=== PATIENT | female | born 1965 | race Two or more races ===

== ENCOUNTER 2016-05-25 22:27 | Emergency (ER) | payer BC, MEDICARE, OTHER ==
[2016-05-25] MEDS ORDERED: NORMAL SALINE 1000 ML 1,000 ML IV ONE (23:42)
[2016-05-25] MEDS ORDERED: HYDROMORPHONE HCL INJ/PF 2 MG/ML AMPULE IV ONE (23:43)
[2016-05-25] MEDS ORDERED: CLINDAMYCIN 300 MG/D5W RTU 50 ML IV ONE (23:45)
--- NOTE | 2016-05-25 23:50 | ER Document Report ---
[id number] INFECTION Notes: Patient is 51-year-old female with a history of lupus, vasculitis, Sjogren syndrome. She's following chemotherapy for these underlying autoimmune conditions back in November. She's not had it since November. She presents to the ER with complaint of severe pain throughout her body and return of her vasculitis-type rash. She said last time she had this was in March she became very ill and had to be transferred to [facility]. She says this is the beginning of her symptoms and she fears that her symptoms could be progressing to a blood infection like she had in the past. She currently does not have a port. She denies any vomiting. She has subjective fevers at home. She has no other complaints at this time. She did bring her discharge paperwork from [facility] from her visit there in March. It appears that she was discharged home with clindamycin. She cannot remove what bacteria she had when she was admitted there. I will request the medical records from [facility] to get further information. TRAVEL OUTSIDE OF THE [place] IN LAST 30 DAYS: No - Related Data Allergies/Adverse Reactions: amoxicillin [Amoxicillin] Allergy (Severe, Verified 05/25/16 22:50) Anaphylaxis clarithromycin [From Biaxin] Allergy (Severe, Verified 05/25/16 22:50) Severe N&V eszopiclone [From Lunesta] Allergy (Severe, Verified 05/25/16 22:50) Hyperactivity Iodinated Contrast Media - Oral and [IV Dye, Iodine Containing] Allergy (Severe , Verified 05/25/16 22:50) Anaphylaxis lisinopril [Lisinopril] Allergy (Severe, Verified 05/25/16 22:50) Severe cough Penicillins Allergy (Severe, Verified 05/25/16 22:50) Anaphylaxis lamotrigine [From Lamictal] Allergy (Verified 05/25/16 22:50) sulfamethoxazole [From Bactrim] Allergy (Verified 05/25/16 22:50) trimethoprim [From Bactrim] Allergy (Verified 05/25/16 22:50) Past Medical History - Social History Smoking Status: Never Smoker Frequency of alcohol use: None Drug Abuse: None Family History: Reviewed & Not Pertinent Patient has suicidal ideation: No Patient has homicidal ideation: No - Past Medical History Cardiac Medical History: Reports: Hx Hypertension - Family tells me that her blood pressure is often 60-80 systolic at home Denies: Hx Coronary Artery Disease, Hx Heart Attack Pulmonary Medical History: Denies: Hx Asthma, Hx Bronchitis, Hx COPD, Hx Pneumonia Neurological Medical History: Reports: Hx Cerebrovascular Accident - Pt unsure when; to followup with Dr. Wesley. Denies: Hx Seizures Endocrine Medical History: Reports: Hx Diabetes Mellitus Type 2 Renal/ Medical History: Denies: Hx Peritoneal Dialysis Musculoskeltal Medical History: Reports Hx Arthritis - Rheumatoid arthritis, lupus, vasculitis, Sjogren syndrome Past Surgical History: Reports: Hx Appendectomy, Hx Breast Surgery, Hx Hysterectomy - Immunizations Hx Diphtheria, Pertussis, Tetanus Vaccination: Yes Review of Systems - Review of Systems Notes: My Normal Review Basic REVIEW OF SYSTEMS: CONSTITUTIONAL : Denies fever, chills, or sweats. Denies recent illness. EENT: Denies eye, ear, throat, or mouth pain or symptoms. Denies nasal or sinus congestion. CARDIOVASCULAR: Denies chest pain. RESPIRATORY: Denies cough, cold, or chest congestion. Denies shortness of breath, difficulty breathing, or wheezing. GASTROINTESTINAL: Denies abdominal pain. Denies nausea, vomiting, or diarrhea. Denies constipation. Last BM: MUSCULOSKELETAL: Body aches. SKIN: Few scattered papules. NEUROLOGICAL: Denies altered mental status or loss of consciousness. Denies headache. Denies weakness or paralysis or loss of use of either side. Denies problems with gait or speech. Denies sensory or motor loss. ALL OTHER SYSTEMS REVIEWED AND NEGATIVE. Physical Exam - Vital signs Vitals: Pulse Ox 98 05/26/16 03:16 - Notes Notes: General Appearance: Well nourished, alert, cooperative, no acute distress, moderate obvious discomfort. Vitals: reviewed, See vital signs table. Head: no swelling or tenderness to the head Eyes: PERRL, EOMI, Conjuctiva clear Mouth: No decreasd moisture Throat: No tonsillar inflammation, No airway obstruction, No lymphadenopathy Neck: Supple, no neck tenderness, No thyromegaly Lungs: No wheezing, No rales, No rhonci, No accessory muscle use, good air exchange bilaterally. Heart: Tachycardic rate, Regular rythm, No murmur, no rub Abdomen: Normal BS, soft, No rigidity, No abdominal tenderness, No guarding, no rebound, no abdominal masses, no organomegaly Extremities: strength 5/5 in all extremities, good pulses in all extremities, no swelling or tenderness in the extremities, no edema. Skin: Patient has dark spots all over her skin from the previous vasculitis rash in her left scars. She has a few scattered red papules on her arms and legs. She says these are new in the last 24 hours. Neuro: speech clear, oriented x 3, normal affect, responds appropriately to questions. Course - Vital Signs Vital signs: Temp Pulse Resp BP Pulse Ox 97.7 F 104 H 18 95/56 L 99 05/26/16 05:34 05/26/16 05:34 05/26/16 05:34 05/26/16 05:34 05/26/16 05:34 - Laboratory Result Diagrams: 05/25/16 23:59 05/25/16 23:59 Laboratory results interpreted by me: 05/25/16 05/25/16 05/26/16 23:59 23:59 02:11 WBC 15.1 H Hct 35.4 L RDW 16.5 H Band Neutrophils % 2 L Abs Neuts (Manual) 11.9 H Sodium 136.6 L BUN 21 H Glucose 202 H Urine Glucose (UA) 150 H - Transfer of Care Notes: 05/26/16 06:35 I was able to obtain the medical records from [facility] for when she was transferred there.. 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 She developed MSSA bacteremia related to her port. Her port was removed. Currently the patient looks very well clinically. She has a slightly elevated excite ptosis however is only 15,000 and this is to be expected being that she is on long-term prednisone use. She has no fevers. She initially has some tachycardia when she first arrived but this was relieved after she received pain medicine. She's had no hypertension. She does present saying that she's getting some of the red dots however she has maybe a total of 6 very small red papules that are in no way consistent with the rash that she had previously. I know this because she brought a picture of the rash when she had it in March. Based on her exam she obviously does not have full-blown scalded skin syndrome currently. She is not septic or toxic appearing. She looks very well. Due to her history and her being immunosuppressed from prednisone there was placed on clindamycin in case there is a low chance that this is beginning of a recurrent infection. Clindamycin is what she was discharged home on from [facility] back in March. Patient was complaining of her back pain as were most her pain was. Patient's had this pain several times in the past and says it's recurrent in relation to her underlying disease process. Her pain was much improved with a dose of Valium with fentanyl. I will write her a short prescription for Valium. She is already on Dilaudid orally at home. I strongly encourage her to return to ER immediately if she develops any fever, she gets a spreading rash, she feels that she is worsening in any way, or she feels unwell. I encouraged follow up with her doctor on Friday. Patient agrees with plan and will be discharged home. Dictation of this chart was performed using voice recognition software; therefore, there may be some unintended grammatical errors. Discharge - Discharge Clinical Impression: Body aches, Rash Condition: Good Disposition: HOME, SELF-CARE Additional Instructions: Please do not take the Valium when taking your other muscle relaxers. Also please to not take more than prescribed especially when taking it in conjunction with your pain medicine as this can make you sleepy. Please follow closely with your doctor early this week for reevaluation. Have a low threshold to return to ER immediately if you have spreading of the rash, any fevers, vomiting, or feel that your symptoms are worsening in any way. Prescriptions: Clindamycin HCl 300 mg PO ASDIR #56 capsule Diazepam [Valium 5 mg Tablet] 5 mg PO QIDP PRN #15 tablet PRN Reason: muscle spasm Referrals: TERRENCE SAMS MD [Primary Care Provider] - 05/27/16
[2016-05-26 00:22] LABS: HEMATOCRIT 35.4 % (36.0-47.0); HGB HCT DIFFERENCE 0.6; MEAN CORPUSCULAR HEMOGLOBIN 29.3 pg (27.0-33.4); MEAN CORPUSCULAR VOLUME 86 fl (80-97); RED BLOOD COUNT 4.11 10^6/uL (3.72-5.28); RED CELL DISTRIBUTION WIDTH 16.5 % (11.5-14.0); WHITE BLOOD COUNT 15.1 10^3/uL (4.0-10.5)
[2016-05-26 00:35] LABS: ALANINE AMINOTRANSFERASE 35 U/L (9-52); ALBUMIN 4.2 g/dL (3.5-5.0); ALKALINE PHOSPHATASE 67 U/L (38-126); ANION GAP 12 (5-19); ASPARTATE AMINO TRANSFERASE 30 U/L (14-36); BILIRUBIN,TOTAL 0.7 mg/dL (0.2-1.3); BLOOD UREA NITROGEN 21 mg/dL (7-20); CALCIUM 10.1 mg/dL (8.4-10.2); CARBON DIOXIDE 27 mmol/L (22-30); CHLORIDE 98 mmol/L (98-107); CREATININE RESULT 0.74 mg/dL (0.52-1.25); GLUCOSE 202 mg/dL (75-110); POTASSIUM 4.1 mmol/L (3.6-5.0); SODIUM 136.6 mmol/L (137-145); TOTAL PROTEIN 6.8 g/dL (6.3-8.2)
[2016-05-26 00:40] LABS: BAND NEUTROPHILS % (MANUAL) 2 % (3-5); BASOPHILS % (MANUAL) 0 % (0-2); EOSINOPHILS % (MANUAL) 1 % (0-6); LYMPHOCYTES % (MANUAL) 14 % (13-45); TOTAL CELLS COUNTED 100
[2016-05-26 00:41] LABS: ANISOCYTOSIS 1+; POLYCHROMASIA SLIGHT; TOXIC GRANULATION SLIGHT
[2016-05-26] MEDS ORDERED: HYDROMORPHONE HCL INJ/PF 2 MG/ML AMPULE IV ONE (02:26)
[2016-05-26 02:39] LABS: APPEARANCE,URINE CLEAR; BILIRUBIN,URINE NEGATIVE (NEGATIVE); GLUCOSE, URINE 150 mg/dL (NEGATIVE); KETONES,URINE NEGATIVE (NEGATIVE); LEUKOCYTE ESTERASE,URINE NEGATIVE (NEGATIVE); NITRITE,URINE NEGATIVE (NEGATIVE); PROTEIN,URINE NEGATIVE (NEGATIVE); URINE SPECIFIC GRAVITY 1.017; UROBILINOGEN,URINE NEGATIVE mg/dL (<2.0)
[2016-05-26] MEDS ORDERED: FENTANYL CITRATE INJ/PF 100 MCG/2 ML AMPUL IV ONE (03:17)
[2016-05-26] MEDS ORDERED: DIAZEPAM INJ 10 MG/2 ML DISP.SYRIN IV ONE (03:51)
[2016-05-26 05:45] VITALS: BP 95/56
== END 2016-05-26 05:35 | disposition home or self-care (01) ==
LOC: ER 22:27
DX: R52 Pain, unspecified (principal); R21 Rash and other nonspecific skin eruption; M32.9 Systemic lupus erythematosus, unspecified; M35.00 Sjogren syndrome, unspecified; Z79.899 Other long term (current) drug therapy
CPT/HCPCS: 99284; 36415; 87040; 85025; 87077; 80053; 81001; 71010; J3490; J3360; J3010; J1170; J7030

== ENCOUNTER → 2016-10-14 | Outpatient (CLI) | payer BC, MEDICARE, OTHER ==
[2016-10-14 16:33] LABS: ABSOLUTE BASOPHILS # (AUTO) 0.1 10^3/uL (0.0-0.2); ABSOLUTE EOSINOPHILS # (AUTO) 0.3 10^3/uL (0.0-0.6); ABSOLUTE LYMPHOCYTES (AUTO) 1.6 10^3/uL (0.5-4.7); ABSOLUTE MONOCYTES (AUTO) 0.5 10^3/uL (0.1-1.4); ABSOLUTE NEUT (AUTO) 7.1 10^3/uL (1.7-8.2); BASOPHILS % (AUTO) 1.2 % (0-2); HEMATOCRIT 41.8 % (36.0-47.0); HEMOGLOBIN 13.7 g/dL (12.0-15.5); HGB HCT DIFFERENCE -0.7; LYMPHOCYTES % (AUTO) 16.7 % (13-45); MEAN CORPUSCULAR HEMOGLOBIN 27.3 pg (27.0-33.4); MEAN CORPUSCULAR HGB CONC 32.8 g/dL (32.0-36.0); MEAN CORPUSCULAR VOLUME 83 fl (80-97); MONOCYTES % (AUTO) 5.7 % (3-13); RED BLOOD COUNT 5.02 10^6/uL (3.72-5.28); RED CELL DISTRIBUTION WIDTH 13.3 % (11.5-14.0); SEGMENTED NEUTROPHILS % (AUTO) 73.4 % (42-78); WHITE BLOOD COUNT 9.6 10^3/uL (4.0-10.5)
[2016-10-14 16:51] LABS: ALANINE AMINOTRANSFERASE 34 U/L (9-52); ALBUMIN 4.8 g/dL (3.5-5.0); ALKALINE PHOSPHATASE 84 U/L (38-126); ANION GAP 13 (5-19); ASPARTATE AMINO TRANSFERASE 23 U/L (14-36); BILIRUBIN,DIRECT 0.3 mg/dL (0.0-0.4); BILIRUBIN,TOTAL 0.7 mg/dL (0.2-1.3); BLOOD UREA NITROGEN 13 mg/dL (7-20); CARBON DIOXIDE 30 mmol/L (22-30); CHLORIDE 99 mmol/L (98-107); CREATININE RESULT 0.69 mg/dL (0.52-1.25); GLUCOSE 174 mg/dL (75-110); POTASSIUM 3.2 mmol/L (3.6-5.0); SODIUM 141.6 mmol/L (137-145); TOTAL PROTEIN 8.1 g/dL (6.3-8.2)
[2016-10-14 17:09] LABS: ERYTHROCYTE SEDIMENTATION RATE 28 mm/hr (0-30)
== END ==
LOC: OD 15:35
PROVIDERS: ATTEND Internal Medicine Rheumatology
DX: I77.6 Arteritis, unspecified (principal); M06.4 Inflammatory polyarthropathy; M31.0 Hypersensitivity angiitis; M25.50 Pain in unspecified joint; M35.00 Sjogren syndrome, unspecified; Z79.899 Other long term (current) drug therapy
CPT/HCPCS: 36415; 80053; 85025; 85652; 86140

== ENCOUNTER 2016-11-08 20:18 | Emergency (ER) | payer BC, MEDICARE, OTHER ==
--- NOTE | 2016-11-08 22:40 | ER Document Report ---
ED General - General Chief Complaint: Fever Stated Complaint: POSSIBLE FEVER/FATIGUE/HEADACHE Time Seen by Provider: 11/08/16 22:22 Notes: Patient is a 51-year-old female that comes emergency department for chief complaint of fevers and weakness for 1 week. She states that she has body pains all over including headaches, intermittent pains in her chest, and she has difficulty getting out of bed. She denies vomiting, abdominal pain, shortness of breath, dysuria. She is on methotrexate currently for history of rheumatoid arthritis, lupus, Sjogren's, and vasculitis. She is also a type II diabetic, insulin-dependent. She just finished macrobid last week for "a kidney infection". She is wearing a fentanyl patch for pain. TRAVEL OUTSIDE OF THE [place] IN LAST 30 DAYS: No - Related Data Allergies/Adverse Reactions: amoxicillin [Amoxicillin] Allergy (Severe, Verified 05/25/16 22:50) Anaphylaxis clarithromycin [From Biaxin] Allergy (Severe, Verified 05/25/16 22:50) Severe N&V eszopiclone [From Lunesta] Allergy (Severe, Verified 05/25/16 22:50) Hyperactivity Iodinated Contrast- Oral and IV Dye [IV Dye, Iodine Containing] Allergy (Severe , Verified 05/25/16 22:50) Anaphylaxis lisinopril [Lisinopril] Allergy (Severe, Verified 05/25/16 22:50) Severe cough Penicillins Allergy (Severe, Verified 05/25/16 22:50) Anaphylaxis lamotrigine [From Lamictal] Allergy (Verified 05/25/16 22:50) sulfamethoxazole [From Bactrim] Allergy (Verified 05/25/16 22:50) trimethoprim [From Bactrim] Allergy (Verified 05/25/16 22:50) Past Medical History - General Information source: Patient - Social History Smoking Status: Never Smoker Frequency of alcohol use: None Drug Abuse: None Lives with: Family Family History: Reviewed & Not Pertinent Patient has suicidal ideation: No Patient has homicidal ideation: No - Past Medical History Cardiac Medical History: Reports: Hx Hypertension - Family tells me that her blood pressure is often 60-80 systolic at home Denies: Hx Coronary Artery Disease, Hx Heart Attack Pulmonary Medical History: Denies: Hx Asthma, Hx Bronchitis, Hx COPD, Hx Pneumonia Neurological Medical History: Reports: Hx Cerebrovascular Accident - Pt unsure when; to followup with Dr. Wesley. Denies: Hx Seizures Endocrine Medical History: Reports: Hx Diabetes Mellitus Type 2 Renal/ Medical History: Denies: Hx Peritoneal Dialysis Musculoskeltal Medical History: Reports Hx Arthritis - Rheumatoid arthritis, lupus, vasculitis, Sjogren syndrome Past Surgical History: Reports: Hx Appendectomy, Hx Breast Surgery, Hx Hysterectomy - Immunizations Hx Diphtheria, Pertussis, Tetanus Vaccination: Yes Review of Systems - Review of Systems Constitutional: See HPI EENT: No symptoms reported Cardiovascular: See HPI Respiratory: No symptoms reported Gastrointestinal: No symptoms reported Genitourinary: No symptoms reported Female Genitourinary: No symptoms reported Musculoskeletal: See HPI Skin: No symptoms reported Hematologic/Lymphatic: No symptoms reported Neurological/Psychological: See HPI Physical Exam - Vital signs Vitals: Temp Pulse Resp BP Pulse Ox 99.1 F 113 H 16 125/75 94 11/08/16 21:03 11/08/16 21:03 11/08/16 21:03 11/08/16 21:03 11/08/16 21:03 Interpretation: Normal - General General appearance: Alert, Anxious - patient appears nervous but is not in any distress In distress: None - HEENT Head: Normocephalic, Atraumatic Eyes: Normal Conjunctiva: Normal Extraocular movements intact: Yes Eyelashes: Normal Pupils: PERRL Sinus: Normal Nasal: Normal Mouth/Lips: Normal Mucous membranes: Normal Pharynx: Normal Neck: Normal. No: Brudzinski, Meningismus - Respiratory Respiratory status: No respiratory distress. No: Labored, Tachypnea Chest status: Nontender Breath sounds: Normal. No: Decreased air movement, Nonproductive cough, Wheezing Chest palpation: Normal - Cardiovascular Rhythm: Regular, Tachycardia Heart sounds: Normal auscultation, S1 appreciated, S2 appreciated Murmur: No - Abdominal Inspection: Normal Distension: No distension Bowel sounds: Normal Tenderness: Nontender. No: Tender, Guarding Organomegaly: No organomegaly - Back Back: Normal, Nontender - Extremities General upper extremity: Normal inspection, Nontender, Normal color, Normal ROM , Normal temperature General lower extremity: Normal inspection, Nontender, Normal color, Normal ROM , Normal temperature, Normal weight bearing. 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 However she is alert and well-appearing. Clear lungs, soft abdomen, unremarkable exam other than slight reddish discoloration of the lower extremities which patient reports is chronic with her vasculitis. No nuchal rigidity. No fever here on evaluation. Patient initially mildly tachycardic, after calming down this resolved, patient was also given IV fluids. No leukocytosis, chemistry shows mild hyperglycemia with no acidosis, lactic acid nonspecific at 2.9, urine with a few white blood cells but is nonspecific as well. Chest x-ray unremarkable. Venous blood gas unremarkable. Discussed with Dr. Kulkarni. He recommends that a repeat lactic acid, chemistry, and CBC be performed to trend patient and if this is improving that patient can be discharged with broad-spectrum coverage with close follow-up obstructed and cultures pending. I discussed this with patient, she is very happy with this plan. Lactic acid downtrending, repeat labs unremarkable. Patient well-appearing on reexamination as well. Patient will be discharged with doxycycline, follow-up with her provider closely, and return for any concerning symptoms. Patient asked to talk at the end of her stay, she did talk for about 15 minutes about her life and situation, she states she feels better afterwards. She has a supportive at home. She denies SI or HI. She also states that she has just signed DNR paperwork. Patient states she will return if she worsens in any way. - Vital Signs Vital signs: Temp Pulse Resp BP Pulse Ox 98.9 F 113 H 13 119/70 97 11/09/16 00:30 11/08/16 21:03 11/09/16 02:06 11/09/16 01:15 11/09/16 01:15 - Laboratory Result Diagrams: 11/09/16 02:30 11/09/16 02:30 Laboratory results interpreted by me: 11/08/16 11/08/16 11/08/16 23:30 23:30 23:30 Hgb Hct RDW 14.2 H Lymphocytes % Potassium Chloride BUN Glucose Lactic Acid 2.9 H Total Protein Urine Glucose (UA) >=500 H Urine Ketones TRACE H Ur Leukocyte Esterase TRACE H 11/08/16 11/09/16 11/09/16 23:33 02:00 02:30 Hgb 11.6 L Hct 33.7 L RDW Lymphocytes % 12.3 L Potassium 3.4 L Chloride 97 L BUN 22 H Glucose 310 H Lactic Acid 2.5 H Total Protein Urine Glucose (UA) Urine Ketones Ur Leukocyte Esterase 11/09/16 02:30 Hgb Hct RDW Lymphocytes % Potassium Chloride BUN 21 H Glucose 288 H Lactic Acid Total Protein 6.2 L Urine Glucose (UA) Urine Ketones Ur Leukocyte Esterase Discharge - Discharge Clinical Impression: Body aches Fever Qualifiers: Fever type: unspecified Qualified Code(s): R50.9 - Fever, unspecified Condition: Stable Disposition: HOME, SELF-CARE Additional Instructions: The exact source of infection is not clear. We are covering you broadly with doxycycline. Follow up with your Provider in the next 2-3 days for additional monitoring and management. Return to the ED for any concerning or worsening symptoms - difficulty breathing , stiff neck, abdominal pain, vomiting, etc. Prescriptions: Doxycycline Hyclate 100 mg PO BID #14 capsule Referrals: TERRENCE SAMS MD [Primary Care Provider] - Follow up as needed
--- NOTE | 2016-11-08 23:03 | RADIOLOGY REPORT (SQ) ---
EXAM DESCRIPTION: CHEST PA/LAT COMPLETED DATE/TIME: 11/08/2016 10:55 pm REASON FOR STUDY: fever, chest pain COMPARISON: 03/13/2016 EXAM PARAMETERS: NUMBER OF VIEWS: two views TECHNIQUE: Digital Frontal and Lateral radiographic views of the chest acquired. RADIATION DOSE: NA LIMITATIONS: none FINDINGS: LUNGS AND PLEURA: No acute opacities, masses or pneumothorax. No pleural effusion. MEDIASTINUM AND HILAR STRUCTURES: Stable. HEART AND VASCULAR STRUCTURES: Stable. BONES: No acute findings. HARDWARE: None in the chest. OTHER: No other significant finding. IMPRESSION: No acute findings. TECHNICAL DOCUMENTATION: JOB ID: [id number] [employer]- All Rights Reserved
[2016-11-09 00:11] LABS: VENOUS BLOOD BASE EXCESS 2.4 mmol/L; VENOUS BLOOD HCO3 29.2 mmol/L (20-32); VENOUS BLOOD PCO2 54.1 mmHg (35-63); VENOUS BLOOD PH 7.35 (7.30-7.42)
[2016-11-09 00:12] LABS: APPEARANCE,URINE CLEAR; BILIRUBIN,URINE NEGATIVE (NEGATIVE); GLUCOSE, URINE >=500 mg/dL (NEGATIVE); KETONES,URINE TRACE mg/dL (NEGATIVE); LEUKOCYTE ESTERASE,URINE TRACE (NEGATIVE); NITRITE,URINE NEGATIVE (NEGATIVE); PROTEIN,URINE NEGATIVE (NEGATIVE); URINE SPECIFIC GRAVITY 1.018; UROBILINOGEN,URINE NEGATIVE mg/dL (<2.0)
[2016-11-09 00:14] LABS: ABSOLUTE BASOPHILS # (AUTO) 0.1 10^3/uL (0.0-0.2); ABSOLUTE EOSINOPHILS # (AUTO) 0.3 10^3/uL (0.0-0.6); ABSOLUTE LYMPHOCYTES (AUTO) 1.6 10^3/uL (0.5-4.7); ABSOLUTE MONOCYTES (AUTO) 0.7 10^3/uL (0.1-1.4); BASOPHILS % (AUTO) 1.1 % (0-2); EOSINOPHILS % (AUTO) 3.2 % (0-6); HEMATOCRIT 37.4 % (36.0-47.0); HEMOGLOBIN 12.6 g/dL (12.0-15.5); HGB HCT DIFFERENCE 0.4; LYMPHOCYTES % (AUTO) 16.7 % (13-45); MEAN CORPUSCULAR HEMOGLOBIN 28.4 pg (27.0-33.4); MEAN CORPUSCULAR HGB CONC 33.7 g/dL (32.0-36.0); MEAN CORPUSCULAR VOLUME 84 fl (80-97); MONOCYTES % (AUTO) 7.7 % (3-13); RED BLOOD COUNT 4.44 10^6/uL (3.72-5.28); RED CELL DISTRIBUTION WIDTH 14.2 % (11.5-14.0); SEGMENTED NEUTROPHILS % (AUTO) 71.3 % (42-78); WHITE BLOOD COUNT 9.7 10^3/uL (4.0-10.5)
[2016-11-09] MEDS ORDERED: FENTANYL CITRATE INJ/PF 100 MCG/2 ML AMPUL IV ONE (00:17)
[2016-11-09 00:28] LABS: ALANINE AMINOTRANSFERASE 35 U/L (9-52); ALBUMIN 4.3 g/dL (3.5-5.0); ALKALINE PHOSPHATASE 86 U/L (38-126); ANION GAP 16 (5-19); ASPARTATE AMINO TRANSFERASE 27 U/L (14-36); BILIRUBIN,DIRECT 0.4 mg/dL (0.0-0.4); BILIRUBIN,TOTAL 0.5 mg/dL (0.2-1.3); BLOOD UREA NITROGEN 22 mg/dL (7-20); CARBON DIOXIDE 24 mmol/L (22-30); CHLORIDE 97 mmol/L (98-107); CREATINE KINASE 45 U/L (30-135); CREATININE RESULT 0.68 mg/dL (0.52-1.25); GLUCOSE 310 mg/dL (75-110); POTASSIUM 3.4 mmol/L (3.6-5.0); SODIUM 137.4 mmol/L (137-145); TOTAL PROTEIN 6.8 g/dL (6.3-8.2)
[2016-11-09 00:38] LABS: CREATINE KINASE MB 0.39 ng/mL (<4.55)
[2016-11-09 00:44] LABS: TROPONIN I < 0.012 ng/mL
[2016-11-09] MEDS ORDERED: NORMAL SALINE 1000 ML 1,000 ML IV ONE (00:46)
[2016-11-09] MEDS ORDERED: DOXYCYCLINE HYCLATE INJ 100 MG VIAL IV ONE (01:11)
[2016-11-09 02:38] VITALS: BP 119/70
[2016-11-09 02:51] LABS: ABSOLUTE BASOPHILS # (AUTO) 0.1 10^3/uL (0.0-0.2); ABSOLUTE EOSINOPHILS # (AUTO) 0.2 10^3/uL (0.0-0.6); ABSOLUTE LYMPHOCYTES (AUTO) 1.1 10^3/uL (0.5-4.7); ABSOLUTE MONOCYTES (AUTO) 0.7 10^3/uL (0.1-1.4); ABSOLUTE NEUT (AUTO) 6.7 10^3/uL (1.7-8.2); EOSINOPHILS % (AUTO) 2.6 % (0-6); HEMATOCRIT 33.7 % (36.0-47.0); HEMOGLOBIN 11.6 g/dL (12.0-15.5); HGB HCT DIFFERENCE 1.1; LYMPHOCYTES % (AUTO) 12.3 % (13-45); MEAN CORPUSCULAR HEMOGLOBIN 28.6 pg (27.0-33.4); MEAN CORPUSCULAR HGB CONC 34.4 g/dL (32.0-36.0); MEAN CORPUSCULAR VOLUME 83 fl (80-97); MONOCYTES % (AUTO) 7.5 % (3-13); RED BLOOD COUNT 4.05 10^6/uL (3.72-5.28); SEGMENTED NEUTROPHILS % (AUTO) 76.6 % (42-78); WHITE BLOOD COUNT 8.8 10^3/uL (4.0-10.5)
[2016-11-09 02:56] LABS: ALANINE AMINOTRANSFERASE 35 U/L (9-52); ALBUMIN 3.8 g/dL (3.5-5.0); ALKALINE PHOSPHATASE 74 U/L (38-126); ANION GAP 12 (5-19); ASPARTATE AMINO TRANSFERASE 23 U/L (14-36); BILIRUBIN,DIRECT 0.4 mg/dL (0.0-0.4); BILIRUBIN,TOTAL 0.5 mg/dL (0.2-1.3); BLOOD UREA NITROGEN 21 mg/dL (7-20); CALCIUM 8.4 mg/dL (8.4-10.2); CARBON DIOXIDE 24 mmol/L (22-30); CHLORIDE 101 mmol/L (98-107); CREATININE RESULT 0.71 mg/dL (0.52-1.25); GLUCOSE 288 mg/dL (75-110); POTASSIUM 3.8 mmol/L (3.6-5.0); SODIUM 137.1 mmol/L (137-145); TOTAL PROTEIN 6.2 g/dL (6.3-8.2)
--- NOTE | 2016-11-09 10:03 | EKG REPORT ---
SEVERITY:- ABNORMAL ECG - SINUS TACHYCARDIA PROBABLE INFERIOR INFARCT, AGE INDETERMINATE : Confirmed by: Roland Frank MD 09-Nov-2016 10:03:00
== END 2016-11-09 04:34 | disposition home or self-care (01) ==
LOC: ER 20:18
DX: R50.9 Fever, unspecified (principal); R53.1 Weakness; R51 Headache; R07.9 Chest pain, unspecified; M35.00 Sjogren syndrome, unspecified; F41.9 Anxiety disorder, unspecified; R00.0 Tachycardia, unspecified; I77.6 Arteritis, unspecified; M06.9 Rheumatoid arthritis, unspecified; Z79.899 Other long term (current) drug therapy; E11.65 Type 2 diabetes mellitus with hyperglycemia; Z79.4 Long term (current) use of insulin; Z87.440 Personal history of urinary (tract) infections; Z88.1 Allergy status to other antibiotic agents; Z91.041 Radiographic dye allergy status; Z88.8 Allergy status to other drugs, medicaments and biological substances; Z87.892 Personal history of anaphylaxis; Z88.0 Allergy status to penicillin; Z86.73 Personal history of transient ischemic attack (TIA), and cerebral infarction without residual deficits; Z66 Do not resuscitate
CPT/HCPCS: 93005; 99285; 96361; 96375; 96365; 36415; 87040; 87086; 82553; 82550; 83605 ×2; 85025; 80053; 81001; 84484; 82803; 71020; 93010; J3490; J3010; J7030

== ENCOUNTER 2017-03-07 04:58 | Emergency (ER) | payer BC, MEDICARE, OTHER ==
[2017-03-07] MEDS ORDERED: PROCHLORPERAZINE EDISYLATE INJ 10 MG/2 ML VIAL IM ONE (05:39)
[2017-03-07] MEDS ORDERED: DIPHENHYDRAMINE HCL 50 MG/ML VIAL IV ONE (05:39)
--- NOTE | 2017-03-07 05:42 | ER Document Report ---
ED General - General TRAVEL OUTSIDE OF THE [place]. IN LAST 30 DAYS: No <RICARDO GAFFNEY - Last Filed: 03/07/17 06:52> <DANIELLE HAYNES - Last Filed: 03/07/17 08:11> - General Chief Complaint: Headache >24 hrs old Stated Complaint: WEAKNESS Time Seen by Provider: 03/07/17 05:38 - HPI Notes: Patient is a 51-year-old female with a history of rheumatoid arthritis, lupus, Sjogren's, vasculitis, insulin-dependent diabetes, HTN who presents to the ED complaining of an ongoing headache and dizziness 1 month, but has been more frequent over the last 1.5 weeks. Pt states that she has also begun having hallucinations of things jumping on the nassar over the last couple of weeks. Pt states that she does take pain medication for her chronic WINCHESTER's, but it has not been helping. Pt states that she had an MRI in january that showed lesions on the left side of her brain. Pt states that she is being eval'd by Neurology as well as her PCM. Pt states that she is still eating and drinking w/o any difficulties. She is still urinating normally and having normal BM's. Pt will have occ nausea from her dizziness which she will take zofran for. Pt is also on methotrexate and prednisone daily. Pt is also doing chemotherapy for her autoimmune processes. Her last treatment was Friday. Pt denies any IV drug use or ETOH intake. Denies any fever, head injury, neck pain, changes in vision /speech/mentation/hearing, URI, sore throat, chest pain, palpitations, syncope, cough, shortness of breath, wheeze, dyspnea, abdominal pain, vomiting/diarrhea, urinary retention, dysuria, hematuria, back pain, loss of control of bowel or bladder, numbness/tingling, saddle anesthesia, muscle paralysis/weakness, or rash. (RICARDO GAFFNEY) - Related Data Allergies/Adverse Reactions: amoxicillin [Amoxicillin] Allergy (Severe, Verified 05/25/16 22:50) Anaphylaxis clarithromycin [From Biaxin] Allergy (Severe, Verified 05/25/16 22:50) Severe N&V eszopiclone [From Lunesta] Allergy (Severe, Verified 05/25/16 22:50) Hyperactivity Iodinated Contrast- Oral and IV Dye [IV Dye, Iodine Containing] Allergy (Severe , Verified 05/25/16 22:50) Anaphylaxis lisinopril [Lisinopril] Allergy (Severe, Verified 05/25/16 22:50) Severe cough Penicillins Allergy (Severe, Verified 05/25/16 22:50) Anaphylaxis lamotrigine [From Lamictal] Allergy (Verified 05/25/16 22:50) sulfamethoxazole [From Bactrim] Allergy (Verified 05/25/16 22:50) trimethoprim [From Bactrim] Allergy (Verified 05/25/16 22:50) Past Medical History - Social History Smoking Status: Unknown if Ever Smoked Family History: Reviewed & Not Pertinent Patient has suicidal ideation: No Patient has homicidal ideation: No - Past Medical History Cardiac Medical History: Reports: Hx Hypertension - Family tells me that her blood pressure is often 60-80 systolic at home Denies: Hx Coronary Artery Disease, Hx Heart Attack Pulmonary Medical History: Denies: Hx Asthma, Hx Bronchitis, Hx COPD, Hx Pneumonia Neurological Medical History: Reports: Hx Cerebrovascular Accident - Pt unsure when; to followup with Dr. Wesley. Denies: Hx Seizures Endocrine Medical History: Reports: Hx Diabetes Mellitus Type 2 Renal/ Medical History: Denies: Hx Peritoneal Dialysis Musculoskeltal Medical History: Reports Hx Arthritis - Rheumatoid arthritis, lupus, vasculitis, Sjogren syndrome Past Surgical History: Reports: Hx Appendectomy, Hx Breast Surgery, Hx Hysterectomy - Immunizations Hx Diphtheria, Pertussis, Tetanus Vaccination: Yes <RICARDO GAFFNEY - Last Filed: 03/07/17 06:52> Review of Systems <RICARDO GAFFNEY - Last Filed: 03/07/17 06:52> <DANIELLE HAYNES - Last Filed: 03/07/17 08:11> - Review of Systems Notes: REVIEW OF SYSTEMS: CONSTITUTIONAL : Denies fever, chills, or sweats. Denies recent illness. EENT: Denies eye, ear, throat, or mouth pain or symptoms. Denies nasal or sinus congestion or discharge. Denies throat, tongue, or mouth swelling or difficulty swallowing. CARDIOVASCULAR: Denies chest pain. Denies palpitations or racing or irregular heart beat. Denies ankle edema. RESPIRATORY: Denies cough, cold, or chest congestion. Denies shortness of breath, difficulty breathing, or wheezing. GASTROINTESTINAL: Denies abdominal pain or distention. Denies nausea, vomiting , or diarrhea. GENITOURINARY: Denies difficulty urinating, painful urination, burning, frequency, blood in urine, or discharge. MUSCULOSKELETAL: Denies back or neck pain or stiffness. Denies joint pain or swelling. SKIN: Denies rash, lesions or sores. NEUROLOGICAL: see hpi. Denies confusion or altered mental status. Denies passing out or loss of consciousness. Denies weakness or paralysis or loss of use of either side. Denies problems with speech. Denies sensory loss, numbness , or tingling. Denies seizures. PSYCHIATRIC: Denies anxiety or stress. Denies depression, suicidal ideation, or homicidal ideation. ALL OTHER SYSTEMS REVIEWED AND NEGATIVE. Dictation was performed using [employer] recognition software (RICARDO GAFFNEY) Physical Exam <RICARDO GAFFNEY - Last Filed: 03/07/17 06:52> <DANIELLE HAYNES - Last Filed: 03/07/17 08:11> - Vital signs Vitals: Temp Pulse Resp BP Pulse Ox 98 F 82 16 112/77 95 03/07/17 05:09 03/07/17 05:09 03/07/17 05:09 03/07/17 05:09 03/07/17 05:09 Notes: PHYSICAL EXAMINATION: GENERAL: Well-appearing, well-nourished and in no acute distress. A&Ox4 HEAD: Atraumatic, normocephalic. Non-tender. EYES: Pupils equal round and reactive to light, extraocular movements intact, sclera anicteric, conjunctiva are normal. ENT: EAC clear b/l. TM's intact b/l without erythema, fluid, or perforation. Nares patent and without discharge. oropharynx clear without exudates. No tonsilar hypertrophy or erythema. Moist mucous membranes. NECK: Normal range of motion, supple without lymphadenopathy. No rigidity. No midline tenderness. Spurling negative. LUNGS: Breath sounds clear to auscultation bilaterally and equal. No wheezes rales or rhonchi. HEART: Regular rate and rhythm without murmurs, rubs, gallops. ABDOMEN: Soft, nontender, nondistended abdomen. No guarding, no rebound. No masses appreciated. Normal bowel sounds present. No CVA tenderness bilaterally. Musculoskeletal: Ext b/l: FROM to passive/active. Strength 5+/5. No deficits noted. No bony tenderness of extremities. Back: FROM to passive/active. Strength 5+/5. No vertebral point tenderness, stepoffs, or deformities. No other bony tenderness or ecchymosis. Extremities: No cyanosis, clubbing, or edema b/l. Peripheral pulses 2+. Capillary refill less than 2 seconds. NEUROLOGICAL: MMSE intact. Cranial nerves grossly intact. Normal speech, normal gait. Normal sensory, motor exams. Reflexes 2+ b/l. OSMAR's negative. Pronator drift negative. Heel/fong, finger/nose wnl. PSYCH: Normal mood, normal affect. SKIN: Warm, Dry, normal turgor, no rashes or lesions noted. (RICARDO GAFFNEY) Course - Laboratory Result Diagrams: 03/07/17 06:10 03/07/17 06:10 <RICARDO GAFFNEY - Last Filed: 03/07/17 06:52> - Laboratory Result Diagrams: 03/07/17 06:10 03/07/17 06:10 - Diagnostic Test Radiology reviewed: Reports reviewed - I assumed care of patient from night time mid-level provider Ricardo Gaffney. Shown it done the extensive workup on patient with new onset of headaches that were not getting any better on current treatment. As per Ricardo I was waiting on CT report to make sure there was nothing acute and if all negative could DC patient home. I discussed findings with patient's Denny and he is in agreement that he can take patient home and have her sleep there. 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 At this time it do not believe we need to obtain a urine specimen given patient's primary complaint has been her headaches. She has had no urinary symptoms. Patient and are ready to go home. <DANIELLE HAYNES - Last Filed: 03/07/17 08:11> - Re-evaluation Re-evalutation: 03/07/17 06:32 Recheck of patient after medications given. Pt states WINCHESTER has improved and she is feeling better, just drowsy (as to be expected). 03/07/17 06:33 As long as the patient's labs and imaging come back unremarkable, we will be able to discharge in stable condition as her WINCHESTER has already improved with close f/u with Dr. Monrdagon and Gurwinder. Pt is tolerating PO w/o difficulty. Vitals are stable and PE is otherwise unremarkable for any acute focal neurological deficits. (RICARDO GAFFNEY) - Vital Signs Vital signs: Temp Pulse Resp BP Pulse Ox 98 F 82 16 112/77 95 03/07/17 05:09 03/07/17 05:09 03/07/17 05:09 03/07/17 05:09 03/07/17 05:09 - Laboratory Laboratory results interpreted by me: 03/07/17 03/07/17 06:10 06:10 Hct 34.6 L RDW 14.5 H Potassium 3.4 L Carbon Dioxide 32 H Glucose 232 H Discharge <RICARDO GAFFNEY - Last Filed: 03/07/17 06:52> <DANIELLE HAYNES - Last Filed: 03/07/17 08:11> - Discharge Clinical Impression: Headache Qualifiers: Headache type: unspecified Headache chronicity pattern: acute headache Intractability: not intractable Qualified Code(s): R51 - Headache Disposition: HOME, SELF-CARE Instructions: Intravenous Compazine for Headaches ([facility]), Use of Diphenhydramine , Headache ([facility]) Additional Instructions: Rest, Ice Tylenol/ibuprofen as needed Continue home medications as directed Light stretches daily Strength exercises as able Moist heat and massage may help F/u with your PCP in 3-5 days for a recheck F/u: with Dr. Mondragon as well in 3-5 days Return to the ED with any worsening symptoms and/or development of fever, headache, changes in behavior/mentation/speech/vision, chest pain, palpitations , syncope, shortness of breath, trouble breathing, abdominal pain, n/v/d, blood in stool/urine, loss of control of bowel/bladder, urinary retention, muscle weakness/paralysis, saddle anesthesia, numbness/tingling, or other worsening symptoms that are concerning to you. Prescriptions: Ondansetron [Zofran Odt 4 mg Tablet] 1 - 2 tab PO Q4H PRN #15 tab.rapdis PRN Reason: For Nausea/Vomiting Referrals: NIKKI MONDRAGON MD [ACTIVE STAFF] - Follow up in 3-5 days TERRENCE SAMS MD [Primary Care Provider] - Follow up in 3-5 days
[2017-03-07 06:21] LABS: ABSOLUTE BASOPHILS # (AUTO) 0.1 10^3/uL (0.0-0.2); ABSOLUTE EOSINOPHILS # (AUTO) 0.2 10^3/uL (0.0-0.6); ABSOLUTE LYMPHOCYTES (AUTO) 1.9 10^3/uL (0.5-4.7); ABSOLUTE MONOCYTES (AUTO) 0.6 10^3/uL (0.1-1.4); ABSOLUTE NEUT (AUTO) 4.9 10^3/uL (1.7-8.2); BASOPHILS % (AUTO) 1.4 % (0-2); EOSINOPHILS % (AUTO) 2.1 % (0-6); HEMATOCRIT 34.6 % (36.0-47.0); HGB HCT DIFFERENCE 1.4; LYMPHOCYTES % (AUTO) 25.3 % (13-45); MEAN CORPUSCULAR HEMOGLOBIN 28.9 pg (27.0-33.4); MEAN CORPUSCULAR HGB CONC 34.5 g/dL (32.0-36.0); MEAN CORPUSCULAR VOLUME 84 fl (80-97); MONOCYTES % (AUTO) 7.8 % (3-13); RED BLOOD COUNT 4.14 10^6/uL (3.72-5.28); RED CELL DISTRIBUTION WIDTH 14.5 % (11.5-14.0); SEGMENTED NEUTROPHILS % (AUTO) 63.4 % (42-78); WHITE BLOOD COUNT 7.7 10^3/uL (4.0-10.5)
--- NOTE | 2017-03-07 06:38 | EKG REPORT ---
SEVERITY:- NORMAL ECG - SINUS RHYTHM : Confirmed by: Roland Frank MD 07-Mar-2017 06:38:06
[2017-03-07 06:45] LABS: ALANINE AMINOTRANSFERASE 29 U/L (9-52); ALBUMIN 4.2 g/dL (3.5-5.0); ALKALINE PHOSPHATASE 69 U/L (38-126); ANION GAP 10 (5-19); ASPARTATE AMINO TRANSFERASE 24 U/L (14-36); BILIRUBIN,DIRECT 0.4 mg/dL (0.0-0.4); BILIRUBIN,TOTAL 0.6 mg/dL (0.2-1.3); BLOOD UREA NITROGEN 18 mg/dL (7-20); CALCIUM 9.6 mg/dL (8.4-10.2); CARBON DIOXIDE 32 mmol/L (22-30); CHLORIDE 99 mmol/L (98-107); GLUCOSE 232 mg/dL (75-110); POTASSIUM 3.4 mmol/L (3.6-5.0); SODIUM 141.1 mmol/L (137-145)
[2017-03-07] MEDS ORDERED: NORMAL SALINE 1000 ML 1,000 ML IV ONE (06:51)
--- NOTE | 2017-03-07 07:08 | RADIOLOGY REPORT (SQ) ---
EXAM DESCRIPTION: CT HEAD WITHOUT COMPLETED DATE/TIME: 03/07/2017 6:46 am REASON FOR STUDY: headache COMPARISON: CT head 03/03/2016. TECHNIQUE: Axial images acquired through the brain without intravenous contrast. Images reviewed wi th bone, brain and subdural windows. Images stored on PACS. All CT scanners at this facility use dose modulation, iterative reconstruction, and/or weight based d osing when appropriate to reduce radiation dose to as low as reasonably achievable (ALARA). [facility]: Dose Right [facility]: CareDose [facility]: Dose Right [facility]: Teradose 4D [facility]: Smart Technologies RADIATION DOSE: mGy. LIMITATIONS: None. FINDINGS: VENTRICLES: Normal size and contour. CEREBRUM: No mass effect. No hemorrhage. No midline shift. No evidence for acute infarction. [place]/white matter differentiation. CEREBELLUM: No hemorrhage. No alteration of density. No evidence for acute infarction. EXTRAAXIAL SPACES: No fluid collections. ORBITS AND GLOBE: Symmetrical contour of the globes. CALVARIUM: No depressed fracture. PARANASAL SINUSES: No air-fluid level. SOFT TISSUES: No hematoma. IMPRESSION: No acute intracranial hemorrhage or acute territorial infarct. EVIDENCE OF ACUTE STROKE: NO. COMMENT: Quality ID # [id number]: Final reports with documentation of one or more dose reduction techniques (e.g., Automated exposure control, adjustment of the mA and/or kV according to patient size, use of iterative reconstruction technique) TECHNICAL DOCUMENTATION: JOB ID: [id number] [employer] All Rights Reserved
[2017-03-07 08:32] VITALS: BP 97/67
== END 2017-03-07 08:30 | disposition home or self-care (01) ==
LOC: ER 04:58
DX: R51 Headache (principal); R53.1 Weakness; E11.9 Type 2 diabetes mellitus without complications; M06.9 Rheumatoid arthritis, unspecified; M35.00 Sjogren syndrome, unspecified; Z90.710 Acquired absence of both cervix and uterus; Z88.0 Allergy status to penicillin; Z88.3 Allergy status to other anti-infective agents; Z79.4 Long term (current) use of insulin; Z86.73 Personal history of transient ischemic attack (TIA), and cerebral infarction without residual deficits
CPT/HCPCS: 93005; 99285; 96372; 96361; 96374; 36415; 85025; 80053; 70450; 93010; J1200; J0780; J7030

== ENCOUNTER 2017-08-20 15:07 | Emergency (ER) | payer OTHER, BC, MEDICARE ==
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
[2017-08-20] MEDS ORDERED: DIAZEPAM 5 MG TABLET PO ONE (15:48)
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
[2017-08-20 16:55] VITALS: BP 93/59
== END 2017-08-20 16:56 | disposition home or self-care (01) ==
LOC: ER 15:07
DX: S29.019A Strain of muscle and tendon of unspecified wall of thorax, initial encounter (principal); M54.6 Pain in thoracic spine; V43.62XA Car passenger injured in collision with other type car in traffic accident, initial encounter; Z88.0 Allergy status to penicillin; Z88.3 Allergy status to other anti-infective agents; E11.9 Type 2 diabetes mellitus without complications; Z90.710 Acquired absence of both cervix and uterus
CPT/HCPCS: 72070; 99283

== ENCOUNTER 2017-12-29 05:21 | Emergency (ER) | payer BC, MEDICARE, OTHER ==
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
--- NOTE | 2017-12-29 10:29 | RADIOLOGY REPORT (SQ) ---
EXAM DESCRIPTION: U/S THYROID/SFT TISS HD NECK COMPLETED DATE/TIME: 12/29/2017 9:38 am REASON FOR STUDY: reports spont.severe swelling upper back/neck area COMPARISON: None. TECHNIQUE: Dynamic and static grayscale images acquired of the localized site of clinical concern an d recorded on PACS. Additional selected color Doppler and spectral images recorded. SITE OF CONCERN: Posterior upper back LIMITATIONS: None. FINDINGS: SKIN AND SUBCUTANEOUS TISSUES: No masses. No fluid collections. No edema. No foreign dang s. DEEP SOFT TISSUES/MUSCLES: No masses. No fluid collections. No edema. IMPRESSION: 1. NO SOFT TISSUE MASS, FLUID COLLECTION, OR FOREIGN BODY. TECHNICAL DOCUMENTATION: JOB ID: [id number] [employer]- All Rights Reserved Reading location - IP/workstation name: [email or web address]
[2017-12-29] MEDS ORDERED: HYDROMORPHONE HCL INJ/PF 2 MG/ML AMPULE IV ONE (11:28)
[2017-12-29] MEDS ORDERED: KETOROLAC TROMETHAMINE INJ/PF 30 MG/1 ML SDV IV ONE (12:09)
[2017-12-29 12:39] LABS: ABSOLUTE BASOPHILS # (AUTO) 0.1 10^3/uL (0.0-0.2); ABSOLUTE EOSINOPHILS # (AUTO) 0.2 10^3/uL (0.0-0.6); ABSOLUTE LYMPHOCYTES (AUTO) 2.2 10^3/uL (0.5-4.7); ABSOLUTE MONOCYTES (AUTO) 0.4 10^3/uL (0.1-1.4); ABSOLUTE NEUT (AUTO) 6.1 10^3/uL (1.7-8.2); BASOPHILS % (AUTO) 0.7 % (0-2); EOSINOPHILS % (AUTO) 1.9 % (0-6); HEMATOCRIT 35.1 % (36.0-47.0); HEMOGLOBIN 12.2 g/dL (12.0-15.5); LYMPHOCYTES % (AUTO) 24.8 % (13-45); MEAN CORPUSCULAR HEMOGLOBIN 29.7 pg (27.0-33.4); MEAN CORPUSCULAR HGB CONC 34.8 g/dL (32.0-36.0); MEAN CORPUSCULAR VOLUME 86 fl (80-97); PLATELET COUNT 357 10^3/uL (150-450); RED CELL DISTRIBUTION WIDTH 14.7 % (11.5-14.0); SEGMENTED NEUTROPHILS % (AUTO) 67.6 % (42-78); TOTAL CELLS COUNTED % (AUTO) 100 %
--- NOTE | 2017-12-29 12:50 | RADIOLOGY REPORT (SQ) ---
EXAM DESCRIPTION: T SPINE AP/LAT COMPLETED DATE/TIME: 12/29/2017 12:36 pm REASON FOR STUDY: upper thoracic pain , focal soft tissue swelling with palpable nodule over the tho racic region COMPARISON: Thoracic spine plain films 08/20/2017 NUMBER OF VIEWS: Two views. TECHNIQUE: AP and lateral radiographic images acquired of the thoracic spine. LIMITATIONS: None. FINDINGS: MINERALIZATION: Osteopenic ALIGNMENT: Normal. No scoliosis. VERTEBRAE: No fracture or bone lesion. Maintained height, normal segmentation. DISCS: No significant loss of height or significant narrowing. Bulky osteophytes at T6-7 and T7-8. HARDWARE: None in the spine. MEDIASTINUM AND SOFT TISSUES: Normal heart size and aortic contour. No soft tissue abnormality. VISUALIZED LUNG DIAZ: Clear. OTHER: No other significant finding. IMPRESSION: NO SIGNIFICANT RADIOGRAPHIC FINDING IN THE THORACIC SPINE. TECHNICAL DOCUMENTATION: JOB ID: [id number] [employer]- All Rights Reserved Reading location - IP/workstation name: [email or web address]
[2017-12-29 13:08] LABS: ALANINE AMINOTRANSFERASE 22 U/L (9-52); ALBUMIN 4.1 g/dL (3.5-5.0); ALKALINE PHOSPHATASE 63 U/L (38-126); ANION GAP 7 (5-19); ASPARTATE AMINO TRANSFERASE 36 U/L (14-36); BILIRUBIN,DIRECT 0.6 mg/dL (0.0-0.4); BILIRUBIN,TOTAL 0.8 mg/dL (0.2-1.3); BLOOD UREA NITROGEN 19 mg/dL (7-20); C-REACTIVE PROTEIN 11.3 mg/L (<10.0); CALCIUM 10.2 mg/dL (8.4-10.2); CARBON DIOXIDE 33 mmol/L (22-30); CHLORIDE 98 mmol/L (98-107); GLUCOSE 170 mg/dL (75-110); POTASSIUM 3.3 mmol/L (3.6-5.0); SODIUM 137.7 mmol/L (137-145); TOTAL PROTEIN 7.1 g/dL (6.3-8.2)
[2017-12-29 13:16] LABS: ERYTHROCYTE SEDIMENTATION RATE 30 mm/hr (0-30)
--- NOTE | 2017-12-29 15:24 | ER Document Report ---
ED General - General Chief Complaint: Neck Pain >24hrs old Stated Complaint: NECK PAIN Time Seen by Provider: 12/29/17 07:44 Mode of Arrival: Ambulatory Information source: Patient Notes: Patient is a 52-year-old female comes in with complaint of generalized increased pain throughout the body. Patient has a significant history of lupus rheumatoid arthritis and vasculitis and Sjogren syndrome. Patient is on chronic pain management control with 75 mcg of fentanyl every other day and Dilaudid 4 mg tablets. She also has a list of multiple other medications including gabapentin that she has been on for quite a while. She is here because she is having an acute attack of chronic pain. She states that this pain has increased over the past 3-4 days. She states that from the back of her neck down from the home that has developed there the pain is gotten immeasurably worse. She rates it 9 out of 10 pain. 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 Mondragon the lathe puller and Dr. Purdy is her primary care doctor. Patient does not smoke but is very upset that she hurt so bad. She is also upset and the fact that she had to wait so long to get back to the emergency room. Patient currently is also added on methotrexate 4 pills 1 time a week and prednisone daily of 5 mg she is also an insulin-dependent diabetic. TRAVEL OUTSIDE OF THE [place] IN LAST 30 DAYS: No - HPI Onset: Other - 3 days Onset/Duration: Constant, Worse Quality of pain: denies: No pain Severity: Moderate Pain Level: 3 Exacerbated by: Supine, Sitting, Standing, Movement, Walking Relieved by: Denies Similar symptoms previously: Yes Recently seen / treated by doctor: Yes - Related Data Allergies/Adverse Reactions: amoxicillin [Amoxicillin] Allergy (Severe, Verified 08/20/17 15:08) Anaphylaxis clarithromycin [From Biaxin] Allergy (Severe, Verified 08/20/17 15:08) Severe N&V eszopiclone [From Lunesta] Allergy (Severe, Verified 08/20/17 15:08) Hyperactivity Iodinated Contrast- Oral and IV Dye [IV Dye, Iodine Containing] Allergy (Severe , Verified 08/20/17 15:08) Anaphylaxis lisinopril [Lisinopril] Allergy (Severe, Verified 08/20/17 15:08) Severe cough Penicillins Allergy (Severe, Verified 08/20/17 15:08) Anaphylaxis lamotrigine [From Lamictal] Allergy (Verified 08/20/17 15:08) sulfamethoxazole [From Bactrim] Allergy (Verified 08/20/17 15:08) trimethoprim [From Bactrim] Allergy (Verified 08/20/17 15:08) Past Medical History - Social History Smoking Status: Never Smoker Cigarette use (# per day): No Chew tobacco use (# tins/day): No Smoking Education Provided: No Frequency of alcohol use: None Drug Abuse: None Lives with: Family Family History: Reviewed & Not Pertinent Patient has suicidal ideation: No Patient has homicidal ideation: No - Past Medical History Cardiac Medical History: Reports: Hx Hypertension - Family tells me that her blood pressure is often 60-80 systolic at home Denies: Hx Coronary Artery Disease, Hx Heart Attack Pulmonary Medical History: Denies: Hx Asthma, Hx Bronchitis, Hx COPD, Hx Pneumonia Neurological Medical History: Reports: Hx Cerebrovascular Accident - Pt unsure when; to followup with Dr. Wesley. Denies: Hx Seizures Endocrine Medical History: Reports: Hx Diabetes Mellitus Type 2 Renal/ Medical History: Denies: Hx Peritoneal Dialysis Musculoskeletal Medical History: Reports Hx Arthritis - Rheumatoid arthritis, lupus, vasculitis, Sjogren syndrome Past Surgical History: Reports: Hx Appendectomy, Hx Breast Surgery, Hx Hysterectomy - Immunizations Hx Diphtheria, Pertussis, Tetanus Vaccination: Yes Review of Systems - Review of Systems Constitutional: No symptoms reported EENT: No symptoms reported Cardiovascular: No symptoms reported Respiratory: No symptoms reported Gastrointestinal: No symptoms reported Genitourinary: No symptoms reported Female Genitourinary: No symptoms reported Musculoskeletal: Joint pain, Muscle pain, Muscle stiffness, Neck pain Skin: No symptoms reported Hematologic/Lymphatic: No symptoms reported Neurological/Psychological: No symptoms reported -: Yes All other systems reviewed and negative Physical Exam - Vital signs Vitals: Temp Pulse Resp BP Pulse Ox 97.6 F 95 18 118/97 H 98 12/29/17 05:28 12/29/17 05:28 12/29/17 05:28 12/29/17 05:28 12/29/17 05:28 Interpretation: Normal - Notes Notes: Uncomfortable appearing 52-year-old female. - General General appearance: Alert - HEENT Head: Normocephalic, Atraumatic Eyes: Normal Ears: Normal External canal: Normal Tympanic membrane: Normal Sinus: Normal Nasal: Normal Mouth/Lips: Normal Mucous membranes: Normal, Moist Pharynx: Normal. No: Peritonsillar abscess, Post nasal drainage, Retropharyngeal abscess, Tonsillar hypertrophy, Uvular edema, Potential airway comprom. Neck: Normal, Lymphadenopathy, Supple, Thyromegally. No: Anterior cervical chain, Posterior cervical chain, Carotid bruit, Kernig's, Meningismus, Neck mass , Shotty nodes, Subcutaneous emphysema, Thyroid nodule - Respiratory Respiratory status: No respiratory distress Chest status: Nontender Breath sounds: Normal Chest palpation: Normal - Cardiovascular Rhythm: Regular Heart sounds: Normal auscultation Murmur: No - Abdominal Inspection: Normal Distension: No distension Bowel sounds: Normal Tenderness: Nontender - Back Back: Tender, Vertebra tenderness. No: Normal, Nontender, Deformity/step-off, CVA tenderness, Scars, Scoliosis, Wounds - Extremities General upper extremity: Tender General lower extremity: Tender. No: Edema Hand: Tender. No: Ecchymosis, Instability, Laceration, Nail injury, No evidence of human bite, No evidence of FB, Swelling, Tendon deficit - Neurological Neuro grossly intact: Yes Cognition: Normal Orientation: AAOx4 [place] Coma Scale Eye Opening: Spontaneous [place] Coma Scale Verbal: Oriented [place] Coma Scale Motor: Obeys Commands [place] Coma Scale Total: 15 Speech: Normal Course - Re-evaluation Re-evalutation: 12/29/17 15:27 Patient patient has been difficult to ascertain what is causing her pain. We have done labs and the only abnormality we can really find is a 3.3 potassium. Her thyroid is normal her inflammatory markers are normal and because of patient 's history of chronic pain use of medications in order to work her up I went ahead and ordered her a 2 mg of Dilaudid IV which she refused stated that Dilaudid does not work for her and morphine does not work for her so I offered Toradol and she accepted and she has had good pain relief. Given the labs coming back normal I contacted Dr. Mondragon her informatics nurse specialist and talk to him personally about her wound he knows very well. He states that when she has a pain flare in the office he gets Toradol and Depo-Medrol shot. And states that usually fixes her up. Since patient was on methotrexate weekly and on steroids daily I was hesitant to give her a dose of high steroids until I talk to him. He has indicated is quite all right to do so. I went and talked to patient she is exceptionally happy that we are going this route. Given the findings with Dr. Mondragon I am going to go ahead and discharge patient home with her current medications after giving her Decadron 10 mg IV. 12/29/17 15:33 Just a side note patient main complaint when she walked in the door was this developing pump or mass on her back which was new. Also the lymphadenopathy which she states was new as well. In talking to Dr. 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 and the lymphadenopathy is secondary to Sjogren's - Vital Signs Vital signs: Temp Pulse Resp BP Pulse Ox 97.8 F 84 18 111/72 96 12/29/17 07:46 12/29/17 13:47 12/29/17 13:47 12/29/17 13:47 12/29/17 13:47 - Laboratory Result Diagrams: 12/29/17 12:04 12/29/17 12:04 Laboratory results interpreted by me: 12/29/17 12/29/17 12:04 12:04 Hct 35.1 L RDW 14.7 H Potassium 3.3 L Carbon Dioxide 33 H Glucose 170 H Direct Bilirubin 0.6 H C-Reactive Protein 11.3 H Discharge - Discharge Clinical Impression: Acute exacerbation of chronic low back pain Condition: Stable Disposition: HOME, SELF-CARE Instructions: Chronic Pain Control ([facility]) Additional Instructions: Home and continue your current medications. Keep your appointment with Dr. Mondragon this coming week. Should you have any concerns or problems return to ER for recheck. Referrals: TERRENCE PURDY MD [Primary Care Provider] - Follow up as needed NIKKI MONDRAGON MD [ACTIVE STAFF] - Follow up as needed
[2017-12-29] MEDS ORDERED: DEXAMETHASONE SOD PHOS INJ 10 MG/1 ML VIAL IV ONE (15:35)
[2017-12-29 15:53] VITALS: BP 110/81
== END 2017-12-29 15:53 | disposition home or self-care (01) ==
LOC: ER 05:21
DX: G89.29 Other chronic pain (principal); M54.5 Low back pain; Z88.3 Allergy status to other anti-infective agents; Z88.0 Allergy status to penicillin; E11.9 Type 2 diabetes mellitus without complications
CPT/HCPCS: 99284; 96374; 96375; 36415; 85025; 85652; 86140; 80053; 72070; 76536; J1885; J1170; J1100

== ENCOUNTER → 2018-04-13 | Outpatient (CLI) | payer BC, MEDICARE, OTHER ==
--- NOTE | 2018-04-13 16:15 | RADIOLOGY REPORT (SQ) ---
EXAM DESCRIPTION: BONE SURVEY COMPLETE COMPLETED DATE/TIME: 04/13/2018 3:54 pm REASON FOR STUDY: DISORDER OF BONE M89.9 DISORDER OF BONE, UNSPECIFIED COMPARISON: THORACIC SPINE FILMS 12/29/2017 CHEST FILMS 11/08/2016 CT ABDOMEN pelvis 10/15/2014 TECHNIQUE: Images of the axial and proximal appendicular skeleton are obtained, along with lateral s kull and frontal chest films. LIMITATIONS: None. FINDINGS: AP CHEST: No bony findings. Lungs are clear. No cardiomegaly or pleural effusions. LATERAL SKULL: No worrisome bone lesions. AP BOTH HUMERI: No worrisome bone lesions. TWO-VIEW LUMBAR SPINE: No worrisome bone lesions. TWO-VIEW THORACIC SPINE: No worrisome bone lesions. AP PELVIS: No worrisome bone lesions. AP BOTH FEMURS: No worrisome bone lesions. OTHER: No other significant finding. IMPRESSION: NO WORRISOME BONE LESIONS. TECHNICAL DOCUMENTATION: JOB ID: [id number] [employer]- All Rights Reserved Reading location - IP/workstation name: [email or web address]
== END ==
LOC: RAD 15:14
PROVIDERS: ATTEND Internal Medicine
DX: M89.9 Disorder of bone, unspecified (principal)
CPT/HCPCS: 77075

== ENCOUNTER → 2018-05-28 | Outpatient (CLI) | payer BC, MEDICARE, OTHER ==
[2018-05-28 09:44] LABS: ABSOLUTE EOSINOPHILS # (AUTO) 0.2 10^3/uL (0.0-0.6); ABSOLUTE LYMPHOCYTES (AUTO) 1.7 10^3/uL (0.5-4.7); ABSOLUTE MONOCYTES (AUTO) 0.8 10^3/uL (0.1-1.4); ABSOLUTE NEUT (AUTO) 5.8 10^3/uL (1.7-8.2); BASOPHILS % (AUTO) 0.5 % (0-2); EOSINOPHILS % (AUTO) 2.7 % (0-6); HEMATOCRIT 37.9 % (36.0-47.0); HEMOGLOBIN 13.1 g/dL (12.0-15.5); LYMPHOCYTES % (AUTO) 19.5 % (13-45); MEAN CORPUSCULAR HEMOGLOBIN 28.8 pg (27.0-33.4); MEAN CORPUSCULAR HGB CONC 34.6 g/dL (32.0-36.0); MEAN CORPUSCULAR VOLUME 83 fl (80-97); MONOCYTES % (AUTO) 9.7 % (3-13); PLATELET COUNT 444 10^3/uL (150-450); RED BLOOD COUNT 4.55 10^6/uL (3.72-5.28); RED CELL DISTRIBUTION WIDTH 13.5 % (11.5-14.0); SEGMENTED NEUTROPHILS % (AUTO) 67.6 % (42-78); TOTAL CELLS COUNTED % (AUTO) 100 %; WHITE BLOOD COUNT 8.6 10^3/uL (4.0-10.5)
[2018-05-28 10:00] LABS: ALBUMIN 4.9 g/dL (3.5-5.0); ANION GAP 16 (5-19); BLOOD UREA NITROGEN 28 mg/dL (7-20); CALCIUM 10.2 mg/dL (8.4-10.2); CARBON DIOXIDE 29 mmol/L (22-30); CHLORIDE 96 mmol/L (98-107); GLUCOSE 175 mg/dL (75-110); PHOSPHORUS 5.9 mg/dL (2.5-4.5); POTASSIUM 3.6 mmol/L (3.6-5.0); SODIUM 141.2 mmol/L (137-145)
== END ==
LOC: OD 08:57
PROVIDERS: ATTEND Internal Medicine Nephrology
DX: E11.22 Type 2 diabetes mellitus with diabetic chronic kidney disease (principal); N18.9 Chronic kidney disease, unspecified
CPT/HCPCS: 36415; 80069; 82306; 83970; 85025

== ENCOUNTER → 2018-07-09 | Outpatient (CLI) | payer BC, MEDICARE, OTHER ==
[2018-07-09 16:55] LABS: ABSOLUTE BASOPHILS # (AUTO) 0.1 10^3/uL (0.0-0.2); ABSOLUTE EOSINOPHILS # (AUTO) 0.3 10^3/uL (0.0-0.6); ABSOLUTE LYMPHOCYTES (AUTO) 1.6 10^3/uL (0.5-4.7); ABSOLUTE MONOCYTES (AUTO) 0.4 10^3/uL (0.1-1.4); ABSOLUTE NEUT (AUTO) 5.5 10^3/uL (1.7-8.2); BASOPHILS % (AUTO) 0.7 % (0-2); EOSINOPHILS % (AUTO) 3.9 % (0-6); HEMATOCRIT 36.5 % (36.0-47.0); HEMOGLOBIN 12.6 g/dL (12.0-15.5); LYMPHOCYTES % (AUTO) 19.8 % (13-45); MEAN CORPUSCULAR HEMOGLOBIN 28.9 pg (27.0-33.4); MEAN CORPUSCULAR HGB CONC 34.5 g/dL (32.0-36.0); MEAN CORPUSCULAR VOLUME 84 fl (80-97); MONOCYTES % (AUTO) 5.6 % (3-13); PLATELET COUNT 405 10^3/uL (150-450); RED BLOOD COUNT 4.36 10^6/uL (3.72-5.28); RED CELL DISTRIBUTION WIDTH 13.8 % (11.5-14.0); TOTAL CELLS COUNTED % (AUTO) 100 %; WHITE BLOOD COUNT 7.9 10^3/uL (4.0-10.5)
[2018-07-09 17:25] LABS: ALANINE AMINOTRANSFERASE 36 U/L (9-52); ALBUMIN 4.1 g/dL (3.5-5.0); ALKALINE PHOSPHATASE 83 U/L (38-126); ANION GAP 9 (5-19); ASPARTATE AMINO TRANSFERASE 33 U/L (14-36); BILIRUBIN,DIRECT 0.3 mg/dL (0.0-0.4); BILIRUBIN,TOTAL 0.3 mg/dL (0.2-1.3); BLOOD UREA NITROGEN 11 mg/dL (7-20); CALCIUM 10.3 mg/dL (8.4-10.2); CARBON DIOXIDE 31 mmol/L (22-30); CHLORIDE 102 mmol/L (98-107); GLUCOSE 149 mg/dL (75-110); POTASSIUM 4.4 mmol/L (3.6-5.0); SODIUM 142.3 mmol/L (137-145); TOTAL PROTEIN 6.9 g/dL (6.3-8.2)
[2018-07-09 18:09] LABS: ANION GAP 9 (5-19); BLOOD UREA NITROGEN 11 mg/dL (7-20); CALCIUM 10.3 mg/dL (8.4-10.2); CARBON DIOXIDE 31 mmol/L (22-30); CHLORIDE 102 mmol/L (98-107); GLUCOSE 149 mg/dL (75-110); POTASSIUM 4.4 mmol/L (3.6-5.0); SODIUM 142.3 mmol/L (137-145)
[2018-07-09 18:24] LABS: PHOSPHORUS 4.1 mg/dL (2.5-4.5)
== END ==
LOC: OD 16:07
PROVIDERS: ATTEND Internal Medicine Nephrology
DX: I12.9 Hypertensive chronic kidney disease with stage 1 through stage 4 chronic kidney disease, or unspecified chronic kidney disease (principal); N18.3 Chronic kidney disease, stage 3 (moderate); F33.1 Major depressive disorder, recurrent, moderate; F40.00 Agoraphobia, unspecified; F41.0 Panic disorder [episodic paroxysmal anxiety]; F51.01 Primary insomnia; Z79.899 Other long term (current) drug therapy
CPT/HCPCS: 36415; 80048; 80053; 82306; 84100; 84443; 85025

== ENCOUNTER 2018-08-12 21:00 | Emergency (ER) | payer MEDICARE, BC ==
[2018-08-12 21:40] VITALS: BP 142/80
== END 2018-08-13 00:46 | disposition left against medical advice (07) ==
LOC: ER 21:00
DX: Z53.21 Procedure and treatment not carried out due to patient leaving prior to being seen by health care provider (principal)

== ENCOUNTER 2018-08-30 08:49 | Emergency (ER) | payer MEDICARE, BC, OTHER ==
[2018-08-30 08:58] VITALS: BP 126/83
--- NOTE | 2018-08-30 10:24 | ER Document Report ---
HPI - HPI Patient complains to provider of: Rash Time Seen by Provider: 08/30/18 09:17 Pain Level: 3 Context: Patient is a 53-year-old female presents to the emergency department for rash to bilateral anterior AC area for the last week and a half. Patient states this rash itches and is also painful. Patient states she was at her pain management doctor on Friday and was told to put hydrocortisone on it. Patient states she is been putting hydrocortisone on it without any relief. Patient is denying any exposure to poison reinaldo, poison oak, new lotions, detergents, shampoos, any new exposures. Patient is denying any respiratory distress, URI symptoms, fever, vomiting, diarrhea. Past medical history: Rheumatoid arthritis, vasculitis, Sojourn, diabetes, kidney failure Medications: Patient is unknown of medication names Allergies: Penicillin - CONSTITUTIONAL Constitutional: REPORTS: Fever - REPRODUCTIVE Reproductive: DENIES: : Past Medical History - General Information source: Patient - Social History Smoking Status: Former Smoker Frequency of alcohol use: None Drug Abuse: Other Family History: Reviewed & Not Pertinent Patient has suicidal ideation: No Patient has homicidal ideation: No - Past Medical History Cardiac Medical History: Reports: Hx Hypertension - Family tells me that her blood pressure is often 60-80 systolic at home Denies: Hx Coronary Artery Disease, Hx Heart Attack Pulmonary Medical History: Denies: Hx Asthma, Hx Bronchitis, Hx COPD, Hx Pneumonia Neurological Medical History: Reports: Hx Cerebrovascular Accident - Pt unsure when; to followup with Dr. Wesley. Denies: Hx Seizures Endocrine Medical History: Reports: Hx Diabetes Mellitus Type 2 Renal/ Medical History: Denies: Hx Peritoneal Dialysis Musculoskeletal Medical History: Reports Hx Arthritis - Rheumatoid arthritis, lupus, vasculitis, Sjogren syndrome Past Surgical History: Reports: Hx Appendectomy, Hx Breast Surgery, Hx Cholecystectomy, Hx Hysterectomy - Immunizations Hx Diphtheria, Pertussis, Tetanus Vaccination: Yes Vertical Provider Document - CONSTITUTIONAL Agree With Documented VS: Yes Notes: GENERAL: Alert, interacts well. No acute distress. HEAD: Normocephalic, atraumatic. EYES: Pupils equal, round, and reactive to light. Extraocular movements intact. ENT: Oral mucosa moist, tongue midline. NECK: Full range of motion. Supple. Trachea midline. LUNGS: Clear to auscultation bilaterally, no wheezes, rales, or rhonchi. No respiratory distress. HEART: Regular rate and rhythm. No murmur ABDOMEN: Soft, non-tender. Non-distended. Bowel sounds present in all 4 quadrants. EXTREMITIES: Moves all 4 extremities spontaneously. No edema, normal radial and dorsalis pedis pulses bilaterally. No cyanosis. BACK: no cervical, thoracic, lumbar midline tenderness. No saddle anesthesia, normal distal neurovascular exam. NEUROLOGICAL: Alert and oriented x3. Normal speech. cranial nerves II through XII grossly intact PSYCH: Normal affect, normal mood. SKIN: Warm, dry, normal turgor. Vesicular type lesion noted anterior aspect of bilateral AC regions. Some are excoriated and scabbed. - INFECTION CONTROL TRAVEL OUTSIDE OF THE [place] IN LAST 30 DAYS: No Course - Re-evaluation Re-evalutation: 08/30/18 10:22 Discussed this case with my attending Dr. Gonzales who examined the pt. She is rec ommending placing the pt. on topical antibiotic treatment. Discussed this with patient at length. Discussed also following up with primary care provider for dermatology referral. Patient stable for discharge. - Vital Signs Vital signs: Temp Pulse Resp BP Pulse Ox 98.1 F 100 18 126/83 H 99 08/30/18 08:56 08/30/18 10:10 08/30/18 08:56 08/30/18 08:56 08/30/18 08:56 Discharge - Discharge Clinical Impression: Rash Condition: Stable Disposition: HOME, SELF-CARE Additional Instructions: You have been seen and treated in the emergency department for rash to bilateral arm. I am placing you on an antibiotic ointment. Please use it as prescribed. Please also follow-up with your primary care provider for a dermatology referral. Please return to the emergency room for any other concerns. Prescriptions: Mupirocin [Bactroban 2% Ointment 22 gm] 1 applic TP TID #1 tube Referrals: TERRENCE SAMS MD [Primary Care Provider] - Follow up as needed
== END 2018-08-30 10:44 | disposition home or self-care (01) ==
LOC: ER 08:49
DX: R21 Rash and other nonspecific skin eruption (principal); I10 Essential (primary) hypertension; E11.9 Type 2 diabetes mellitus without complications; Z90.49 Acquired absence of other specified parts of digestive tract; Z90.710 Acquired absence of both cervix and uterus
CPT/HCPCS: 99282

== ENCOUNTER → 2018-10-05 | Outpatient (CLI) | payer BC, MEDICARE, OTHER ==
[2018-10-05 17:38] LABS: ALBUMIN 4.6 g/dL (3.5-5.0); ANION GAP 12 (5-19); BLOOD UREA NITROGEN 17 mg/dL (7-20); CALCIUM 10.1 mg/dL (8.4-10.2); CARBON DIOXIDE 27 mmol/L (22-30); CHLORIDE 99 mmol/L (98-107); GLUCOSE 252 mg/dL (75-110); PHOSPHORUS 3.7 mg/dL (2.5-4.5); POTASSIUM 3.9 mmol/L (3.6-5.0); SODIUM 138.3 mmol/L (137-145)
[2018-10-07 12:00] LABS: APPEARANCE,URINE CLEAR; BILIRUBIN,URINE NEGATIVE (NEGATIVE); COLOR,URINE YELLOW; GLUCOSE, URINE >=500 mg/dL (NEGATIVE); KETONES,URINE NEGATIVE (NEGATIVE); LEUKOCYTE ESTERASE,URINE NEGATIVE (NEGATIVE); NITRITE,URINE NEGATIVE (NEGATIVE); PROTEIN,URINE NEGATIVE (NEGATIVE); URINE SPECIFIC GRAVITY 1.025; UROBILINOGEN,URINE NEGATIVE mg/dL (<2.0)
[2018-10-08 11:37] LABS: CREATININE URINE 121.2 mg/dL (Not Estab.); MICROALBUMIN URINE 20.7 ug/mL (Not Estab.)
== END ==
LOC: OD 16:21
PROVIDERS: ATTEND Internal Medicine Nephrology
DX: E11.22 Type 2 diabetes mellitus with diabetic chronic kidney disease (principal); E83.30 Disorder of phosphorus metabolism, unspecified; N19 Unspecified kidney failure; M06.9 Rheumatoid arthritis, unspecified
CPT/HCPCS: 36415; 80069; 81001; 82043; 82306; 82570; 83970

== ENCOUNTER → 2019-02-15 | Outpatient (CLI) | payer BC, MEDICARE, OTHER ==
[2019-02-15 10:48] LABS: APPEARANCE,URINE CLEAR; BILIRUBIN,URINE NEGATIVE (NEGATIVE); COLOR,URINE YELLOW; GLUCOSE, URINE >=500 mg/dL (NEGATIVE); KETONES,URINE NEGATIVE (NEGATIVE); LEUKOCYTE ESTERASE,URINE NEGATIVE (NEGATIVE); NITRITE,URINE NEGATIVE (NEGATIVE); PROTEIN,URINE NEGATIVE (NEGATIVE); URINE SPECIFIC GRAVITY 1.026; UROBILINOGEN,URINE NEGATIVE mg/dL (<2.0)
[2019-02-15 10:57] LABS: ALBUMIN 4.4 g/dL (3.5-5.0); ANION GAP 14 (5-19); BLOOD UREA NITROGEN 13 mg/dL (7-20); CALCIUM 9.9 mg/dL (8.4-10.2); CARBON DIOXIDE 25 mmol/L (22-30); CHLORIDE 100 mmol/L (98-107); GLUCOSE 298 mg/dL (75-110); PHOSPHORUS 4.8 mg/dL (2.5-4.5); POTASSIUM 4.2 mmol/L (3.6-5.0)
[2019-02-16 09:37] LABS: CREATININE URINE 93.8 mg/dL (Not Estab.); MICROALBUMIN URINE 12.7 ug/mL (Not Estab.)
== END ==
LOC: OD 10:03
PROVIDERS: ATTEND Internal Medicine Nephrology
DX: E11.9 Type 2 diabetes mellitus without complications (principal); E83.30 Disorder of phosphorus metabolism, unspecified; N19 Unspecified kidney failure; M06.9 Rheumatoid arthritis, unspecified; N39.0 Urinary tract infection, site not specified
CPT/HCPCS: 36415; 80069; 81001; 82043; 82306; 82570; 83970; 87086

== ENCOUNTER 2019-03-01 12:15 | Emergency (ER) | payer BC, MEDICARE ==
[2019-03-01 12:41] VITALS: BP 110/73
--- NOTE | 2019-03-01 13:06 | ER Document Report ---
ED Medical Screen (RME) - General Chief Complaint: Abdominal Pain Stated Complaint: LEFT SIDE RIB PAIN/DIFFICULTY BREATHING Time Seen by Provider: 03/01/19 13:02 Primary Care Provider: MEDINA QUACH MD [Primary Care Provider] - Follow up as needed Mode of Arrival: Wheelchair Information source: Patient Notes: 53-year-old female presents to ED for complaint of abdominal pain tenderness to the left side of her abdomen lower ribs. She states she bent over in the bed and felt like she pulled or injured something. She states the pain is getting progressively worse since then. She does have extreme tenderness to anywhere on the left side of her abdomen and flank area. She does have diabetes as well as decreased kidney function. She is seen in the drywall applicator for this. She also has a history of high blood pressure. Patient does have hyperactive bowel sounds with extreme tenderness to the abdomen. I have greeted and performed a rapid initial assessment of this patient. A comprehensive ED assessment and evaluation of the patient, analysis of test results and completion of medical decision making process will be conducted by an additional ED providers. TRAVEL OUTSIDE OF THE [place] IN LAST 30 DAYS: No - Related Data Allergies/Adverse Reactions: amoxicillin [Amoxicillin] Allergy (Severe, Verified 08/30/18 08:51) Anaphylaxis clarithromycin [From Biaxin] Allergy (Severe, Verified 08/30/18 08:51) Severe N&V eszopiclone [From Lunesta] Allergy (Severe, Verified 08/30/18 08:51) Hyperactivity Iodinated Contrast Media [IV Dye, Iodine Containing] Allergy (Severe, Verified 08/30/18 08:51) Anaphylaxis lisinopril [Lisinopril] Allergy (Severe, Verified 08/30/18 08:51) Severe cough Penicillins Allergy (Severe, Verified 08/30/18 08:51) Anaphylaxis lamotrigine [From Lamictal] Allergy (Verified 08/30/18 08:51) sulfamethoxazole [From Bactrim] Allergy (Verified 08/30/18 08:51) trimethoprim [From Bactrim] Allergy (Verified 08/30/18 08:51) Past Medical History - Past Medical History Cardiac Medical History: Reports: Hx Hypertension - Family tells me that her blood pressure is often 60-80 systolic at home Denies: Hx Coronary Artery Disease, Hx Heart Attack Pulmonary Medical History: Denies: Hx Asthma, Hx Bronchitis, Hx COPD, Hx Pneumonia Neurological Medical History: Reports: Hx Cerebrovascular Accident - Pt unsure when; to followup with Dr. Wesley. Denies: Hx Seizures Endocrine Medical History: Reports: Hx Diabetes Mellitus Type 2 Renal/ Medical History: Denies: Hx Peritoneal Dialysis Musculoskeltal Medical History: Reports Hx Arthritis - Rheumatoid arthritis, lupus, vasculitis, Sjogren syndrome Past Surgical History: Reports: Hx Appendectomy, Hx Breast Surgery, Hx Cholecystectomy, Hx Hysterectomy - Immunizations Hx Diphtheria, Pertussis, Tetanus Vaccination: Yes Physical Exam - Vital signs Vitals: Temp Pulse Resp BP Pulse Ox 97.7 F 95 22 H 110/73 96 03/01/19 12:40 03/01/19 12:40 03/01/19 12:40 03/01/19 12:40 03/01/19 12:40 Course - Vital Signs Vital signs: Temp Pulse Resp BP Pulse Ox 97.7 F 95 22 H 110/73 96 03/01/19 12:40 03/01/19 12:40 03/01/19 12:40 03/01/19 12:40 03/01/19 12:40 Doctor's Discharge - Discharge Referrals: MEDINA QUACH MD [Primary Care Provider] - Follow up as needed
[2019-03-01 13:32] LABS: ABSOLUTE BASOPHILS # (AUTO) 0.1 10^3/uL (0.0-0.2); ABSOLUTE EOSINOPHILS # (AUTO) 0.2 10^3/uL (0.0-0.6); ABSOLUTE LYMPHOCYTES (AUTO) 1.9 10^3/uL (0.5-4.7); ABSOLUTE MONOCYTES (AUTO) 0.9 10^3/uL (0.1-1.4); ABSOLUTE NEUT (AUTO) 13.5 10^3/uL (1.7-8.2); BASOPHILS % (AUTO) 0.6 % (0-2); EOSINOPHILS % (AUTO) 1.4 % (0-6); HEMATOCRIT 38.3 % (36.0-47.0); HEMOGLOBIN 12.8 g/dL (12.0-15.5); LYMPHOCYTES % (AUTO) 11.6 % (13-45); MEAN CORPUSCULAR HEMOGLOBIN 29.4 pg (27.0-33.4); MEAN CORPUSCULAR HGB CONC 33.4 g/dL (32.0-36.0); MEAN CORPUSCULAR VOLUME 88 fl (80-97); MONOCYTES % (AUTO) 5.3 % (3-13); PLATELET COUNT 463 10^3/uL (150-450); RED BLOOD COUNT 4.35 10^6/uL (3.72-5.28); RED CELL DISTRIBUTION WIDTH 13.9 % (11.5-14.0); SEGMENTED NEUTROPHILS % (AUTO) 81.1 % (42-78); TOTAL CELLS COUNTED % (AUTO) 100 %; WHITE BLOOD COUNT 16.7 10^3/uL (4.0-10.5)
[2019-03-01 13:51] LABS: ALBUMIN 4.5 g/dL (3.5-5.0); ALKALINE PHOSPHATASE 123 U/L (38-126); ANION GAP 12 (5-19); ASPARTATE AMINO TRANSFERASE 23 U/L (14-36); BILIRUBIN,DIRECT 0.2 mg/dL (0.0-0.4); BILIRUBIN,TOTAL 0.4 mg/dL (0.2-1.3); BLOOD UREA NITROGEN 19 mg/dL (7-20); CALCIUM 9.9 mg/dL (8.4-10.2); CARBON DIOXIDE 27 mmol/L (22-30); CHLORIDE 102 mmol/L (98-107); GLUCOSE 230 mg/dL (75-110); TOTAL PROTEIN 7.2 g/dL (6.3-8.2)
--- NOTE | 2019-03-01 14:15 | RADIOLOGY REPORT (SQ) ---
EXAM DESCRIPTION: ACUTE ABDOMEN SERIES COMPLETED DATE/TIME: 03/01/2019 2:03 pm REASON FOR STUDY: Left abdominal pain with shortness of breath COMPARISON: None. NUMBER OF VIEWS: Three views. TECHNIQUE: Frontal chest, supine abdomen and upright/decubitus abdomen radiographic images acquired. LIMITATIONS: None. FINDINGS: CHEST: Lungs clear of infiltrates. FREE AIR: None. No abnormal gas collections. BOWEL GAS PATTERN: Nonobstructive pattern. No dilated loops or air fluid levels. Prominent stool thr oughout the colon. CALCIFICATIONS: No suspicious calcifications. HARDWARE: Surgical clips. SOFT TISSUES: No gross mass or suggestion of organomegaly. BONES: No acute fracture. No worrisome bone lesions. OTHER: No other significant finding. IMPRESSION: NO RADIOGRAPHIC EVIDENCE FOR ACUTE ABDOMINAL DISEASE. TECHNICAL DOCUMENTATION: JOB ID: [id number] [employer]- All Rights Reserved Reading location - IP/workstation name: [email or web address]
[2019-03-01] MEDS ORDERED: OXYCODONE HCL IR 5 MG TABLET PO ONE (15:38)
--- NOTE | 2019-03-01 15:39 | ER Document Report ---
ED General - General Chief Complaint: Abdominal Pain Stated Complaint: LEFT SIDE RIB PAIN/DIFFICULTY BREATHING Time Seen by Provider: 03/01/19 13:02 Primary Care Provider: MEDINA QUACH MD [ACTIVE STAFF] - Follow up in 3-5 days Mode of Arrival: Wheelchair Information source: Patient Notes: This 53-year-old female presents with complaints of left-sided rib pain left upper quad abdominal pain. She reports that she was laying in bed and leaned over to get something off the floor and felt something pop. She reports she is been in bed for the past 4 days. She reports it feels difficult to take a deep breath. No complaints of fever vomiting diarrhea. Reports she takes oxycodone on a daily basis but did not take it today because she was coming to the emerg ency department. She is asking for something for pain. TRAVEL OUTSIDE OF THE [place] IN LAST 30 DAYS: No - HPI Onset: Other Onset/Duration: Persistent Quality of pain: Achy, Pressure, Throbbing Associated symptoms: None Exacerbated by: Movement Relieved by: Denies Similar symptoms previously: No Recently seen / treated by doctor: No - Related Data Allergies/Adverse Reactions: amoxicillin [Amoxicillin] Allergy (Severe, Verified 08/30/18 08:51) Anaphylaxis clarithromycin [From Biaxin] Allergy (Severe, Verified 08/30/18 08:51) Severe N&V eszopiclone [From Lunesta] Allergy (Severe, Verified 08/30/18 08:51) Hyperactivity Iodinated Contrast Media [IV Dye, Iodine Containing] Allergy (Severe, Verified 08/30/18 08:51) Anaphylaxis lisinopril [Lisinopril] Allergy (Severe, Verified 08/30/18 08:51) Severe cough Penicillins Allergy (Severe, Verified 08/30/18 08:51) Anaphylaxis lamotrigine [From Lamictal] Allergy (Verified 08/30/18 08:51) sulfamethoxazole [From Bactrim] Allergy (Verified 08/30/18 08:51) trimethoprim [From Bactrim] Allergy (Verified 08/30/18 08:51) Home Medications: Gabapentin, Methotrexate, Oxcarbazepine, Simvastatin, Aspirin, Prednison, Hydrocyxychloroquine, Folic Acid, Cevimeline, Vitamin D2, Quetiapine, Hydroxyzine, Hydromorphone, Orencia, Minova. Past Medical History - General Information source: Patient - Social History Smoking Status: Unknown if Ever Smoked Frequency of alcohol use: None Drug Abuse: None Occupation: Disabled Lives with: Family Family History: Reviewed & Not Pertinent Patient has suicidal ideation: No Patient has homicidal ideation: No - Medical History Medical History: Other - Lupus - Past Medical History Cardiac Medical History: Reports: Hx Hypertension - Family tells me that her blood pressure is often 60-80 systolic at home Denies: Hx Coronary Artery Disease, Hx Heart Attack Pulmonary Medical History: Denies: Hx Asthma, Hx Bronchitis, Hx COPD, Hx Pneumonia Neurological Medical History: Reports: Hx Cerebrovascular Accident - Pt unsure when; to followup with Dr. Wesley. Denies: Hx Seizures Endocrine Medical History: Reports: Hx Diabetes Mellitus Type 2 Renal/ Medical History: Denies: Hx Peritoneal Dialysis Musculoskeletal Medical History: Reports Hx Arthritis - Rheumatoid arthritis, lupus, vasculitis, Sjogren syndrome Past Surgical History: Reports: Hx Appendectomy, Hx Breast Surgery, Hx Cholecystectomy, Hx Hysterectomy - Immunizations Hx Diphtheria, Pertussis, Tetanus Vaccination: Yes Review of Systems - Review of Systems Notes: Review HPI for review of systems., All other systems negative Physical Exam - Vital signs Vitals: Temp Pulse Resp BP Pulse Ox 97.7 F 95 22 H 110/73 96 03/01/19 12:40 03/01/19 12:40 03/01/19 12:40 03/01/19 12:40 03/01/19 12:40 - General General appearance: Alert, Anxious In distress: None - Patient winces yells out pain with touch or movement - HEENT Head: Normocephalic Eyes: Normal Conjunctiva: Normal Mucous membranes: Normal Pharynx: Normal Neck: Supple. No: Lymphadenopathy - Respiratory Respiratory status: No respiratory distress Chest status: Tender - Left lower anterior chest wall tender to palpate respiratory rate even unlabored Breath sounds: Normal Chest palpation: Normal - Cardiovascular Rhythm: Regular Heart sounds: Normal auscultation - Abdominal Inspection: Normal Distension: No distension Bowel sounds: Normal Tenderness: Tender Organomegaly: No organomegaly Adult front & back diagram: 1 - Reports left upper quad abdominal pain tender to touch - Extremities General upper extremity: Normal ROM General lower extremity: Normal ROM - Neurological Neuro grossly intact: Yes Cognition: Normal Orientation: AAOx4 [place] Coma Scale Eye Opening: Spontaneous [place] Coma Scale Verbal: Oriented [place] Coma Scale Motor: Obeys Commands [place] Coma Scale Total: 15 Speech: Normal - Psychological Associated symptoms: Normal affect, Normal mood - Skin Skin Temperature: Warm Skin Moisture: Dry Skin Color: Normal Course - Re-evaluation Re-evalutation: 03/01/19 15:43 53-year-old female presents emergency department with complaints of left lateral rib pain left upper quad pain for the past 4 days. Reports she was laying in bed been over to get something and felt a pop. Reports she is had pain since that time. She reports she did not take her pain medication prior to arrival and she is demanding something for pain now. Patient reports she is currently taking pain medication for rheumatoid arthritis vasculitis since the Sjgren's syndrome. Patient also has a history of chronic kidney disease diabetes. Lab tests were ordered x-ray abdominal ultrasound. 03/01/19 16:48 After patient received her pain medication she reports she wanted to leave. The nurse reported that when she gave her the pain medication she said that was nothing that she takes much more at home. I advised the patient that her exam has not been completed that she is very tender in her abdomen and really needs ultrasound. She is not interested. I also instructed her on elevated white count I will not sure where that is coming from she reports is probably from her urine. She denies fever vomiting. The patient has decided not to proceed with further recommended testing or treatment to determine the cause of their symptoms. The risks and alternatives to the recommendations were discussed and the patient was understanding. The patient appears clinically to have the capacity to make this decision. Patient was instructed that he/she could return to the emergency department at any time to complete the testing treatment. Acute Abdomen Series 03/01/19 13:06 IMPRESSION: NO RADIOGRAPHIC EVIDENCE FOR ACUTE ABDOMINAL DISEASE. 03/01/19 13:17 03/01/19 13:17 MCV 88 fl (80-97) 03/01/19 13:17 MCH 29.4 pg (27.0-33.4) 03/01/19 13:17 MCHC 33.4 g/dL (32.0-36.0) 03/01/19 13:17 RDW 13.9 % (11.5-14.0) 03/01/19 13:17 Seg Neutrophils % 81.1 % (42-78) H 03/01/19 13:17 Chloride 102 mmol/L (98-107) 03/01/19 13:17 Carbon Dioxide 27 mmol/L (22-30) 03/01/19 13:17 Anion Gap 12 (5-19) 03/01/19 13:17 Est GFR ( Amer) > 60 (>60) 03/01/19 13:17 Glucose 230 mg/dL (75-110) H 03/01/19 13:17 Calcium 9.9 mg/dL (8.4-10.2) 03/01/19 13:17 Total Bilirubin 0.4 mg/dL (0.2-1.3) 03/01/19 13:17 AST 23 U/L (14-36) 03/01/19 13:17 Alkaline Phosphatase 123 U/L (38-126) 03/01/19 13:17 Total Protein 7.2 g/dL (6.3-8.2) 03/01/19 13:17 Albumin 4.5 g/dL (3.5-5.0) 03/01/19 13:17 03/01/19 16:02 Dictation of this chart was performed using voice recognition software; therefore, there may be some unintended grammatical errors. 03/01/19 21:12 Acute Abdomen Series 03/01/19 13:06 IMPRESSION: NO RADIOGRAPHIC EVIDENCE FOR ACUTE ABDOMINAL DISEASE. Ribs X-Ray 03/01/19 14:54 IMPRESSION: NO ACUTE DISPLACED RIB FRACTURE. - Vital Signs Vital signs: Temp Pulse Resp BP Pulse Ox 97.7 F 95 22 H 110/73 96 03/01/19 12:40 03/01/19 12:40 03/01/19 12:40 03/01/19 12:40 03/01/19 12:40 - Laboratory Result Diagrams: 03/01/19 13:17 03/01/19 13:17 Laboratory results interpreted by me: 03/01/19 03/01/19 03/01/19 13:17 13:17 16:10 WBC 16.7 H Plt Count 463 H Lymph % (Auto) 11.6 L Absolute Neuts (auto) 13.5 H Seg Neutrophils % 81.1 H Glucose 230 H Urine Protein 30 H Urine Glucose (UA) 150 H Leukocyte Esterase Rfl SMALL H - Diagnostic Test Radiology reviewed: Image reviewed, Reports reviewed Discharge - Discharge Clinical Impression: Left sided abdominal pain Condition: Stable Disposition: AGAINST MEDICAL ADVICE Instructions: Abdominal Pain ([facility]) Additional Instructions: *You have been evaluated for abdominal pain, left rib pain You have decided to leave AGAINST MEDICAL ADVICE your test have not been completed You have an elevated white count. It is very important for you to follow-up with your primary care provider within the next 3 days. *Return to ED for worsening condition, changes, needs *Return to ED if not better in 24 hours Referrals: MEDINA QUACH MD [ACTIVE STAFF] - Follow up in 3-5 days
--- NOTE | 2019-03-01 15:52 | RADIOLOGY REPORT (SQ) ---
EXAM DESCRIPTION: RIBS LEFT W/O PA CHEST COMPLETED DATE/TIME: 03/01/2019 3:37 pm REASON FOR STUDY: pain COMPARISON: None. NUMBER OF VIEWS: Two views. TECHNIQUE: Images acquired of the left ribs in the area of focal concern. LIMITATIONS: None. FINDINGS: RIBS: No acute displaced fracture. No worrisome bone lesions. LUNGS: Limited exam. No obvious pneumothorax. No pleural effusion. OTHER: No other significant finding. IMPRESSION: NO ACUTE DISPLACED RIB FRACTURE. COMMENT: SITE OF TRAUMA/COMPLAINT MARKED/STAMP COMPLETED: NO. TECHNICAL DOCUMENTATION: JOB ID: [id number] [employer]- All Rights Reserved Reading location - IP/workstation name: [email or web address]
[2019-03-01 16:34] LABS: APPEARANCE,URINE CLEAR; BILIRUBIN,URINE NEGATIVE (NEGATIVE); COLOR,URINE YELLOW; GLUCOSE, URINE 150 mg/dL (NEGATIVE); KETONES,URINE NEGATIVE (NEGATIVE); PROTEIN,URINE 30 mg/dL (NEGATIVE); URINE SPECIFIC GRAVITY 1.024; UROBILINOGEN,URINE NEGATIVE mg/dL (<2.0)
== END 2019-03-01 16:48 | disposition left against medical advice (07) ==
LOC: ER 12:15
DX: R07.81 Pleurodynia (principal); R10.12 Left upper quadrant pain; R10.812 Left upper quadrant abdominal tenderness; E11.9 Type 2 diabetes mellitus without complications; M06.9 Rheumatoid arthritis, unspecified; M35.00 Sjogren syndrome, unspecified; I77.6 Arteritis, unspecified; Z79.52 Long term (current) use of systemic steroids; Z79.891 Long term (current) use of opiate analgesic; Z79.899 Other long term (current) drug therapy; Z79.82 Long term (current) use of aspirin; Z87.892 Personal history of anaphylaxis; Z88.0 Allergy status to penicillin; Z91.041 Radiographic dye allergy status; Z88.1 Allergy status to other antibiotic agents; Z88.8 Allergy status to other drugs, medicaments and biological substances; Z90.49 Acquired absence of other specified parts of digestive tract; Z53.20 Procedure and treatment not carried out because of patient's decision for unspecified reasons
CPT/HCPCS: 36415; 74022; 80053; 81001; 85025; 99284

== ENCOUNTER 2019-04-12 09:42 | Day surgery (SDC) | payer BC, MEDICARE, OTHER ==
[~2019-04-12 09:42] MED LIST: PROPOFOL INJ 200 MG/20 ML VIAL IV ONE
[2019-04-12 11:19] VITALS: BP 138/68
--- NOTE | 2019-04-12 11:41 | Operative Report ---
Operative Report DATE OF SURGERY: 04/12/19 Operative Report: The risks, benefits and alternatives of the procedure including the risk of bleeding, perforation requiring surgery have been explained to the patient in detail and informed consent has been obtained. Patient is taken back to the endoscopy suite and placed in a left, lateral decubital position. Timeout was called. Propofol medication is administered. Rectal examination is done which did not reveal any masses, tears or fissures. An Olympus videoscope was introduced into the patient's rectum. Scope was then carefully advanced all the way to the cecum. The cecum was identified by the usual anatomical landmarks including the ileocecal valve as well as the appendiceal office. Photodocumentation is obtained. Scope was then sequentially pulled back via the various segments of the colon including the ascending colon,, transverse colon, splenic flexure, descending colon and finding to the rectosigmoid portions of the colon. Retroflexion maneuver is performed. The risks benefits and alternatives of the procedure explained to the patient in detail and informed consent is obtained.A GIF Olympus video scope was inserted into the patient's mouth and hypopharynx ,the esophagus is identified intubated and insufflated, the scope was then advanced through the esophagus stomach and duodenum, retroflexion maneuver is done, the esophagus stomach and first and second portions of the duodenum examined. PREOPERATIVE DIAGNOSIS: Rectal bleeding. Epigastric pain rule out peptic ulcer disease POSTOPERATIVE DIAGNOSIS: Gastritis status post biopsy rule out Helicobacter pylori. Right-sided colon inflammation status post biopsy. Diverticulosis. Internal hemorrhoids. No evidence of diverticulitis OPERATION: Colonoscopy with biopsy. EGD with biopsy SURGEON: MARK PERSON ANESTHESIA: LMAC TISSUE REMOVED OR ALTERED: As noted above. COMPLICATIONS: None. ESTIMATED BLOOD LOSS: None. INTRAOPERATIVE FINDINGS: As noted above. PROCEDURE: Patient tolerated the procedure well. No immediate postprocedure complications are noted. Patient is discharged in good condition. Discharge date 04/12/2019. Discharge diet: Regular. Discharge activity: Regular. 2 to 3-week follow-up to discuss findings. Patient is instructed to call the office or proceed to the emergency room should there be any further problems or questions. Wait on the pathology.
== END 2019-04-12 11:27 | disposition home or self-care (01) ==
LOC: END 09:42
PROVIDERS: ATTEND Internal Medicine Gastroenterology
DX: K57.30 Diverticulosis of large intestine without perforation or abscess without bleeding (principal); K52.9 Noninfective gastroenteritis and colitis, unspecified; K64.8 Other hemorrhoids; K29.50 Unspecified chronic gastritis without bleeding; K62.5 Hemorrhage of anus and rectum; I10 Essential (primary) hypertension; I25.10 Atherosclerotic heart disease of native coronary artery without angina pectoris; M06.9 Rheumatoid arthritis, unspecified; D64.9 Anemia, unspecified; Z88.0 Allergy status to penicillin; Z88.8 Allergy status to other drugs, medicaments and biological substances; R06.02 Shortness of breath; I49.9 Cardiac arrhythmia, unspecified; E11.9 Type 2 diabetes mellitus without complications; E66.9 Obesity, unspecified; Z91.041 Radiographic dye allergy status; M32.9 Systemic lupus erythematosus, unspecified; E78.00 Pure hypercholesterolemia, unspecified
CPT/HCPCS: 43239; 45380; 82962; 88305 ×2; 00813; J2704; 813

== ENCOUNTER 2019-05-19 11:36 | Emergency (ER) | payer BC, MEDICARE, OTHER ==
--- NOTE | 2019-05-19 12:03 | ER Document Report ---
ED Medical Screen (RME) - General Stated Complaint: BREATHING DIFFICULTY/CHEST PAIN/OVERALL PAIN Time Seen by Provider: 05/19/19 11:58 Primary Care Provider: TERRENCE SAMS MD [Primary Care Provider] - Follow up as needed Mode of Arrival: Wheelchair Information source: Patient, Relative Notes: 54-year-old female with history of asthma arthritis sjorgens, vasculitis presents with fever and difficulty breathing since yesterday. Reports low-grade temp of 101. Patient does not receive the flu vaccine. No complaints of vomiting or diarrhea. Patient respiratory rate even unlabored I have greeted and performed a rapid initial assessment of this patient. A comprehensive ED assessment and evaluation of the patient, analysis of test results and completion of the medical decision making process will be conducted by additional ED providers. TRAVEL OUTSIDE OF THE [place] IN LAST 30 DAYS: No - Related Data Allergies/Adverse Reactions: amoxicillin [Amoxicillin] Allergy (Severe, Verified 04/12/19 10:10) Anaphylaxis clarithromycin [From Biaxin] Allergy (Severe, Verified 04/12/19 10:10) Severe N&V eszopiclone [From Lunesta] Allergy (Severe, Verified 04/12/19 10:10) Hyperactivity Iodinated Contrast Media [IV Dye, Iodine Containing] Allergy (Severe, Verified 04/12/19 10:10) Anaphylaxis lamotrigine [From Lamictal] Allergy (Severe, Verified 04/12/19 10:10) SEVERE RASH INSIDE AND OUT lisinopril [Lisinopril] Allergy (Severe, Verified 04/12/19 10:10) Severe cough Penicillins Allergy (Severe, Verified 04/12/19 10:10) Anaphylaxis sulfamethoxazole [From Bactrim] Allergy (Unknown, Verified 04/12/19 10:10) trimethoprim [From Bactrim] Allergy (Unknown, Verified 04/12/19 10:10) Past Medical History - Past Medical History Cardiac Medical History: Reports: Hx Hypertension - Family tells me that her blood pressure is often 60-80 systolic at home Denies: Hx Coronary Artery Disease, Hx Heart Attack Pulmonary Medical History: Denies: Hx Asthma, Hx Bronchitis, Hx COPD, Hx Pneumonia Neurological Medical History: Reports: Hx Cerebrovascular Accident. Denies: Hx Seizures Endocrine Medical History: Reports: Hx Diabetes Mellitus Type 2 Renal/ Medical History: Denies: Hx Peritoneal Dialysis Musculoskeltal Medical History: Reports Hx Arthritis - Rheumatoid arthritis, lupus, vasculitis, Sjogren syndrome Past Surgical History: Reports: Hx Appendectomy, Hx Breast Surgery, Hx Cholecystectomy, Hx Hysterectomy - Immunizations Hx Diphtheria, Pertussis, Tetanus Vaccination: Yes Physical Exam - Vital signs Vitals: Temp Pulse Resp BP Pulse Ox 98.7 F 106 H 22 H 137/76 H 94 05/19/19 11:53 05/19/19 11:53 05/19/19 11:53 05/19/19 11:53 05/19/19 11:53 Course - Vital Signs Vital signs: Temp Pulse Resp BP Pulse Ox 98.7 F 106 H 22 H 137/76 H 94 05/19/19 11:53 05/19/19 11:53 05/19/19 11:53 05/19/19 11:53 05/19/19 11:53 Doctor's Discharge - Discharge Referrals: TERRENCE SAMS MD [Primary Care Provider] - Follow up as needed
[2019-05-19 12:40] LABS: ABSOLUTE BASOPHILS # (AUTO) 0.1 10^3/uL (0.0-0.2); ABSOLUTE EOSINOPHILS # (AUTO) 0.5 10^3/uL (0.0-0.6); ABSOLUTE LYMPHOCYTES (AUTO) 1.5 10^3/uL (0.5-4.7); ABSOLUTE MONOCYTES (AUTO) 0.7 10^3/uL (0.1-1.4); BASOPHILS % (AUTO) 0.3 % (0-2); EOSINOPHILS % (AUTO) 2.5 % (0-6); HEMATOCRIT 40.3 % (36.0-47.0); HEMOGLOBIN 13.7 g/dL (12.0-15.5); LYMPHOCYTES % (AUTO) 7.5 % (13-45); MEAN CORPUSCULAR HEMOGLOBIN 28.9 pg (27.0-33.4); MEAN CORPUSCULAR VOLUME 85 fl (80-97); MONOCYTES % (AUTO) 3.4 % (3-13); PLATELET COUNT 421 10^3/uL (150-450); RED BLOOD COUNT 4.74 10^6/uL (3.72-5.28); RED CELL DISTRIBUTION WIDTH 13.4 % (11.5-14.0); SEGMENTED NEUTROPHILS % (AUTO) 86.3 % (42-78); TOTAL CELLS COUNTED % (AUTO) 100 %; WHITE BLOOD COUNT 19.7 10^3/uL (4.0-10.5)
[2019-05-19 13:01] LABS: ALBUMIN 4.9 g/dL (3.5-5.0); ALKALINE PHOSPHATASE 146 U/L (38-126); ANION GAP 13 (5-19); ASPARTATE AMINO TRANSFERASE 30 U/L (14-36); BILIRUBIN,DIRECT 0.3 mg/dL (0.0-0.4); BILIRUBIN,TOTAL 0.9 mg/dL (0.2-1.3); BLOOD UREA NITROGEN 12 mg/dL (7-20); CALCIUM 10.2 mg/dL (8.4-10.2); CARBON DIOXIDE 29 mmol/L (22-30); CHLORIDE 99 mmol/L (98-107); GLUCOSE 242 mg/dL (75-110); POTASSIUM 4.4 mmol/L (3.6-5.0)
--- NOTE | 2019-05-19 13:02 | EKG REPORT ---
SEVERITY:- BORDERLINE ECG - SINUS TACHYCARDIA BORDERLINE T ABNORMALITIES, DIFFUSE LEADS : Confirmed by: Roland rFank MD 19-May-2019 13:02:28
--- NOTE | 2019-05-19 13:07 | RADIOLOGY REPORT (SQ) ---
EXAM DESCRIPTION: CHEST 2 VIEWS COMPLETED DATE/TIME: 05/19/2019 12:38 pm REASON FOR STUDY: DIFF BREATHING COMPARISON: 11/08/2016 EXAM PARAMETERS: NUMBER OF VIEWS: two views TECHNIQUE: Digital Frontal and Lateral radiographic views of the chest acquired. RADIATION DOSE: NA LIMITATIONS: none FINDINGS: LUNGS AND PLEURA: No opacities, masses or pneumothorax. No pleural effusion. Unchanged el evation of the right hemidiaphragm. MEDIASTINUM AND HILAR STRUCTURES: No masses or contour abnormalities. HEART AND VASCULAR STRUCTURES: Heart normal size. No evidence for failure. BONES: No acute findings. HARDWARE: None in the chest. OTHER: No other significant finding. IMPRESSION: NO ACUTE RADIOGRAPHIC FINDING IN THE CHEST. TECHNICAL DOCUMENTATION: JOB ID: [id number] [employer]- All Rights Reserved Reading location - IP/workstation name: [email or web address]
[2019-05-19 13:44] LABS: A TYPE INFLUENZA AG NEGATIVE (NEGATIVE); B INFLUENZA AG NEGATIVE (NEGATIVE)
[2019-05-19 13:45] LABS: APPEARANCE,URINE SLIGHTLY-CLOUDY; BILIRUBIN,URINE NEGATIVE (NEGATIVE); GLUCOSE, URINE 150 mg/dL (NEGATIVE); KETONES,URINE TRACE mg/dL (NEGATIVE); LEUKOCYTE ESTERASE,URINE SMALL (NEGATIVE); NITRITE,URINE POSITIVE (NEGATIVE); PROTEIN,URINE 100 mg/dL (NEGATIVE); UROBILINOGEN,URINE NEGATIVE mg/dL (<2.0)
[2019-05-19 13:51] LABS: COLOR,URINE DARK YELLOW
[2019-05-19] MEDS ORDERED: IPRATROPIUM/ALBUTEROL 0.5-2.5 MG/3 ML AMPUL NEB ONE (13:56)
[2019-05-19] MEDS ORDERED: METHYLPREDNISOLONE INJ 125 MG/2 ML SDV IV ONE (13:56)
[2019-05-19] MEDS ORDERED: MORPHINE SULFATE 10 MG/ML INJ IV ONE (13:57)
[2019-05-19] MEDS ORDERED: CIPROFLOXACIN 400 MG/D5W RTU 400 MG/200 ML RTUPB IV ONE (15:06)
--- NOTE | 2019-05-19 15:09 | ER Document Report ---
ED General - General Chief Complaint: Shortness Of Breath Stated Complaint: BREATHING DIFFICULTY/CHEST PAIN/OVERALL PAIN Time Seen by Provider: 05/19/19 11:58 Primary Care Provider: TERRENCE SAMS MD [Primary Care Provider] - Follow up as needed Mode of Arrival: Wheelchair TRAVEL OUTSIDE OF THE [place] IN LAST 30 DAYS: No - HPI Notes: Patient is a 54-year-old female with a history of rheumatoid arthritis, vasculitis, chronic immunosuppressant therapy with prednisone, and asthma, who presents to the emergency department for evaluation of cough and shortness of breath. She states she is had low-grade fevers. Her symptoms started 2 days ago. She also states she said 4 to 5 days of dysuria and urinary frequency. She states she is had some hesitation with that as well. No nausea or vomiting. She is eating and drinking normally. Normal bowel movements. She has her normal pain, but denies any other significant pain at this time. - Related Data Allergies/Adverse Reactions: amoxicillin [Amoxicillin] Allergy (Severe, Verified 05/19/19 12:02) Anaphylaxis clarithromycin [From Biaxin] Allergy (Severe, Verified 05/19/19 12:02) Severe N&V eszopiclone [From Lunesta] Allergy (Severe, Verified 05/19/19 12:02) Hyperactivity Iodinated Contrast Media [IV Dye, Iodine Containing] Allergy (Severe, Verified 05/19/19 12:02) Anaphylaxis lamotrigine [From Lamictal] Allergy (Severe, Verified 05/19/19 12:02) SEVERE RASH INSIDE AND OUT lisinopril [Lisinopril] Allergy (Severe, Verified 05/19/19 12:02) Severe cough Penicillins Allergy (Severe, Verified 05/19/19 12:02) Anaphylaxis sulfamethoxazole [From Bactrim] Allergy (Unknown, Verified 05/19/19 12:02) trimethoprim [From Bactrim] Allergy (Unknown, Verified 05/19/19 12:02) Home Medications: List reviewed, please see notes Past Medical History - General Information source: Patient, Relative - Social History Smoking Status: Never Smoker Frequency of alcohol use: None Drug Abuse: None Family History: Reviewed & Not Pertinent Patient has suicidal ideation: No Patient has homicidal ideation: No - Medical History Notes: Rheumatoid arthritis, Sjogren's, vasculitis - Past Medical History Cardiac Medical History: Reports: Hx Hypertension - Family tells me that her blood pressure is often 60-80 systolic at home Denies: Hx Coronary Artery Disease, Hx Heart Attack Pulmonary Medical History: Reports: Hx Asthma Denies: Hx Bronchitis, Hx COPD, Hx Pneumonia Neurological Medical History: Denies: Hx Seizures Endocrine Medical History: Reports: Hx Diabetes Mellitus Type 2 Renal/ Medical History: Denies: Hx Peritoneal Dialysis Musculoskeletal Medical History: Reports Hx Arthritis - Rheumatoid arthritis, lupus, vasculitis, Sjogren syndrome Past Surgical History: Reports: Hx Appendectomy, Hx Breast Surgery, Hx Cholecystectomy, Hx Hysterectomy - Immunizations Hx Diphtheria, Pertussis, Tetanus Vaccination: Yes Review of Systems - Review of Systems Constitutional: Chills Respiratory: See HPI Genitourinary: See HPI -: Yes All other systems reviewed and negative Physical Exam - Vital signs Vitals: Temp Pulse Resp BP Pulse Ox 98.7 F 106 H 22 H 137/76 H 94 05/19/19 11:53 05/19/19 11:53 05/19/19 11:53 05/19/19 11:53 05/19/19 11:53 - Notes Notes: This is an obese 54-year-old female who appears her stated age in no acute distress. Head is normocephalic and atraumatic, pupils are equal round, reactive to light. Oral mucosa is moist. Uvula is midline. Neck is supple without meningismus. Heart is regular rate and rhythm. Lungs show expiratory wheezes throughout without focal findings. Abdomen is obese, soft, nontender. No CVA tenderness. Skin is warm and dry. Extremities without cyanosis or clubbing. No posterior calf tenderness. Peripheral pulses are equal. Course - Re-evaluation Re-evalutation: 05/19/19 15:12 Patient presents to the emergency department for evaluation. She is a chronically ill patient with autoimmune disorders, on chronic steroids, who p resents emergency department for evaluation of wheezing. She also has some urinary symptoms. She has markedly elevated white count, but she always seems to. I suspect this is all secondary to her prednisone therapy. She states this is the case as well. She is mildly tachycardic here, but I suspect this is secondary to her breathing treatments. Her chest x-ray is unremarkable. Her remainder of her blood work outside of leukocytosis is largely unremarkable. Her urinalysis does reveal nitrate positive specimen, this was sent for culture. Given this and her symptoms, I am inclined to treat her with antibiotics. Because of her immunocompromise state, she was given a dose of IV Cipro. She had anaphylaxis to penicillins in the past, and she does not believe she is ever been tried on cephalosporins, so I do not feel comfortable with this alternative. Given her other allergies, Cipro seemed the most appropriate choice. She was given a dose here. I will send her home with a Medrol Dosepak. She understands she is to continue her prednisone as well. She is feeling much improved after the breathing treatment, has had no nausea or vomiting, she is anxious to be discharged. Patient given meds and instructions for close follow- up. She is to return to the ED with worsening concerning symptoms of any sort. - Vital Signs Vital signs: Temp Pulse Resp BP Pulse Ox 98.7 F 106 H 28 H 100/46 L 95 05/19/19 11:53 05/19/19 11:53 05/19/19 15:01 05/19/19 15:01 05/19/19 15:01 - Laboratory Result Diagrams: 05/19/19 12:15 05/19/19 12:15 Laboratory results interpreted by me: 05/19/19 05/19/19 05/19/19 12:15 12:15 13:14 WBC 19.7 H Lymph % (Auto) 7.5 L Absolute Neuts (auto) 17.0 H Seg Neutrophils % 86.3 H Glucose 242 H Alkaline Phosphatase 146 H Urine Protein 100 H Urine Glucose (UA) 150 H Urine Ketones TRACE H Urine Nitrite POSITIVE H Ur Leukocyte Esterase SMALL H - EKG Interpretation by Me Additional EKG results interpreted by me: 05/19/19 15:14 Sinus tachycardia at the rate of 105 bpm. Normal axis and intervals. Nonspecific ST changes, no acute changes concerning for ischemia or infarction. There were no old studies available for comparison. Discharge - Discharge Clinical Impression: Acute asthma exacerbation Qualifiers: Asthma severity: mild Urinary tract infection Qualifiers: Urinary tract infection type: site unspecified Hematuria presence: without hematuria Qualified Code(s): N39.0 - Urinary tract infection, site not specified Condition: Stable Disposition: HOME, SELF-CARE Additional Instructions: Please take all of your medications as prescribed. Take your first dose of Cipro orally tonight. He can start the Medrol Dosepak tomorrow. Take all the Cipro until it is gone. Follow-up with primary care provider this week. If you develop fevers greater than 24 hours from now, vomiting, increased difficulty breathing, or any other new or concerning symptoms, please return immediately to the emergency department for reevaluation. Prescriptions: Ciprofloxacin HCl [Cipro 500 mg Tablet] 500 mg PO BID #10 tablet Methylprednisolone [Medrol Dosepack (4 mg/Tab) 21 Tab/Dosepak] 4 mg PO ASDIR PRN #21 [id number] PRN Reason: Referrals: TERRENCE SAMS MD [Primary Care Provider] - Follow up as needed
[2019-05-19] MEDS ORDERED: DIPHENHYDRAMINE HCL 50 MG/ML VIAL IV ONE (17:14)
[2019-05-19 18:53] VITALS: BP 135/69
== END 2019-05-19 18:53 | disposition home or self-care (01) ==
LOC: ER 11:36
DX: J45.901 Unspecified asthma with (acute) exacerbation (principal); N39.0 Urinary tract infection, site not specified; R06.02 Shortness of breath; M79.10 Myalgia, unspecified site; R00.0 Tachycardia, unspecified; Z88.0 Allergy status to penicillin; Z88.3 Allergy status to other anti-infective agents
CPT/HCPCS: 93005; 36415; 85025; 80053; 81001; 87804; 71046; 93010; J1200; J2930; J2270; J0744; J7620; 87086; 87088

== ENCOUNTER 2019-06-11 14:49 | Inpatient (IN) | payer BC, MEDICARE, OTHER ==
[2019-06-11] MEDS ORDERED: RINGERS LACTATED IV ONE (15:10)
[2019-06-11] MEDS ORDERED: KETOROLAC TROMETHAMINE INJ/PF 30 MG/1 ML SDV IV ONE (15:12)
--- NOTE | 2019-06-11 15:13 | ER Document Report ---
ED Medical Screen (RME) - General Chief Complaint: Fever Stated Complaint: FEVER/HEADACHE Time Seen by Provider: 06/11/19 15:05 Primary Care Provider: TERRENCE SAMS MD [Primary Care Provider] - Follow up as needed Notes: HPI: 54-year-old female who has diabetes, rheumatoid arthritis and lupus who is on immune modulators presenting for 3 days of fever, cough, generalized headache, shortness of breath. Patient states that she was told she was diagnosed with pneumonia and UTI 3 weeks ago and was placed on Cipro. Patient is not on oxygen at home normally. Patient called EMS today because fever went up to 103. EMS reports that pulse oximetry was 91% at home. Patient is also on prednisone daily because of her rheumatoid arthritis. I have greeted and performed a rapid initial assessment of this patient. A comprehensive ED assessment and evaluation of the patient, analysis of test results and completion of the medical decision making process will be conducted by additional ED providers PHYSICAL EXAMINATION: GENERAL: Chronically ill-appearing, well-nourished and in moderate acute distress. HEAD: Atraumatic, normocephalic. EYES: sclera anicteric, conjunctiva are normal. ENT: Moist mucous membranes. NECK: Normal range of motion LUNGS: Normal work of breathing, scattered rhonchi of posterior lobes HEART: 2+ radial pulses bilaterally, mild tachycardia ABD: limited by positioning for exam in triage. EXTREMITIES: no pitting or edema. No cyanosis. NEUROLOGICAL: No focal neurological deficits. Moves all extremities spontaneously and on command. PSYCH: Normal mood, normal affect. SKIN: Warm, Dry, normal turgor, no rashes or lesions noted. TRAVEL OUTSIDE OF THE [place] IN LAST 30 DAYS: No - Related Data Allergies/Adverse Reactions: amoxicillin [Amoxicillin] Allergy (Severe, Verified 05/19/19 12:02) Anaphylaxis clarithromycin [From Biaxin] Allergy (Severe, Verified 05/19/19 12:02) Severe N&V eszopiclone [From Lunesta] Allergy (Severe, Verified 05/19/19 12:02) Hyperactivity Iodinated Contrast Media [IV Dye, Iodine Containing] Allergy (Severe, Verified 05/19/19 12:02) Anaphylaxis lamotrigine [From Lamictal] Allergy (Severe, Verified 05/19/19 12:02) SEVERE RASH INSIDE AND OUT lisinopril [Lisinopril] Allergy (Severe, Verified 05/19/19 12:02) Severe cough Penicillins Allergy (Severe, Verified 05/19/19 12:02) Anaphylaxis sulfamethoxazole [From Bactrim] Allergy (Unknown, Verified 05/19/19 12:02) trimethoprim [From Bactrim] Allergy (Unknown, Verified 05/19/19 12:02) Home Medications: Duloxetine, Hydromorphone, Oxycarbazepine, Quetiapine, Sertraline Past Medical History - Past Medical History Cardiac Medical History: Reports: Hx Hypertension - Family tells me that her blood pressure is often 60-80 systolic at home Denies: Hx Coronary Artery Disease, Hx Heart Attack Pulmonary Medical History: Reports: Hx Asthma Denies: Hx Bronchitis, Hx COPD, Hx Pneumonia Neurological Medical History: Reports: Hx Cerebrovascular Accident. Denies: Hx Seizures Endocrine Medical History: Reports: Hx Diabetes Mellitus Type 2 Renal/ Medical History: Denies: Hx Peritoneal Dialysis Musculoskeltal Medical History: Reports Hx Arthritis - Rheumatoid arthritis, lupus, vasculitis, Sjogren syndrome Past Surgical History: Reports: Hx Appendectomy, Hx Breast Surgery, Hx Cholecys tectomy, Hx Hysterectomy - Immunizations Hx Diphtheria, Pertussis, Tetanus Vaccination: Yes Physical Exam - Vital signs Vitals: Temp Pulse Resp BP Pulse Ox 100.9 F H 109 H 22 H 152/89 H 95 06/11/19 15:00 06/11/19 15:00 06/11/19 15:00 06/11/19 15:00 06/11/19 15:00 Course - Vital Signs Vital signs: Temp Pulse Resp BP Pulse Ox 100.9 F H 109 H 22 H 152/89 H 95 06/11/19 15:00 06/11/19 15:00 06/11/19 15:00 06/11/19 15:00 06/11/19 15:00 Doctor's Discharge - Discharge Referrals: TERRENCE SAMS MD [Primary Care Provider] - Follow up as needed
[2019-06-11 15:55] LABS: VENOUS BLOOD BASE EXCESS 0.3 mmol/L; VENOUS BLOOD HCO3 25.3 mmol/L (20-32); VENOUS BLOOD PCO2 41.7 mmHg (35-63); VENOUS BLOOD PH 7.4 (7.30-7.42)
[2019-06-11 15:59] LABS: ABSOLUTE EOSINOPHILS # (AUTO) 0.1 10^3/uL (0.0-0.6); ABSOLUTE LYMPHOCYTES (AUTO) 1.1 10^3/uL (0.5-4.7); ABSOLUTE MONOCYTES (AUTO) 0.7 10^3/uL (0.1-1.4); ABSOLUTE NEUT (AUTO) 15.8 10^3/uL (1.7-8.2); BASOPHILS % (AUTO) 0.1 % (0-2); EOSINOPHILS % (AUTO) 0.7 % (0-6); HEMATOCRIT 38.4 % (36.0-47.0); LYMPHOCYTES % (AUTO) 6.3 % (13-45); MEAN CORPUSCULAR HEMOGLOBIN 28.9 pg (27.0-33.4); MEAN CORPUSCULAR HGB CONC 33.8 g/dL (32.0-36.0); MEAN CORPUSCULAR VOLUME 86 fl (80-97); MONOCYTES % (AUTO) 4.1 % (3-13); PLATELET COUNT 381 10^3/uL (150-450); RED BLOOD COUNT 4.48 10^6/uL (3.72-5.28); RED CELL DISTRIBUTION WIDTH 13.9 % (11.5-14.0); SEGMENTED NEUTROPHILS % (AUTO) 88.8 % (42-78); TOTAL CELLS COUNTED % (AUTO) 100 %; WHITE BLOOD COUNT 17.8 10^3/uL (4.0-10.5)
[2019-06-11] MEDS ORDERED: LEVOFLOXACIN 750 MG/D5W RTU 750 MG/150 ML RTUPB IV ONE (16:00)
[2019-06-11 16:01] LABS: INTERNATIONAL RATION (INR) 1.02; PROTHROMBIN TIME 13.4 SEC (11.4-15.4)
[2019-06-11 16:14] LABS: ALBUMIN 3.9 g/dL (3.5-5.0); ALKALINE PHOSPHATASE 158 U/L (38-126); ANION GAP 9 (5-19); ASPARTATE AMINO TRANSFERASE 61 U/L (14-36); BILIRUBIN,TOTAL 0.6 mg/dL (0.2-1.3); BLOOD UREA NITROGEN 8 mg/dL (7-20); CARBON DIOXIDE 26 mmol/L (22-30); CHLORIDE 101 mmol/L (98-107); GLUCOSE 190 mg/dL (75-110); POTASSIUM 3.8 mmol/L (3.6-5.0); TOTAL PROTEIN 6.6 g/dL (6.3-8.2)
--- NOTE | 2019-06-11 16:15 | RADIOLOGY REPORT (SQ) ---
EXAM DESCRIPTION: CHEST 2 VIEWS COMPLETED DATE/TIME: 06/11/2019 4:05 pm REASON FOR STUDY: cough fever COMPARISON: 05/19/2019 EXAM PARAMETERS: NUMBER OF VIEWS: two views TECHNIQUE: Digital Frontal and Lateral radiographic views of the chest acquired. RADIATION DOSE: NA LIMITATIONS: none FINDINGS: LUNGS AND PLEURA: Ill-defined left basilar opacities. No pleural effusion or pneumothorax . MEDIASTINUM AND HILAR STRUCTURES: No masses or contour abnormalities. HEART AND VASCULAR STRUCTURES: Borderline enlarged, stable. BONES: No acute findings. HARDWARE: None in the chest. OTHER: No other significant finding. IMPRESSION: Ill-defined left lower lobe opacities compatible with pneumonia. TECHNICAL DOCUMENTATION: JOB ID: [id number] 2010 [employer]- All Rights Reserved Reading location - IP/workstation name: [email or web address]
[2019-06-11] MEDS ORDERED: HYDROCORTISONE SOD SUCCINATE INJ/PF 100 MG/2 ML SDV IV ONE (16:47)
[2019-06-11] MEDS ORDERED: VANCOMYCIN HCL INJ 1000 MG VIAL IV ONE (16:47)
[2019-06-11] MEDS ORDERED: METOCLOPRAMIDE HCL INJ/PF 10 MG/2 ML SDV IV ONE (16:48)
[2019-06-11] MEDS ORDERED: FENTANYL CITRATE INJ/PF 100 MCG/2 ML AMPUL IV ONE (16:49)
--- NOTE | 2019-06-11 17:08 | ER Document Report ---
ED General - General Chief Complaint: Fever Stated Complaint: FEVER/HEADACHE Time Seen by Provider: 06/11/19 15:05 Primary Care Provider: TERRENCE SAMS MD [Primary Care Provider] - Follow up as needed TRAVEL OUTSIDE OF THE [place] IN LAST 30 DAYS: No - HPI Notes: Patient is a 54-year-old female with a history of rheumatoid arthritis, vasculitis, chronic immunosuppressant therapy with prednisone, and asthma, who presents to the emergency department for evaluation of cough, fever and headache. She states she is had low-grade fevers. Her symptoms started 2 days ago. No nausea or vomiting. She is eating and drinking normally. Normal bowel movements. Patient says she was treated for sepsis at [facility] several years ago and "feels just the same way" at this time. Patient is followed at [facility] in [place] for her vasculitis. She is on multiple medications including 10 mg of prednisone daily. Patient has had an adverse reaction to influenza vaccine in the past and so she no longer takes this. Patient says she has had exposure to several individuals with flulike illnesses at [facility]. She denies any travel outside the area. She denies any known ex posure to anyone identified as having COVID-19. - Related Data Allergies/Adverse Reactions: amoxicillin [Amoxicillin] Allergy (Severe, Verified 05/19/19 12:02) Anaphylaxis clarithromycin [From Biaxin] Allergy (Severe, Verified 05/19/19 12:02) Severe N&V eszopiclone [From Lunesta] Allergy (Severe, Verified 05/19/19 12:02) Hyperactivity Iodinated Contrast Media [IV Dye, Iodine Containing] Allergy (Severe, Verified 05/19/19 12:02) Anaphylaxis lamotrigine [From Lamictal] Allergy (Severe, Verified 05/19/19 12:02) SEVERE RASH INSIDE AND OUT lisinopril [Lisinopril] Allergy (Severe, Verified 05/19/19 12:02) Severe cough Penicillins Allergy (Severe, Verified 05/19/19 12:02) Anaphylaxis sulfamethoxazole [From Bactrim] Allergy (Unknown, Verified 05/19/19 12:02) trimethoprim [From Bactrim] Allergy (Unknown, Verified 05/19/19 12:02) Home Medications: Duloxetine, Hydromorphone, Oxycarbazepine, Quetiapine, Sertraline Past Medical History - Social History Smoking Status: Unknown if Ever Smoked Family History: Reviewed & Not Pertinent Patient has suicidal ideation: No Patient has homicidal ideation: No - Past Medical History Cardiac Medical History: Reports: Hx Hypertension - Family tells me that her blood pressure is often 60-80 systolic at home Denies: Hx Coronary Artery Disease, Hx Heart Attack Pulmonary Medical History: Reports: Hx Asthma Denies: Hx Bronchitis, Hx COPD, Hx Pneumonia Neurological Medical History: Reports: Hx Cerebrovascular Accident. Denies: Hx Seizures Endocrine Medical History: Reports: Hx Diabetes Mellitus Type 2 Renal/ Medical History: Denies: Hx Peritoneal Dialysis Musculoskeletal Medical History: Reports Hx Arthritis - Rheumatoid arthritis, lupus, vasculitis, Sjogren syndrome Past Surgical History: Reports: Hx Appendectomy, Hx Breast Surgery, Hx Cholecystectomy, Hx Hysterectomy - Immunizations Hx Diphtheria, Pertussis, Tetanus Vaccination: Yes Review of Systems - Review of Systems Notes: Constitutional: As per HPI. HENT: Negative for sore throat. Eyes: Negative for visual changes. Cardiovascular: Negative for chest pain. Respiratory: Negative for shortness of breath. Gastrointestinal: Negative for abdominal pain, vomiting or diarrhea. Genitourinary: Negative for dysuria. Musculoskeletal: Diffuse myalgias. Skin: Negative for rash. Neurological: As per HPI . 10 point ROS negative except as marked above and in HPI. Physical Exam - Vital signs Vitals: Temp Pulse Resp BP Pulse Ox 100.9 F H 109 H 22 H 152/89 H 95 06/11/19 15:00 06/11/19 15:00 06/11/19 15:00 06/11/19 15:00 06/11/19 15:00 - Notes Notes: GENERAL: Middle-age female who has a nonproductive cough and appears uncomfortable. SKIN: Good turgor no rashes. HEAD: Normocephalic atraumatic. EYES: PERRLA. EOMI. Conjunctivae and sclerae clear. EARS: CANALS AND TMS CLEAR. NOSE: CLEAR. MOUTH: Moist mucosa. Good dentition. No stridor or edema. No drooling. NECK: Supple. No masses or thyromegaly. No adenopathy. Carotids 2+ without bruits. No JVD. BACK: Symmetrical without tenderness. CHEST: Respirations unlabored. Scattered coarse rhonchi bilaterally. Diminished breath sounds left base. HEART: Tachycardic regular rhythm. No murmur gallop or rub. ABDOMEN: Soft nontender without masses, organomegaly or rebound. Bowel sounds normally active. No bruits. GENITALIA: Deferred. EXTREMITIES: No edema. No calf tenderness. Cap refill less than 1.5 seconds. Dorsalis pedis and posterior tibial pulses 3+ and symmetrical. NEUROLOGICAL: GCS 15. Alert and oriented x3. Fluent speech. Cranial nerves II through XII intact. Sensorimotor and cerebellar normal. Normal tone. PSYCHIATRIC: Appropriate affect. Course - Re-evaluation Re-evalutation: 06/11/19 17:55 Findings consistent with early sepsis. Lactate is 2.1. White count is 17.5. Transaminases mildly abnormal. Chemistry profile otherwise unremarkable. Patient has a left lower lobe infiltrate on chest x-ray. Oxygenation is normal. She was mildly tachycardic when she came in but her blood pressures been good. She is received fluid bolus and blood cultures were drawn. Urinalysis shows some pyuria. Patient was treated with IV Levaquin and vancomycin. She is also received a stress dose of Solu-Cortef. Nasal swab for influenza a and B are negative. Findings are discussed with patient and her . Admission has been accepted by Dr. Millan. - Vital Signs Vital signs: Temp Pulse Resp BP Pulse Ox 100.9 F H 109 H 22 H 152/89 H 94 06/11/19 15:00 06/11/19 15:00 06/11/19 15:00 06/11/19 15:00 06/11/19 16:18 - Laboratory Result Diagrams: 06/11/19 15:22 06/11/19 15:22 Laboratory results interpreted by me: 06/11/19 06/11/19 15:22 15:22 WBC 17.8 H Lymph % (Auto) 6.3 L Absolute Neuts (auto) 15.8 H Seg Neutrophils % 88.8 H Sodium 136.3 L Glucose 190 H AST 61 H ALT 59 H Alkaline Phosphatase 158 H Discharge - Discharge Clinical Impression: Vasculitis Sepsis Qualifiers: Sepsis type: sepsis due to unspecified organism Sepsis acute organ dysfunction status: with acute organ dysfunction Severe sepsis acute organ dysfunction type: unspecified Severe sepsis shock status: without septic shock Qualified Code(s): A41.9 - Sepsis, unspecified organism; R65.20 - Severe sepsis without septic shock Pneumonia Qualifiers: Pneumonia type: due to unspecified organism Laterality: left Lung location: lower lobe of lung Qualified Code(s): J18.9 - Pneumonia, unspecified organism Rheumatoid arthritis Qualifiers: Rheumatoid arthritis location: multiple sites Rheumatoid factor presence: unspecified presence Qualified Code(s): M06.9 - Rheumatoid arthritis, unspecified Condition: Serious Disposition: ADMITTED INPATIENT Admitting Provider: Lenny (Hospitalist) Unit Admitted: Telemetry Referrals: TERRENCE SAMS MD [Primary Care Provider] - Follow up as needed
[2019-06-11 17:59] LABS: A TYPE INFLUENZA AG NEGATIVE (NEGATIVE); B INFLUENZA AG NEGATIVE (NEGATIVE)
--- NOTE | 2019-06-11 18:15 | EKG REPORT ---
SEVERITY:- BORDERLINE ECG - SINUS TACHYCARDIA BORDERLINE T ABNORMALITIES, DIFFUSE LEADS : Confirmed by: Roland Frank MD 11-Jun-2019 18:14:47
[2019-06-11] MEDS ORDERED: MAG HYDROX/AL HYDROX/SIMETH SUSP 30 ML UDCUP PO PRN (18:19)
[2019-06-11] MEDS ORDERED: PROMETHAZINE HCL INJ 25 MG/1 ML VIAL IV PRN (18:19)
[2019-06-11] MEDS ORDERED: IPRATROPIUM/ALBUTEROL 0.5-2.5 MG/3 ML AMPUL NEB PRN (18:19)
[2019-06-11] MEDS ORDERED: ACETAMINOPHEN 325 MG TABLET PO PRN (18:19)
[2019-06-11] MEDS ORDERED: DEXTROSE 40% GEL 15 GM TUBE PO PRN ×2 (18:29)
[2019-06-11] MEDS ORDERED: GLUCAGON,HUMAN RECOMB 1 MG INJ IM PRN (18:29)
[2019-06-11] MEDS ORDERED: DEXTROSE 50%-WATER 25 GM/50 ML DISP.SYRIN IV PRN ×2 (18:29)
[2019-06-11] MEDS ORDERED: VANCOMYCIN HCL 0 MG in DEXTROSE 5%-WATER 250 ML IV NR (18:30)
[2019-06-11] MEDS ORDERED: MORPHINE SULFATE 10 MG/ML INJ IV PRN (18:46)
--- NOTE | 2019-06-11 19:00 | PDOC H&P ---
History of Present Illness Admission Date/PCP: 06/11/19 18:17 TERRENCE SAMS MD History of Present Illness: AARON REGAN is a 54 year old female comes in with a 2-day history of fever feeling tired and a dry cough. Patient states she has collagen vascular disease for 20 years now of rheumatoid arthritis vasculitis and sjorgens syndrome. However when patient started running a fever of 103 at home with the coughing she figured she should come in. This x-ray tonight shows a lower lobe pneumonia She has multiple drug allergies and also is on multiple chronic long-term medicines as well that have a QT interaction. It was decided that combination of meropenem and vancomycin would be the best choice, due to her multiple drug allergies as well as QT interactions. Patient was here less than a month ago with a UTI and was sent out on doxycycline at that time her white count was elevated, night is elevated but not significantly different than when she was here several weeks ago. In fact is lower tonight than it was several weeks ago tonight 17,800 platelets 381,000. Patient is seen here in town by a local opal miner Dr. Romo and also goes to [facility] every couple of months is she has family in the area. Lactic acid is 2.1 Patient does not appear to be septic or toxic clinically. Past Medical History Cardiac Medical History: Reports: Hypertension - Family tells me that her blood pressure is often 60-80 systolic at home Denies: Coronary Artery Disease, Myocardial Infarction Pulmonary Medical History: Reports: Asthma Denies: Bronchitis, Chronic Obstructive Pulmonary Disease (COPD), Pneumonia Neurological Medical History: Denies: Seizures Endocrine Medical History: Reports: Diabetes Mellitus Type 2 Musculoskeltal Medical History: Reports: Arthritis - Rheumatoid arthritis, lupus, vasculitis, Sjogren syndrome Hematology: Denies: Anemia Past Surgical History Past Surgical History: Reports: Appendectomy, Cholecystectomy, Hysterectomy Social History Smoking Status: Unknown if Ever Smoked - Advance Directive Resuscitation Status: Patient states she saw her mother last year and patient does not want to be resuscitated Family History Family History: Reviewed & Not Pertinent Parental Family History Reviewed: No Children Family History Reviewed: No Sibling(s) Family History Reviewed.: No Medication/Allergy Home Medications: Aspirin [Aspirin 81 mg Chewable Tablet] 81 mg PO DAILY 06/02/13 Cevimeline HCl [Evoxac] 30 mg PO BID 06/02/13 Duloxetine HCl [Cymbalta 30 mg Capsule.dr] 60 mg PO BID 06/02/13 Prednisone 5 mg PO DAILY 06/02/13 Simvastatin 40 mg PO DAILY 06/02/13 Gabapentin 300 mg PO Q4 06/08/13 Tizanidine HCl [Zanaflex] 2 mg PO BID 06/08/13 Hydromorphone HCl 4 mg PO ASDIR PRN 09/26/15 Sertraline HCl 100 mg PO BID 09/26/15 Dronabinol [Marinol] 2.5 mg PO TID 04/12/19 Folic Acid 1 mg PO DAILY 04/12/19 Hydroxychloroquine Sulfate [Plaquenil] 200 mg PO BID 04/12/19 Hydroxyzine HCl [Atarax 25 mg Tablet] 1 tab PO ASDIR PRN 04/12/19 Insulin Aspart [Novolog Flexpen] 0 unit SUBCUT .SLD SCALE 04/12/19 Oxcarbazepine [Trileptal] 150 mg PO BID 04/12/19 Oxycodone Myristate [Xtampza ER] 36 mg PO BID 04/12/19 Prednisone [Deltasone 20 mg Tablet] 5 tab PO DAILY 04/12/19 Quetiapine Fumarate [Seroquel 100 mg Tablet] 100 mg PO Q12 04/12/19 Telmisartan 20 mg PO DAILY 04/12/19 Doxycycline Hyclate [Vibramycin 100 mg Tablet] 100 mg PO BID #20 tablet 05/19/19 Methylprednisolone [Medrol Dosepack (4 mg/Tab) 21 Tab/Dosepak] 4 mg PO ASDIR PRN #21 tab.ds.pk 05/19/19 Allergies/Adverse Reactions: amoxicillin [Amoxicillin] Allergy (Severe, Verified 05/19/19 12:02) Anaphylaxis clarithromycin [From Biaxin] Allergy (Severe, Verified 05/19/19 12:02) Severe N&V eszopiclone [From Lunesta] Allergy (Severe, Verified 05/19/19 12:02) Hyperactivity Iodinated Contrast Media [IV Dye, Iodine Containing] Allergy (Severe, Verified 05/19/19 12:02) Anaphylaxis lamotrigine [From Lamictal] Allergy (Severe, Verified 05/19/19 12:02) SEVERE RASH INSIDE AND OUT lisinopril [Lisinopril] Allergy (Severe, Verified 05/19/19 12:02) Severe cough Penicillins Allergy (Severe, Verified 05/19/19 12:02) Anaphylaxis sulfamethoxazole [From Bactrim] Allergy (Unknown, Verified 05/19/19 12:02) trimethoprim [From Bactrim] Allergy (Unknown, Verified 05/19/19 12:02) Review of Systems Constitutional: PRESENT: chills, fever(s), weakness Respiratory: PRESENT: cough Gastrointestinal: ABSENT: abdominal pain, constipation, diarrhea, hematemesis, hematochezia, nausea, vomiting Neurological: ABSENT: abnormal gait, abnormal speech, confusion, dizziness, focal weakness, syncope Psychiatric: ABSENT: anxiety, depression, homidical ideation, suicidal ideation Physical Exam Vital Signs: Temp Pulse Resp BP Pulse Ox 100.9 F H 109 H 22 H 152/89 H 94 06/11/19 15:00 06/11/19 15:00 06/11/19 15:00 06/11/19 15:00 06/11/19 16:18 Intake & Output 06/10/19 06/11/19 06/12/19 06:59 06:59 06:59 Weight 76.3 kg General appearance: PRESENT: no acute distress, other - Sitting up talking in full sentences Respiratory exam: PRESENT: clear to auscultation keri. ABSENT: rales, rhonchi, wheezes Cardiovascular exam: PRESENT: RRR. ABSENT: diastolic murmur, rubs, systolic murmur Neurological exam: PRESENT: alert, awake, oriented to person, oriented to place, oriented to time, oriented to situation, CN II-XII grossly intact. ABSENT: motor sensory deficit Psychiatric exam: PRESENT: appropriate affect, normal mood. ABSENT: homicidal ideation, suicidal ideation Results Laboratory Results: 06/11/19 15:22 06/11/19 15:22 06/11/19 06/11/19 06/11/19 15:22 15:22 15:22 WBC 17.8 H RBC 4.48 Hgb 13.0 Hct 38.4 MCV 86 MCH 28.9 MCHC 33.8 RDW 13.9 Plt Count 381 Seg Neutrophils % 88.8 H VBG pH 7.40 VBG pCO2 41.7 VBG HCO3 25.3 VBG Base Excess 0.3 Sodium 136.3 L Potassium 3.8 Chloride 101 Carbon Dioxide 26 Anion Gap 9 BUN 8 Creatinine 0.58 Est GFR ( Amer) > 60 Glucose 190 H Lactic Acid Calcium 9.0 Total Bilirubin 0.6 AST 61 H Alkaline Phosphatase 158 H Total Protein 6.6 Albumin 3.9 06/11/19 06/11/19 15:22 18:21 WBC RBC Hgb Hct MCV MCH MCHC RDW Plt Count Seg Neutrophils % VBG pH VBG pCO2 VBG HCO3 VBG Base Excess Sodium Potassium Chloride Carbon Dioxide Anion Gap BUN Creatinine Est GFR ( Amer) Glucose Lactic Acid 2.1 1.6 Calcium Total Bilirubin AST Alkaline Phosphatase Total Protein Albumin 06/11/19 15:22 Troponin I < 0.012 Impressions: Chest X-Ray 06/11/19 15:11 IMPRESSION: Ill-defined left lower lobe opacities compatible with pneumonia. Assessment and Plan - Diagnosis (1) Diabetes Is this a current diagnosis for this admission?: Yes (2) Pneumonia Qualifiers: Pneumonia type: due to unspecified organism Laterality: left Lung location: lower lobe of lung Qualified Code(s): J18.9 - Pneumonia, unspecified organism Is this a current diagnosis for this admission?: Yes (3) Rheumatoid arthritis Qualifiers: Rheumatoid arthritis location: multiple sites Rheumatoid factor presence: unspecified presence Qualified Code(s): M06.9 - Rheumatoid arthritis, unspecified Is this a current diagnosis for this admission?: Yes (4) Sepsis Qualifiers: Sepsis type: sepsis due to unspecified organism Sepsis acute organ dysfunction status: with acute organ dysfunction Severe sepsis acute organ dysfunction type: unspecified Severe sepsis shock status: without septic shock Qualified Code(s): A41.9 - Sepsis, unspecified organism; R65.20 - Severe sepsis without septic shock Is this a current diagnosis for this admission?: Yes (5) Vasculitis Is this a current diagnosis for this admission?: Yes - Plan Summary Summary: Patient's home meds have been entered manually and more may need to be done once they are reconciled. Patient will be put on IV antibiotics. Patient was given 100 mg of solu Cortef tonight, have continued with Solu-Medrol every 12 hours. Patient does not appear to be septic or toxic. Told her that she will probably be here 3 to 5 days for IV antibiotics. She is agreeable to that She is medically stable to go to the floor - Time Time Spent with patient: 35 or more minutes
[2019-06-11 19:35] LABS: ANION GAP 8 (5-19); BLOOD UREA NITROGEN 9 mg/dL (7-20); CALCIUM 8.8 mg/dL (8.4-10.2); CARBON DIOXIDE 25 mmol/L (22-30); CHLORIDE 101 mmol/L (98-107); GLUCOSE 286 mg/dL (75-110); POTASSIUM 4.1 mmol/L (3.6-5.0)
[2019-06-11 20:22] LABS: APPEARANCE,URINE CLEAR; BILIRUBIN,URINE NEGATIVE (NEGATIVE); COLOR,URINE YELLOW; GLUCOSE, URINE >=500 mg/dL (NEGATIVE); KETONES,URINE NEGATIVE (NEGATIVE); PROTEIN,URINE NEGATIVE (NEGATIVE); URINE SPECIFIC GRAVITY 1.014; UROBILINOGEN,URINE NEGATIVE mg/dL (<2.0)
[2019-06-11] MEDS: OXCARBAZEPINE 150 MG TABLET PO SCH (22:20)
[2019-06-11] MEDS: METHYLPREDNISOLONE INJ 40 MG/1 ML SDV IV SCH (22:20)
[2019-06-11] MEDS: FAMOTIDINE INJ/PF 20 MG/2 ML SDV IV SCH (22:20)
[2019-06-11] MEDS: DULOXETINE HCL 30 MG CAPSULE.DR PO SCH (22:20)
[2019-06-11] MEDS: INSULIN LISPRO 100 UNIT/ML 3 ML VIAL SUBCUT SCH (22:21)
[2019-06-11] MEDS: VANCOMYCIN HCL 1,000 MG in DEXTROSE 5%-WATER 250 ML IV SCH (22:22)
[2019-06-11] MEDS: OXYCODONE-ACETAMINOPHEN 5-325 MG TABLET PO PRN (22:34)
[2019-06-12 05:19] LABS: HEMATOCRIT 38.1 % (36.0-47.0); HEMOGLOBIN 12.7 g/dL (12.0-15.5); MEAN CORPUSCULAR HEMOGLOBIN 28.5 pg (27.0-33.4); MEAN CORPUSCULAR HGB CONC 33.2 g/dL (32.0-36.0); MEAN CORPUSCULAR VOLUME 86 fl (80-97); PLATELET COUNT 378 10^3/uL (150-450); RED BLOOD COUNT 4.44 10^6/uL (3.72-5.28); RED CELL DISTRIBUTION WIDTH 13.7 % (11.5-14.0); WHITE BLOOD COUNT 15.4 10^3/uL (4.0-10.5)
[2019-06-12] MEDS: MEROPENEM 500 MG in NORMAL SALINE 50 ML IV SCH ×3 (05:48→22:23)
[2019-06-12 06:03] LABS: ABSOLUTE LYMPHOCYTES# (MANUAL) 0.6 10^3/uL (0.5-4.7); ABSOLUTE MONOCYTES # (MANUAL) 0.5 10^3/uL (0.1-1.4); BASOPHILS % (MANUAL) 0 % (0-2); EOSINOPHILS % (MANUAL) 0 % (0-6); LYMPHOCYTES % (MANUAL) 4 % (13-45); MONOCYTES % (MANUAL) 3 % (3-13); SEGMENTED NEUTROPHILS % (MAN) 93 % (42-78); TOTAL CELLS COUNTED 100
[2019-06-12 06:04] LABS: ANISOCYTOSIS SLIGHT; OVALOCYTES 1+; PLATELET COMMENT ADEQUATE; TEAR DROP CELLS SLIGHT
[2019-06-12] MEDS: OXYCODONE-ACETAMINOPHEN 5-325 MG TABLET PO PRN ×2 (07:21→17:56)
[2019-06-12] MEDS: QUETIAPINE FUMARATE 100 MG TABLET PO SCH ×3 (07:32→17:51)
[2019-06-12] MEDS: INSULIN LISPRO 100 UNIT/ML 3 ML VIAL SUBCUT SCH ×4 (07:36→22:20)
[2019-06-12] MEDS: METHYLPREDNISOLONE INJ 40 MG/1 ML SDV IV SCH ×2 (09:14→21:17)
[2019-06-12] MEDS: OXCARBAZEPINE 150 MG TABLET PO SCH ×2 (09:14→21:19)
[2019-06-12] MEDS: FAMOTIDINE INJ/PF 20 MG/2 ML SDV IV SCH ×2 (09:14→21:18)
[2019-06-12] MEDS: VANCOMYCIN HCL 1,000 MG in DEXTROSE 5%-WATER 250 ML IV SCH ×2 (09:14→20:18)
[2019-06-12] MEDS: HYDROXYCHLOROQUINE SULFATE 200 MG TABLET PO SCH ×2 (09:14→17:51)
[2019-06-12] MEDS: FOLIC ACID 1 MG TABLET PO SCH (09:14)
[2019-06-12] MEDS: DULOXETINE HCL 30 MG CAPSULE.DR PO SCH ×2 (09:14→21:19)
[2019-06-12] MEDS: ENOXAPARIN SODIUM INJ 40 MG/0.4 ML DISP.SYRIN SUBCUT SCH (09:19)
[2019-06-12] MEDS: DOCUSATE SODIUM 100 MG CAPSULE PO SCH (09:19)
[2019-06-12] MEDS ORDERED: LEVOFLOXACIN 750 MG/D5W RTU 750 MG/150 ML RTUPB IV SCH (10:00)
--- NOTE | 2019-06-12 12:57 | PDOC PROGRESS REPORT ---
Subjective Progress Note for:: 06/12/19 Reason For Visit: SEPSIS, PNEUMONIA, VASCULITIS, PHEUMATOID ARTHRITI 06/12/2019 Patient was admitted with new onset pneumonia, however she also has rheumatoid arthritis, vasculitis, sjorgens syndrome Physical Exam Vital Signs: Temp Pulse Resp BP Pulse Ox 97.8 F 85 16 149/88 H 97 06/12/19 12:00 06/12/19 12:30 06/12/19 12:30 06/12/19 12:00 06/12/19 12:30 Intake & Output 06/11/19 06/12/19 06/13/19 06:59 06:59 07:59 Intake Total 510 Balance 510 Weight 77.9 kg General appearance: PRESENT: no acute distress, other - Patient states she is feeling better today Respiratory exam: PRESENT: decreased breath sounds Cardiovascular exam: PRESENT: RRR. ABSENT: diastolic murmur, rubs, systolic murmur Neurological exam: PRESENT: alert, awake, oriented to person, oriented to place, oriented to time, oriented to situation, CN II-XII grossly intact. ABSENT: motor sensory deficit Psychiatric exam: PRESENT: appropriate affect, normal mood. ABSENT: homicidal ideation, suicidal ideation Results Laboratory Results: 06/12/19 04:11 06/11/19 18:53 06/11/19 06/11/19 06/11/19 15:22 15:22 15:22 WBC 17.8 H RBC 4.48 Hgb 13.0 Hct 38.4 MCV 86 MCH 28.9 MCHC 33.8 RDW 13.9 Plt Count 381 Seg Neutrophils % 88.8 H VBG pH 7.40 VBG pCO2 41.7 VBG HCO3 25.3 VBG Base Excess 0.3 Sodium 136.3 L Potassium 3.8 Chloride 101 Carbon Dioxide 26 Anion Gap 9 BUN 8 Creatinine 0.58 Est GFR ( Amer) > 60 Glucose 190 H Lactic Acid Calcium 9.0 Total Bilirubin 0.6 AST 61 H Alkaline Phosphatase 158 H Total Protein 6.6 Albumin 3.9 Urine Color Urine Appearance Urine pH Ur Specific [place] Urine Protein Urine Glucose (UA) Urine Ketones Urine Blood Urine RBC (Auto) 06/11/19 06/11/19 06/11/19 15:22 18:21 18:53 WBC RBC Hgb Hct MCV MCH MCHC RDW Plt Count Seg Neutrophils % VBG pH VBG pCO2 VBG HCO3 VBG Base Excess Sodium 133.5 L Potassium 4.1 Chloride 101 Carbon Dioxide 25 Anion Gap 8 BUN 9 Creatinine 0.54 Est GFR ( Amer) > 60 Glucose 286 H Lactic Acid 2.1 1.6 Calcium 8.8 Total Bilirubin AST Alkaline Phosphatase Total Protein Albumin Urine Color Urine Appearance Urine pH Ur Specific [place] Urine Protein Urine Glucose (UA) Urine Ketones Urine Blood Urine RBC (Auto) 06/11/19 06/11/19 06/12/19 19:52 21:00 04:11 WBC 15.4 H RBC 4.44 Hgb 12.7 Hct 38.1 MCV 86 MCH 28.5 MCHC 33.2 RDW 13.7 Plt Count 378 Seg Neutrophils % Not Reportable VBG pH VBG pCO2 VBG HCO3 VBG Base Excess Sodium Potassium Chloride Carbon Dioxide Anion Gap BUN Creatinine Est GFR ( Amer) Glucose Lactic Acid 2.0 Calcium Total Bilirubin AST Alkaline Phosphatase Total Protein Albumin Urine Color YELLOW Urine Appearance CLEAR Urine pH 7.0 Ur Specific [place] 1.014 Urine Protein NEGATIVE Urine Glucose (UA) >=500 H Urine Ketones NEGATIVE Urine Blood NEGATIVE Urine RBC (Auto) 1 06/11/19 06/11/19 15:22 18:53 CK-MB (CK-2) < 0.22 Troponin I < 0.012 Impressions: Chest X-Ray 06/11/19 15:11 IMPRESSION: Ill-defined left lower lobe opacities compatible with pneumonia. Assessment and Plan - Diagnosis (1) Diabetes Is this a current diagnosis for this admission?: Yes (2) Pneumonia Qualifiers: Pneumonia type: due to unspecified organism Laterality: left Lung location: lower lobe of lung Qualified Code(s): J18.9 - Pneumonia, unspecified organism Is this a current diagnosis for this admission?: Yes (3) Rheumatoid arthritis Qualifiers: Rheumatoid arthritis location: multiple sites Rheumatoid factor presence: unspecified presence Qualified Code(s): M06.9 - Rheumatoid arthritis, unspecified Is this a current diagnosis for this admission?: Yes (4) Sepsis Qualifiers: Sepsis type: sepsis due to unspecified organism Sepsis acute organ dysfunction status: with acute organ dysfunction Severe sepsis acute organ dysfunction type: unspecified Severe sepsis shock status: without septic shock Qualified Code(s): A41.9 - Sepsis, unspecified organism; R65.20 - Severe sepsis without septic shock Is this a current diagnosis for this admission?: Yes (5) Vasculitis Is this a current diagnosis for this admission?: Yes - Plan Summary Summary: Patient's home meds have been entered manually and more may need to be done once they are reconciled. Patient will be put on IV antibiotics. Patient was given 100 mg of solu Cortef tonight, have continued with Solu-Medrol every 12 hours. Patient does not appear to be septic or toxic. Told her that she will probably be here 3 to 5 days for IV antibiotics. She is agreeable to that She is medically stable to go to the floor 06/12/2019 Patient remains afebrile 98 4 pulse is regular at 92 blood pressure is stable 152/79 O2 sat 98% on room air Patient's white count slightly improved on admission 17.8 today is 15.4 Fingerstick blood sugar on admission was 378 today it is 172, even though she is on steroids Hemoglobin A1c was 8.7 lactic acid 2.0 Flu swab yesterday was negative Urine culture shows no growth in 1 day blood cultures are pending Patient is currently receiving vancomycin and meropenem, she has had no reaction to either antibiotic, Solu-Medrol daily 40 mg every 12 hours For her yeast underneath her breast tissue given her p.o. Diflucan which she is used in the past Would like to get her out of the hospital as soon as possible due to her comorbidities. Admitting diagnosis is pneumonia - Time Time Spent with patient: 25-34 minutes
[2019-06-12] MEDS: FLUCONAZOLE 100 MG TABLET PO SCH (14:08)
[2019-06-12] MEDS: NORMAL SALINE 1000 ML 1,000 ML IV PRN (14:09)
[2019-06-13 05:18] LABS: ABSOLUTE BASOPHILS # (AUTO) 0.1 10^3/uL (0.0-0.2); ABSOLUTE LYMPHOCYTES (AUTO) 0.9 10^3/uL (0.5-4.7); ABSOLUTE MONOCYTES (AUTO) 0.2 10^3/uL (0.1-1.4); ABSOLUTE NEUT (AUTO) 10.3 10^3/uL (1.7-8.2); BASOPHILS % (AUTO) 0.6 % (0-2); HEMOGLOBIN 12.7 g/dL (12.0-15.5); LYMPHOCYTES % (AUTO) 8.2 % (13-45); MEAN CORPUSCULAR HEMOGLOBIN 29.5 pg (27.0-33.4); MEAN CORPUSCULAR HGB CONC 34.4 g/dL (32.0-36.0); MEAN CORPUSCULAR VOLUME 86 fl (80-97); MONOCYTES % (AUTO) 1.5 % (3-13); PLATELET COUNT 394 10^3/uL (150-450); RED BLOOD COUNT 4.32 10^6/uL (3.72-5.28); RED CELL DISTRIBUTION WIDTH 14.1 % (11.5-14.0); SEGMENTED NEUTROPHILS % (AUTO) 89.7 % (42-78); TOTAL CELLS COUNTED % (AUTO) 100 %; WHITE BLOOD COUNT 11.5 10^3/uL (4.0-10.5)
[2019-06-13] MEDS: MEROPENEM 500 MG in NORMAL SALINE 50 ML IV SCH ×3 (05:51→21:37)
[2019-06-13] MEDS: QUETIAPINE FUMARATE 100 MG TABLET PO SCH ×2 (05:52→17:26)
[2019-06-13] MEDS: INSULIN LISPRO 100 UNIT/ML 3 ML VIAL SUBCUT SCH ×4 (07:42→21:29)
[2019-06-13] MEDS: OXYCODONE-ACETAMINOPHEN 5-325 MG TABLET PO PRN ×3 (08:50→22:18)
[2019-06-13] MEDS: VANCOMYCIN HCL 1,000 MG in DEXTROSE 5%-WATER 250 ML IV SCH (08:50)
[2019-06-13] MEDS: DULOXETINE HCL 30 MG CAPSULE.DR PO SCH ×2 (09:00→21:38)
[2019-06-13] MEDS: OXCARBAZEPINE 150 MG TABLET PO SCH ×2 (09:00→21:39)
[2019-06-13] MEDS: HYDROXYCHLOROQUINE SULFATE 200 MG TABLET PO SCH ×2 (09:00→17:26)
[2019-06-13] MEDS: METHYLPREDNISOLONE INJ 40 MG/1 ML SDV IV SCH ×2 (09:00→21:39)
[2019-06-13] MEDS: FLUCONAZOLE 100 MG TABLET PO SCH (09:00)
[2019-06-13] MEDS: FOLIC ACID 1 MG TABLET PO SCH (09:00)
[2019-06-13] MEDS: ENOXAPARIN SODIUM INJ 40 MG/0.4 ML DISP.SYRIN SUBCUT SCH (09:01)
[2019-06-13] MEDS: FAMOTIDINE INJ/PF 20 MG/2 ML SDV IV SCH ×2 (09:01→21:38)
[2019-06-13] MEDS: DOCUSATE SODIUM 100 MG CAPSULE PO SCH (09:01)
[2019-06-13 09:27] LABS: VANCOMYCIN,TROUGH 13.2 ug/mL (5.0-20.0)
--- NOTE | 2019-06-13 13:24 | PDOC PROGRESS REPORT ---
Subjective Progress Note for:: 06/13/19 Reason For Visit: SEPSIS, PNEUMONIA, VASCULITIS, PHEUMATOID ARTHRITI 06/13/2019 Original problem for admission was new onset pneumonia, with comorbidities rheumatoid arthritis, vasculitis, sjorgens Physical Exam Vital Signs: Temp Pulse Resp BP Pulse Ox 98.8 F 69 16 170/84 H 93 06/13/19 08:00 06/13/19 11:50 06/13/19 11:50 06/13/19 08:00 06/13/19 11:50 Intake & Output 06/12/19 06/13/19 06/14/19 05:59 06:59 06:59 Intake Total 50 Balance 50 Weight General appearance: PRESENT: no acute distress Respiratory exam: PRESENT: clear to auscultation keri. ABSENT: rales, rhonchi, wheezes Cardiovascular exam: PRESENT: RRR. ABSENT: diastolic murmur, rubs, systolic murmur Neurological exam: PRESENT: alert, awake, oriented to person, oriented to place, oriented to time, oriented to situation, CN II-XII grossly intact. ABSENT: motor sensory deficit Psychiatric exam: PRESENT: appropriate affect, normal mood. ABSENT: homicidal ideation, suicidal ideation Results Laboratory Results: 06/13/19 04:15 06/11/19 18:53 06/13/19 04:15 WBC 11.5 H RBC 4.32 Hgb 12.7 Hct 37.0 MCV 86 MCH 29.5 MCHC 34.4 RDW 14.1 H Plt Count 394 Seg Neutrophils % 89.7 H 06/11/19 06/11/19 15:22 18:53 CK-MB (CK-2) < 0.22 Troponin I < 0.012 Impressions: Chest X-Ray 06/11/19 15:11 IMPRESSION: Ill-defined left lower lobe opacities compatible with pneumonia. Assessment and Plan - Diagnosis (1) Diabetes Is this a current diagnosis for this admission?: Yes (2) Pneumonia Qualifiers: Pneumonia type: due to unspecified organism Laterality: left Lung locatio n: lower lobe of lung Qualified Code(s): J18.9 - Pneumonia, unspecified organism Is this a current diagnosis for this admission?: Yes (3) Rheumatoid arthritis Qualifiers: Rheumatoid arthritis location: multiple sites Rheumatoid factor presence: unspecified presence Qualified Code(s): M06.9 - Rheumatoid arthritis, unspecified Is this a current diagnosis for this admission?: Yes (4) Sepsis Qualifiers: Sepsis type: sepsis due to unspecified organism Sepsis acute organ dysfunction status: with acute organ dysfunction Severe sepsis acute organ dysfunction type: unspecified Severe sepsis shock status: without septic shock Qualified Code(s): A41.9 - Sepsis, unspecified organism; R65.20 - Severe sepsis without septic shock Is this a current diagnosis for this admission?: Yes (5) Vasculitis Is this a current diagnosis for this admission?: Yes - Plan Summary Summary: Patient's home meds have been entered manually and more may need to be done once they are reconciled. Patient will be put on IV antibiotics. Patient was given 100 mg of solu Cortef tonight, have continued with Solu-Medrol every 12 hours. Patient does not appear to be septic or toxic. Told her that she will probably be here 3 to 5 days for IV antibiotics. She is agreeable to that She is medically stable to go to the floor 06/12/2019 Patient remains afebrile 98 4 pulse is regular at 92 blood pressure is stable 152/79 O2 sat 98% on room air Patient's white count slightly improved on admission 17.8 today is 15.4 Fingerstick blood sugar on admission was 378 today it is 172, even though she is on steroids Hemoglobin A1c was 8.7 lactic acid 2.0 Flu swab yesterday was negative Urine culture shows no growth in 1 day blood cultures are pending Patient is currently receiving vancomycin and meropenem, she has had no reaction to either antibiotic, Solu-Medrol daily 40 mg every 12 hours For her yeast underneath her breast tissue given her p.o. Diflucan which she is used in the past Would like to get her out of the hospital as soon as possible due to her mary rbidities. Admitting diagnosis is pneumonia 06/13/2019 Pulse is 69 oxygen saturation 99% on room air, hemoglobin A1c 8.7 White blood cell count on admission 17.8 went down to 15.4 and now at 11.5 Cultures negative x24 hours urine culture negative x24 hours Patient currently on vancomycin and meropenem Clinically patient is feeling much better will probably discharge her tomorrow - Time Time Spent with patient: 25-34 minutes
[2019-06-13] MEDS: NORMAL SALINE 1000 ML 1,000 ML IV PRN (13:56)
[2019-06-13] MEDS: VANCOMYCIN HCL 1,250 MG in DEXTROSE 5%-WATER 250 ML IV SCH (21:38)
[2019-06-14] MEDS: MEROPENEM 500 MG in NORMAL SALINE 50 ML IV SCH (05:43)
[2019-06-14] MEDS: NORMAL SALINE 1000 ML 1,000 ML IV PRN (05:44)
[2019-06-14] MEDS: QUETIAPINE FUMARATE 100 MG TABLET PO SCH (05:45)
[2019-06-14 06:20] LABS: ABSOLUTE BASOPHILS # (AUTO) 0.1 10^3/uL (0.0-0.2); ABSOLUTE LYMPHOCYTES (AUTO) 1.2 10^3/uL (0.5-4.7); ABSOLUTE MONOCYTES (AUTO) 0.3 10^3/uL (0.1-1.4); ABSOLUTE NEUT (AUTO) 9.5 10^3/uL (1.7-8.2); BASOPHILS % (AUTO) 0.6 % (0-2); EOSINOPHILS % (AUTO) 0.1 % (0-6); HEMATOCRIT 35.2 % (36.0-47.0); LYMPHOCYTES % (AUTO) 10.6 % (13-45); MEAN CORPUSCULAR HEMOGLOBIN 29.1 pg (27.0-33.4); MEAN CORPUSCULAR HGB CONC 34.1 g/dL (32.0-36.0); MEAN CORPUSCULAR VOLUME 85 fl (80-97); MONOCYTES % (AUTO) 2.4 % (3-13); PLATELET COUNT 411 10^3/uL (150-450); RED BLOOD COUNT 4.12 10^6/uL (3.72-5.28); RED CELL DISTRIBUTION WIDTH 13.9 % (11.5-14.0); SEGMENTED NEUTROPHILS % (AUTO) 86.3 % (42-78); TOTAL CELLS COUNTED % (AUTO) 100 %
[2019-06-14] MEDS: INSULIN LISPRO 100 UNIT/ML 3 ML VIAL SUBCUT SCH ×2 (08:00→12:43)
[2019-06-14] MEDS: OXCARBAZEPINE 150 MG TABLET PO SCH (10:31)
[2019-06-14] MEDS: DOCUSATE SODIUM 100 MG CAPSULE PO SCH ×2 (10:31→10:46)
[2019-06-14] MEDS: FOLIC ACID 1 MG TABLET PO SCH (10:31)
[2019-06-14] MEDS: HYDROXYCHLOROQUINE SULFATE 200 MG TABLET PO SCH (10:31)
[2019-06-14] MEDS: DULOXETINE HCL 30 MG CAPSULE.DR PO SCH (10:31)
[2019-06-14] MEDS: METHYLPREDNISOLONE INJ 40 MG/1 ML SDV IV SCH (10:31)
[2019-06-14] MEDS: VANCOMYCIN HCL 1,250 MG in DEXTROSE 5%-WATER 250 ML IV SCH (10:32)
[2019-06-14] MEDS: FLUCONAZOLE 100 MG TABLET PO SCH (10:32)
[2019-06-14] MEDS: FAMOTIDINE INJ/PF 20 MG/2 ML SDV IV SCH (10:32)
[2019-06-14] MEDS: ENOXAPARIN SODIUM INJ 40 MG/0.4 ML DISP.SYRIN SUBCUT SCH (10:45)
[2019-06-14] MEDS: OXYCODONE-ACETAMINOPHEN 5-325 MG TABLET PO PRN (12:44)
[2019-06-14 13:24] VITALS: BP 122/63
--- NOTE | 2019-06-14 13:25 | CDI QUERY ---
CDI Query CDI Review: Dear Provider: To better reflect your patients severity of illness, morbidity, and resource utilization Please specify and document in the Progress Notes and Discharge Summary if you are monitoring / treating / evaluating any of the following conditions: Query Clinical indicators Sepsis Sepsis ruled out SIRS 2/2 pneumonia Unable to determine Other ED Note: 06/11/19 17:55 Findings consistent with early sepsis. Lactate is 2.1. White count is 17.5. Transaminases mildly abnormal. Chemistry profile otherwise unremarkable. Patient has a left lower lobe infiltrate on chest x-ray. Oxygenation is normal. She was mildly tachycardic when she came in but her blood pressures been good. She is received fluid bolus and blood cultures were drawn. Urinalysis shows some pyuria. Patient was treated with IV Levaquin and vancomycin. She is also received a stress dose of Solu-Cortef. Nasal swab for influenza a and B are negative. Per Hospitalist Notes: (4) Sepsis Qualifiers: Sepsis type: sepsis due to unspecified organism Sepsis acute organ dysfunction status: with acute organ dysfunction Severe sepsis acute organ dysfunction type: unspecified Severe sepsis shock status: without septic shock Qualified Code(s): A41.9 - Sepsis, unspecified organism; R65.20 - Severe seps is without septic shock Is this a current diagnosis for this admission?: Yes Patient does not appear to be septic or toxic. Told her that she will probably be here 3 to 5 days for IV antibiotics Would like to get her out of the hospital as soon as possible due to her comorbidities. Admitting diagnosis is pneumonia The terms probable, suspected, likely, possible or still to be ruled out may be used if you are unable to determine the exact nature of a condition. Thank you, Clinical Documentation [facility]ician [facility] YANET Jones RN, BSN RN Office [phone] Office [phone]
--- NOTE | 2019-06-14 18:43 | PDOC DISCHARGE SUMMARY ---
Impression - Admit/DC Date/PCP Admission Date/Primary Care Provider: 06/11/19 18:17 TERRENCE SAMS MD Discharge Date: 06/14/19 - Discharge Diagnosis (1) Diabetes Is this a current diagnosis for this admission?: Yes (2) Pneumonia Is this a current diagnosis for this admission?: Yes (3) Rheumatoid arthritis Is this a current diagnosis for this admission?: Yes (4) Sepsis Is this a current diagnosis for this admission?: Yes (5) Vasculitis Is this a current diagnosis for this admission?: Yes - Assessment Summary: Patient's home meds have been entered manually and more may need to be done once they are reconciled. Patient will be put on IV antibiotics. Patient was given 100 mg of solu Cortef tonight, have continued with Solu-Medrol every 12 hours. Patient does not appear to be septic or toxic. Told her that she will probably be here 3 to 5 days for IV antibiotics. She is agreeable to that She is medically stable to go to the floor 06/12/2019 Patient remains afebrile 98 4 pulse is regular at 92 blood pressure is stable 152/79 O2 sat 98% on room air Patient's white count slightly improved on admission 17.8 today is 15.4 Fingerstick blood sugar on admission was 378 today it is 172, even though she is on steroids Hemoglobin A1c was 8.7 lactic acid 2.0 Flu swab yesterday was negative Urine culture shows no growth in 1 day blood cultures are pending Patient is currently receiving vancomycin and meropenem, she has had no reaction to either antibiotic, Solu-Medrol daily 40 mg every 12 hours For her yeast underneath her breast tissue given her p.o. Diflucan which she is used in the past Would like to get her out of the hospital as soon as possible due to her comorbidities. Admitting diagnosis is pneumonia 06/13/2019 Pulse is 69 oxygen saturation 99% on room air, hemoglobin A1c 8.7 White blood cell count on admission 17.8 went down to 15.4 and now at 11.5 Cultures negative x24 hours urine culture negative x24 hours Patient currently on vancomycin and meropenem Clinically patient is feeling much better will probably discharge her tomorrow 06/14/2019 She is feeling much better and asking to go home. Switch her over to clindamycin 300 mg 3 times daily to finish out her course and also sent her out on a Medrol Dosepak. She was admitted with left lower lobe pneumonia, diabetes ,sepsis ,vasculitis, rheumatoid arthritis, and sjorgens syndrome. I did not want to keep the patient in the hospital any longer than necessary due to her being somewhat immunocompromised. Patient is allergic to multiple antibiotics. She had just been on a course of doxycycline about a month earlier. Also many of her drugs that she takes for her connective tissue disease would interact with multiple antibiotics. At any rate at the time of discharge patient's white count is come down to 1 1,000 blood cultures are negative Prior to coming in the hospital patient was using insulin on a as needed basis and I told her that with her hemoglobin A1c being elevated she needs to be on a daily medication for her diabetes. She is to follow-up with her primary care provider within 5 to 7 days. She is medically stable for discharge - Additional Information Resuscitation Status: Do Not Resuscitate Discharge Diet: Diabetic Discharge Activity: Balance Activity w/Rest, Bedrest Referrals: TERRENCE SAMS MD [Primary Care Provider] - 06/17/19 3:15 pm Prescriptions: Clindamycin HCl 300 mg PO Q8 7 Days #21 capsule Methylprednisolone [Medrol Dosepack (4 mg/Tab) 21 Tab/Dosepak] 4 mg PO ASDIR PRN #21 tab.ds.pk PRN Reason: Home Medications: Aspirin [Aspirin 81 mg Chewable Tablet] 81 mg PO DAILY 06/02/13 Cevimeline HCl [Evoxac] 30 mg PO BID 06/02/13 Duloxetine HCl [Cymbalta 30 mg Capsule.dr] 60 mg PO BID 06/02/13 Simvastatin 40 mg PO DAILY 06/02/13 Gabapentin 300 mg PO Q4 06/08/13 Tizanidine HCl [Zanaflex] 2 mg PO BID 06/08/13 Hydromorphone HCl 4 mg PO BIDP PRN 09/26/15 Sertraline HCl 100 mg PO BID 09/26/15 Dronabinol [Marinol] 2.5 mg PO TIDP PRN 04/12/19 Folic Acid 1 mg PO DAILY 04/12/19 Hydroxychloroquine Sulfate [Plaquenil] 200 mg PO BID 04/12/19 Hydroxyzine HCl [Atarax 25 mg Tablet] 25 mg PO QIDP PRN 04/12/19 Insulin Aspart [Novolog Flexpen] 0 unit SUBCUT .SLD SCALE 04/12/19 Oxcarbazepine [Trileptal] 150 mg PO BID 04/12/19 Oxycodone Myristate [Xtampza ER] 36 mg PO BID 04/12/19 Quetiapine Fumarate [Seroquel 100 mg Tablet] 100 mg PO Q12 04/12/19 Telmisartan 20 mg PO DAILY 04/12/19 Methotrexate Sodium [Rheumatrex 2.5 mg Tablet] 10 mg PO TU 06/11/19 Acetaminophen [Tylenol 325 mg Tablet] 650 mg PO Q4HP PRN tablet 06/14/19 Clindamycin HCl 300 mg PO Q8 7 Days #21 capsule 06/14/19 Docusate Sodium [Colace 100 mg Capsule] 100 mg PO DAILY capsule 06/14/19 Duloxetine HCl [Cymbalta 30 mg Capsule.] 60 mg PO Q12 capsule. 06/14/19 Folic Acid [Folvite 1 mg Tablet] 1 mg PO DAILY tablet 06/14/19 Hydroxychloroquine Sulfate [Plaquenil 200 mg Tablet] 200 mg PO BID tablet 06/14/19 Insulin Lispro [Humalog Insulin (Lispro) 100 unit/mL] 0 - 12 unit SUBCUT ACHS unit 06/14/19 Methylprednisolone [Medrol Dosepack (4 mg/Tab) 21 Tab/Dosepak] 4 mg PO ASDIR PRN #21 tab.ds.pk 06/14/19 Oxcarbazepine [Trileptal 150 mg Tablet] 150 mg PO Q12 tablet 06/14/19 Quetiapine Fumarate [Seroquel 100 mg Tablet] 100 mg PO Q12H tablet 06/14/19 History of Present Illiness History of Present Illness: AARON REGAN is a 54 year old female comes in with a 2-day history of fever feeling tired and a dry cough. Patient states she has collagen vascular disease for 20 years now of rheumatoid arthritis vasculitis and sjorgens syndrome. However when patient started running a fever of 103 at home with the coughing she figured she should come in. This x-ray tonight shows a lower lobe pneumonia She has multiple drug allergies and also is on multiple chronic long-term medicines as well that have a QT interaction. It was decided that combination of meropenem and vancomycin would be the best choice, due to her multiple drug allergies as well as QT interactions. Patient was here less than a month ago with a UTI and was sent out on doxycycline at that time her white count was elevated, night is elevated but not significantly different than when she was here several weeks ago. In fact is lower tonight than it was several weeks ago tonight 17,800 platelets 381,000. Patient is seen here in town by a local cpo Dr. Romo and also goes to [facility] every couple of months is she has family in the area. Lactic acid is 2.1 Patient does not appear to be septic or toxic clinically. Physical Exam Vital Signs: Temp Pulse Resp BP Pulse Ox 98.5 F 61 18 122/63 98 06/14/19 13:15 06/14/19 13:15 06/14/19 13:15 06/14/19 13:15 06/14/19 13:15 Intake & Output 06/13/19 06/14/19 06/15/19 06:59 06:59 06:59 Intake Total 4168 250 Balance 4168 250 Weight 78.5 kg Results Laboratory Results: WBC 11.0 10^3/uL (4.0-10.5) H 06/14/19 05:08 RBC 4.12 10^6/uL (3.72-5.28) 06/14/19 05:08 Hgb 12.0 g/dL (12.0-15.5) 06/14/19 05:08 Hct 35.2 % (36.0-47.0) L 06/14/19 05:08 MCV 85 fl (80-97) 06/14/19 05:08 MCH 29.1 pg (27.0-33.4) 06/14/19 05:08 MCHC 34.1 g/dL (32.0-36.0) 06/14/19 05:08 RDW 13.9 % (11.5-14.0) 06/14/19 05:08 Plt Count 411 10^3/uL (150-450) 06/14/19 05:08 Lymph % (Auto) 10.6 % (13-45) L 06/14/19 05:08 Dent % (Auto) 2.4 % (3-13) L 06/14/19 05:08 Eos % (Auto) 0.1 % (0-6) 06/14/19 05:08 Baso % (Auto) 0.6 % (0-2) 06/14/19 05:08 Absolute Neuts (auto) 9.5 10^3/uL (1.7-8.2) H 06/14/19 05:08 Absolute Lymphs (auto) 1.2 10^3/uL (0.5-4.7) 06/14/19 05:08 Absolute Monos (auto) 0.3 10^3/uL (0.1-1.4) 06/14/19 05:08 Absolute Eos (auto) 0.0 10^3/uL (0.0-0.6) 06/14/19 05:08 Absolute Basos (auto) 0.1 10^3/uL (0.0-0.2) 06/14/19 05:08 Total Counted 100 06/12/19 04:11 Seg Neutrophils % 86.3 % (42-78) H 06/14/19 05:08 Seg Neuts % (Manual) 93 % (42-78) H 06/12/19 04:11 Lymphocytes % (Manual) 4 % (13-45) L 06/12/19 04:11 Monocytes % (Manual) 3 % (3-13) 06/12/19 04:11 Eosinophils % (Manual) 0 % (0-6) 06/12/19 04:11 Basophils % (Manual) 0 % (0-2) 06/12/19 04:11 Abs Neuts (Manual) 14.3 10^3/uL (1.7-8.2) H 06/12/19 04:11 Abs Lymphs (Manual) 0.6 10^3/uL (0.5-4.7) 06/12/19 04:11 Abs Monocytes (Manual) 0.5 10^3/uL (0.1-1.4) 06/12/19 04:11 Absolute Eos (Manual) 0.0 10^3/uL (0.0-0.6) 06/12/19 04:11 Abs Basophils (Manual) 0.0 10^3/uL (0.0-0.2) 06/12/19 04:11 Platelet Comment ADEQUATE 06/12/19 04:11 Anisocytosis SLIGHT 06/12/19 04:11 Tear Drop Cells SLIGHT 06/12/19 04:11 Ovalocytes 1+ 06/12/19 04:11 PT 13.4 SEC (11.4-15.4) 06/11/19 15:22 INR 1.02 06/11/19 15:22 VBG pH 7.40 (7.30-7.42) 06/11/19 15:22 VBG pCO2 41.7 mmHg (35-63) 06/11/19 15:22 VBG HCO3 25.3 mmol/L (20-32) 06/11/19 15:22 VBG Base Excess 0.3 mmol/L 06/11/19 15:22 Sodium 133.5 mmol/L (137-145) L 06/11/19 18:53 Potassium 4.1 mmol/L (3.6-5.0) 06/11/19 18:53 Chloride 101 mmol/L (98-107) 06/11/19 18:53 Carbon Dioxide 25 mmol/L (22-30) 06/11/19 18:53 Anion Gap 8 (5-19) 06/11/19 18:53 BUN 9 mg/dL (7-20) 06/11/19 18:53 Creatinine 0.54 mg/dL (0.52-1.25) 06/11/19 18:53 Est GFR ( Amer) > 60 (>60) 06/11/19 18:53 Est GFR (MDRD) Non-Af > 60 (>60) 06/11/19 18:53 Glucose 286 mg/dL (75-110) H 06/11/19 18:53 POC Glucose 151 mg/dL (70-110) H 06/14/19 11:51 Hemoglobin A1c % 8.7 % (4.7-6.0) H 06/12/19 04:11 Lactic Acid 2.0 mmol/L (0.7-2.1) 06/11/19 21:00 Calcium 8.8 mg/dL (8.4-10.2) 06/11/19 18:53 Total Bilirubin 0.6 mg/dL (0.2-1.3) 06/11/19 15:22 Direct Bilirubin 0.0 mg/dL (0.0-0.4) 06/11/19 15:22 Neonat Total Bilirubin Not Reportable 06/11/19 15:22 Neonat Direct Bilirubin Not Reportable 06/11/19 15:22 Neonat Indirect Bili Not Reportable 06/11/19 15:22 AST 61 U/L (14-36) H 06/11/19 15:22 ALT 59 U/L (<35) H 06/11/19 15:22 Alkaline Phosphatase 158 U/L (38-126) H 06/11/19 15:22 CK-MB (CK-2) < 0.22 ng/mL (<4.55) 06/11/19 18:53 Troponin I < 0.012 ng/mL 06/11/19 15:22 Total Protein 6.6 g/dL (6.3-8.2) 06/11/19 15:22 Albumin 3.9 g/dL (3.5-5.0) 06/11/19 15:22 Urine Color YELLOW 06/11/19 19:52 Urine Appearance CLEAR 06/11/19 19:52 Urine pH 7.0 (5.0-9.0) 06/11/19 19:52 Ur Specific [place] 1.014 06/11/19 19:52 Urine Protein NEGATIVE mg/dL (NEGATIVE) 06/11/19 19:52 Urine Glucose (UA) >=500 mg/dL (NEGATIVE) H 06/11/19 19:52 Urine Ketones NEGATIVE mg/dL (NEGATIVE) 06/11/19 19:52 Urine Blood NEGATIVE (NEGATIVE) 06/11/19 19:52 Urine Nitrite (Reflex) NEGATIVE (NEGATIVE) 06/11/19 19:52 Urine Bilirubin NEGATIVE (NEGATIVE) 06/11/19 19:52 Urine Urobilinogen NEGATIVE mg/dL (<2.0) 06/11/19 19:52 Leukocyte Esterase Rfl SMALL (NEGATIVE) H 06/11/19 19:52 Urine RBC (Auto) 1 /HPF 06/11/19 19:52 Urine WBC (Reflex) 16 /HPF 06/11/19 19:52 Squamous Epi Cells Auto 2 /HPF 06/11/19 19:52 U Non-Squamous Epis Auto 1 /HPF 06/11/19 19:52 Urine Mucus (Auto) FEW /LPF 06/11/19 19:52 Urine Ascorbic Acid NEGATIVE (NEGATIVE) 06/11/19 19:52 Time Trough Drawn 0852 06/13/19 08:52 Vancomycin Trough 13.2 ug/mL (5.0-20.0) 06/13/19 08:52 Influenza A (Rapid) NEGATIVE (NEGATIVE) 06/11/19 16:45 Influenza B (Rapid) NEGATIVE (NEGATIVE) 06/11/19 16:45 06/11/19 06/11/19 15:22 18:53 CK-MB (CK-2) < 0.22 Troponin I < 0.012 Impressions: Chest X-Ray 06/11/19 15:11 IMPRESSION: Ill-defined left lower lobe opacities compatible with pneumonia. Stroke Is this a Stroke Patient?: No Acute Heart Failure - Is this a Heart Failure Patient?: No
== END 2019-06-14 14:17 | disposition home or self-care (01) | DRG 195 ==
LOC: ER 14:49 → EH 18:17 → 4N 21:17
PROVIDERS: ADMIT Internal Medicine; ATTEND Internal Medicine
DX: J18.9 Pneumonia, unspecified organism (principal); M05.20 Rheumatoid vasculitis with rheumatoid arthritis of unspecified site; I10 Essential (primary) hypertension; E11.8 Type 2 diabetes mellitus with unspecified complications; M35.00 Sjogren syndrome, unspecified; B37.2 Candidiasis of skin and nail; Z79.899 Other long term (current) drug therapy; Z79.52 Long term (current) use of systemic steroids; Z79.82 Long term (current) use of aspirin; Z79.4 Long term (current) use of insulin; Z88.0 Allergy status to penicillin; Z88.2 Allergy status to sulfonamides; Z91.041 Radiographic dye allergy status
CPT/HCPCS: 36415; 71046; 80053; 80202; 81001; 82553; 82803; 82962; 83036; 83605; 84484; 85025; 85610; 87040; 87086; 87804; 93005; 93010; 96365; 96367; 96375; 99285; J1720; J1815; J1885; J1956; J2185; J2765; J2920; J3010; J3370; J3490; J7030; J7060; J7120; S0028

== ENCOUNTER → 2019-11-02 | Outpatient (CLI) | payer BC, MEDICARE, OTHER ==
[2019-11-02 17:28] LABS: APPEARANCE,URINE SLIGHTLY-CLOUDY; BILIRUBIN,URINE SMALL (NEGATIVE); COLOR,URINE AMBER; GLUCOSE, URINE 50 mg/dL (NEGATIVE); KETONES,URINE NEGATIVE (NEGATIVE); LEUKOCYTE ESTERASE,URINE SMALL (NEGATIVE); NITRITE,URINE NEGATIVE (NEGATIVE); PROTEIN,URINE 100 mg/dL (NEGATIVE); URINE SPECIFIC GRAVITY 1.029
[2019-11-02 17:44] LABS: ANION GAP 8 (5-19); BLOOD UREA NITROGEN 17 mg/dL (7-20); CALCIUM 10.1 mg/dL (8.4-10.2); CARBON DIOXIDE 29 mmol/L (22-30); CHLORIDE 102 mmol/L (98-107); GLUCOSE 172 mg/dL (75-110); POTASSIUM 4.7 mmol/L (3.6-5.0)
== END ==
LOC: OD 16:05
PROVIDERS: ATTEND Internal Medicine Nephrology
DX: I10 Essential (primary) hypertension (principal); E11.9 Type 2 diabetes mellitus without complications
CPT/HCPCS: 36415; 80048; 81001; 84100

== ENCOUNTER 2020-03-02 17:21 | Inpatient (IN) | payer BC, MEDICARE, OTHER ==
[2020-03-02] MEDS ORDERED: NORMAL SALINE 1000 ML 1,000 ML IV ONE (17:42)
--- NOTE | 2020-03-02 17:43 | ER Document Report ---
ED Medical Screen (RME) - General Stated Complaint: FEVER,NO TASTE OR SMELL SHORTNESS OF BREATH Time Seen by Provider: 03/02/20 17:35 Primary Care Provider: TERRENCE SAMS MD [Primary Care Provider] - Follow up as needed Notes: Patient presents with a 3-day history of difficulty breathing. Patient reports low-grade fever at home of 100.2. Patient states that she has had cough with some chest pain. Patient reports loss of smell. Patient has underlying history of RA, asthma, lupus, diabetes, Sjogren's. I have greeted and performed a rapid initial assessment of this patient. A comprehensive ED assessment and evaluation of the patient, analysis of test results and completion of the medical decision making process will be conducted by additional ED providers. TRAVEL OUTSIDE OF THE [place] IN LAST 30 DAYS: No - Related Data Allergies/Adverse Reactions: amoxicillin [Amoxicillin] Allergy (Severe, Verified 05/19/19 12:02) Anaphylaxis clarithromycin [From Biaxin] Allergy (Severe, Verified 05/19/19 12:02) Severe N&V eszopiclone [From Lunesta] Allergy (Severe, Verified 05/19/19 12:02) Hyperactivity Iodinated Contrast Media [IV Dye, Iodine Containing] Allergy (Severe, Verified 05/19/19 12:02) Anaphylaxis lamotrigine [From Lamictal] Allergy (Severe, Verified 05/19/19 12:02) SEVERE RASH INSIDE AND OUT lisinopril [Lisinopril] Allergy (Severe, Verified 05/19/19 12:02) Severe cough Penicillins Allergy (Severe, Verified 05/19/19 12:02) Anaphylaxis sulfamethoxazole [From Bactrim] Allergy (Unknown, Verified 05/19/19 12:02) trimethoprim [From Bactrim] Allergy (Unknown, Verified 05/19/19 12:02) Past Medical History - Past Medical History Cardiac Medical History: Reports: Hx Hypertension Denies: Hx Coronary Artery Disease, Hx Heart Attack Pulmonary Medical History: Reports: Hx Asthma Denies: Hx Bronchitis, Hx COPD, Hx Pneumonia Neurological Medical History: Reports: Hx Cerebrovascular Accident. Denies: Hx Seizures Endocrine Medical History: Reports: Hx Diabetes Mellitus Type 2 Renal/ Medical History: Denies: Hx Peritoneal Dialysis Musculoskeltal Medical History: Reports Hx Arthritis - Rheumatoid arthritis, lupus, vasculitis, Sjogren syndrome Psychiatric Medical History: Denies: Hx Depression Past Surgical History: Reports: Hx Appendectomy, Hx Breast Surgery, Hx Cholecystectomy, Hx Hysterectomy - Immunizations Hx Diphtheria, Pertussis, Tetanus Vaccination: No Physical Exam - Vital signs Vitals: Temp Pulse Resp BP Pulse Ox 98.5 F 118 H 18 138/83 H 99 03/02/20 17:29 03/02/20 17:29 03/02/20 17:29 03/02/20 17:29 03/02/20 17:29 - Respiratory Respiratory status: No respiratory distress Chest status: Tender, Pain with cough Breath sounds: Nonproductive cough - Cardiovascular Rhythm: Tachycardia Heart sounds: S1 appreciated, S2 appreciated Course - Vital Signs Vital signs: Temp Pulse Resp BP Pulse Ox 98.5 F 118 H 18 138/83 H 99 03/02/20 17:29 03/02/20 17:29 03/02/20 17:29 03/02/20 17:29 03/02/20 17:29 Doctor's Discharge - Discharge Referrals: TERRENCE SAMS MD [Primary Care Provider] - Follow up as needed
--- NOTE | 2020-03-02 18:33 | RADIOLOGY REPORT (SQ) ---
EXAM DESCRIPTION: CHEST SINGLE VIEW IMAGES COMPLETED DATE/TIME: 03/02/2020 6:19 pm REASON FOR STUDY: cp, cough COMPARISON: None. FLUOROSCOPY TIME: 0.2 minutes 1 images saved to PACS. TECHNIQUE: Intra-operative images acquired during surgical procedure to evaluate progress. NUMBER OF IMAGES: 1 LIMITATIONS: None. FINDINGS: Placement of venous access catheter. IMPRESSION: IMAGE(S) OBTAINED DURING PROCEDURE. COMMENT: Quality ID [id number]: Final reports for procedures using fluoroscopy that document radiation exp osure indices, or exposure time and number of fluorographic images (if radiation exposure indices are not available) Please consult full operative report of the attending physician for description of the procedure. TECHNICAL DOCUMENTATION: JOB ID: [id number] 2010 [employer]- All Rights Reserved Reading location - IP/workstation name: [email or web address]
[2020-03-02] MEDS ORDERED: HYDROMORPHONE HCL INJ/PF 2 MG/ML AMPULE IV ONE (18:58)
--- NOTE | 2020-03-02 19:47 | ER Document Report ---
ED General - General Chief Complaint: Shortness Of Breath Stated Complaint: FEVER,NO TASTE OR SMELL SHORTNESS OF BREATH Time Seen by Provider: 03/02/20 17:35 Notes: 54-year-old female with asthma history, residual pulmonary issues from prior [facility] admission in June, lupus, Sjogren's syndrome, rheumatoid arthritis, stroke, hypertension presents with approximately 2 days of shortness of breath, dry cough, loss of smell and taste, generalized malaise, fever. Patient also complaining of left-sided chest pain without radiation that feels like pressure that is worse with exertion and that patient has been experiencing intermittently for approximately months but worse over the last few days. Patient has not had any cardiac work-up recently and last stress was several years ago. Patient denies any sick contacts, productive cough, recent hospitalization, lower extremity edema, DVT/PE/hypercoagulability history, known CAD history, back pain, urinary symptoms, vomiting, diarrhea, abdominal pain TRAVEL OUTSIDE OF THE [place] IN LAST 30 DAYS: No - Related Data Allergies/Adverse Reactions: amoxicillin [Amoxicillin] Allergy (Severe, Verified 03/02/20 18:11) Anaphylaxis clarithromycin [From Biaxin] Allergy (Severe, Verified 03/02/20 18:11) Severe N&V eszopiclone [From Lunesta] Allergy (Severe, Verified 03/02/20 18:11) Hyperactivity Iodinated Contrast Media [IV Dye, Iodine Containing] Allergy (Severe, Verified 03/02/20 18:11) Anaphylaxis lamotrigine [From Lamictal] Allergy (Severe, Verified 03/02/20 18:11) SEVERE RASH INSIDE AND OUT lisinopril [Lisinopril] Allergy (Severe, Verified 03/02/20 18:11) Severe cough Penicillins Allergy (Severe, Verified 03/02/20 18:11) Anaphylaxis sulfamethoxazole [From Bactrim] Allergy (Unknown, Verified 03/02/20 18:11) trimethoprim [From Bactrim] Allergy (Unknown, Verified 03/02/20 18:11) Past Medical History - General Information source: Patient, [facility] Records - Social History Smoking Status: Never Smoker Chew tobacco use (# tins/day): No Frequency of alcohol use: None Drug Abuse: None Family History: Reviewed & Not Pertinent Patient has homicidal ideation: No - Past Medical History Cardiac Medical History: Reports: Hx Hypertension Denies: Hx Coronary Artery Disease, Hx Heart Attack Pulmonary Medical History: Reports: Hx Asthma Denies: Hx Bronchitis, Hx COPD, Hx Pneumonia Neurological Medical History: Reports: Hx Cerebrovascular Accident. Denies: Hx Seizures Endocrine Medical History: Reports: Hx Diabetes Mellitus Type 2 Renal/ Medical History: Denies: Hx Peritoneal Dialysis Musculoskeletal Medical History: Reports Hx Arthritis - Rheumatoid arthritis, lupus, vasculitis, Sjogren syndrome Psychiatric Medical History: Denies: Hx Depression Past Surgical History: Reports: Hx Appendectomy, Hx Breast Surgery, Hx Cholecystectomy, Hx Hysterectomy - Immunizations Hx Diphtheria, Pertussis, Tetanus Vaccination: No Review of Systems - Review of Systems Notes: REVIEW OF SYSTEMS: CONSTITUTIONAL : + fever, chills, or sweats. EENT: Denies recent cold/sinus symptoms, denies throat pain CARDIOVASCULAR: +chest pain, -LEXY RESPIRATORY: +cough, + shortness of breath. GASTROINTESTINAL: Denies abdominal pain, nausea/vomiting. GENITOURINARY: Denies difficulty urinating, painful urination. FEMALE GENITOURINARY: Denies abnormal vaginal bleeding, vaginal discharge. MUSCULOSKELETAL: Denies neck pain, back pain. SKIN: Denies rash or skin lesions. HEMATOLOGIC : Denies easy bruising or bleeding. LYMPHATIC: Denies swollen, enlarged glands. NEUROLOGICAL: Denies headache, denies change in gait. PSYCHIATRIC: Denies anxiety or stress or depression. Physical Exam - Vital signs Vitals: Temp 99.2 F 03/02/20 17:22 - Notes Notes: PHYSICAL EXAMINATION: GENERAL: Well-appearing, well-nourished middle-aged woman sitting up in stretcher in no acute distress. HEAD: Atraumatic, normocephalic. EYES: Pupils equal round and appropriate constriction, sclera anicteric, conjunctiva are normal. ENT: nares patent, mildly dry mucous membranes. NECK: Normal range of motion, supple without lymphadenopathy LUNGS: Breath sounds clear to auscultation bilaterally and equal. No wheezes rales or rhonchi. Mildly tachypneic, speaking in full sentences, no accessory muscle use HEART: Mildly tachycardic rate with regular rhythm without murmurs, rubs, or gallops ABDOMEN: Soft, nontender, no guarding, no masses, no CVAT EXTREMITIES: Normal range of motion, no pitting or edema. No cyanosis. No calf tenderness. NEUROLOGICAL: Awake, alert, conversing appropriately, moves all extremities spontaneously. PSYCH: Normal mood, normal affect. SKIN: Warm, Dry, normal turgor, no rashes or lesions noted. Course - Re-evaluation Re-evalutation: 03/02/20 22:26 Patient presenting with approximately 2 days of constellation of symptoms concerning for likely COVID-19 infection versus influenza versus other viral syndrome. Chest pain appears to be separate from these current symptoms and is concerning for possible angina in patient who has significant cardiac risk factors and the recent work-up with a heart score of 6. Patient's EKG shows no signs of acute ischemia, first troponin negative, and patient has no chest pain currently in the ED. Given patient's risk factors have presented patient to hospitalist who is accepted patient to telemetry observation for chest pain rule out. Patient otherwise has is mildly tachycardic but has no significant risk factors for PE other than having autoimmune disease which is associated with slightly higher risk, but pretest probability is still low so able to rule out PE with D-dimer which was negative. If patient's clinical picture should change during observation and need for additional imaging can be reevaluated. Patient's tachycardia most likely from mild dehydration from tachypnea and other insensible losses from her viral symptoms likely due to COVID-19 infection. Patient's respiratory status has been stable on room air, no signs of any impending respiratory failure. Patient discussed with Dr. Jimenez who has accepted patient to telemetry observation. - Vital Signs Vital signs: Temp Pulse Resp BP Pulse Ox 98.5 F 118 H 22 H 107/73 96 03/02/20 17:29 03/02/20 17:29 03/02/20 21:01 03/02/20 21:01 03/02/20 21:01 - Laboratory Result Diagrams: 03/02/20 20:10 03/02/20 20:10 Laboratory results interpreted by me: 03/02/20 03/02/20 20:10 20:10 WBC 13.8 H Absolute Neuts (auto) 10.6 H Potassium 3.5 L Glucose 147 H AST 43 H Alkaline Phosphatase 158 H - Diagnostic Test Radiology results interpreted by me: 03/02/20 22:28 Sinus rhythm, no significant ST elevations or depressions, nonspecific T wave abnormalities - EKG Interpretation by Me Additional EKG results interpreted by me: 03/03/20 02:08 Sinus rhythm, no significant ST elevations or depressions, equivocal nonfocal T wave abnormalities Discharge - Discharge Clinical Impression: Viral syndrome, Dehydration Chest pain Qualifiers: Chest pain type: unspecified Qualified Code(s): R07.9 - Chest pain, unspecified Disposition: ADMITTED OBSERVATION Admitting Provider: [facility] Admitted: Telemetry
[2020-03-02 20:45] LABS: ABSOLUTE BASOPHILS # (AUTO) 0.1 10^3/uL (0.0-0.2); ABSOLUTE EOSINOPHILS # (AUTO) 0.2 10^3/uL (0.0-0.6); ABSOLUTE LYMPHOCYTES (AUTO) 2.3 10^3/uL (0.5-4.7); ABSOLUTE MONOCYTES (AUTO) 0.6 10^3/uL (0.1-1.4); ABSOLUTE NEUT (AUTO) 10.6 10^3/uL (1.7-8.2); BASOPHILS % (AUTO) 0.6 % (0-2); EOSINOPHILS % (AUTO) 1.5 % (0-6); HEMATOCRIT 36.6 % (36.0-47.0); HEMOGLOBIN 12.3 g/dL (12.0-15.5); LYMPHOCYTES % (AUTO) 16.4 % (13-45); MEAN CORPUSCULAR HEMOGLOBIN 29.1 pg (27.0-33.4); MEAN CORPUSCULAR HGB CONC 33.6 g/dL (32.0-36.0); MEAN CORPUSCULAR VOLUME 86 fl (80-97); MONOCYTES % (AUTO) 4.6 % (3-13); PLATELET COUNT 413 10^3/uL (150-450); RED BLOOD COUNT 4.23 10^6/uL (3.72-5.28); RED CELL DISTRIBUTION WIDTH 13.7 % (11.5-14.0); SEGMENTED NEUTROPHILS % (AUTO) 76.9 % (42-78); TOTAL CELLS COUNTED % (AUTO) 100 %; VENOUS BLOOD PH 7.31 (7.30-7.42); WHITE BLOOD COUNT 13.8 10^3/uL (4.0-10.5)
[2020-03-02 21:06] LABS: ALBUMIN 4.3 g/dL (3.5-5.0); ALKALINE PHOSPHATASE 158 U/L (38-126); ANION GAP 9 (5-19); ASPARTATE AMINO TRANSFERASE 43 U/L (14-36); BILIRUBIN,DIRECT 0.2 mg/dL (0.0-0.4); BILIRUBIN,TOTAL 0.7 mg/dL (0.2-1.3); BLOOD UREA NITROGEN 14 mg/dL (7-20); CALCIUM 9.6 mg/dL (8.4-10.2); CARBON DIOXIDE 27 mmol/L (22-30); CHLORIDE 101 mmol/L (98-107); GLUCOSE 147 mg/dL (75-110); POTASSIUM 3.5 mmol/L (3.6-5.0); TOTAL PROTEIN 7.1 g/dL (6.3-8.2)
[2020-03-02] MEDS ORDERED: ACETAMINOPHEN 325 MG TABLET PO PRN (22:26)
[2020-03-02] MEDS ORDERED: ONDANSETRON HCL INJ/PF 4 MG/2 ML SDV IV PRN (22:26)
[2020-03-02] MEDS ORDERED: HYDRALAZINE HCL 25 MG TABLET PO PRN (22:34)
[2020-03-02] MEDS ORDERED: DEXTROSE 40% GEL 15 GM TUBE PO PRN ×2 (22:42)
[2020-03-02] MEDS ORDERED: DEXTROSE 50%-WATER 25 GM/50 ML DISP.SYRIN IV PRN ×2 (22:42)
[2020-03-02] MEDS ORDERED: GLUCAGON,HUMAN RECOMB 1 MG INJ IM PRN (22:42)
--- NOTE | 2020-03-02 23:03 | EKG REPORT ---
SEVERITY:- BORDERLINE ECG - SINUS RHYTHM BORDERLINE T ABNORMALITIES, DIFFUSE LEADS : Confirmed by: Roland Frank MD 02-Mar-2020 23:03:03
--- NOTE | 2020-03-02 23:13 | PDOC H&P ---
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 She states that the pain is aggravated by exertion and relieved with rest. Patient also endorses associated shortness of breath with exertion and for the p ast week she has been propping her head up when she sleeps. Associated with this for the past few days she has been having low-grade fever (she reports that she had a temperature of 100.3 at home today), chills, sore throat and reports that she has lost sense of smell and taste but denies any runny nose, congestion, nausea, vomiting, diarrhea. She states that she has a chronic cough and she has not noticed any significant change in the intensity of her cough recently. She denies any leg swelling, palpitation, dizziness. She states that she is status mostly at home and denies any recent sick contact history. Past Medical History Cardiac Medical History: Reports: Hypertension Denies: Coronary Artery Disease, Myocardial Infarction Pulmonary Medical History: Reports: Asthma Denies: Bronchitis, Chronic Obstructive Pulmonary Disease (COPD), Pneumonia Neurological Medical History: Reports: Migraine Denies: Seizures Endocrine Medical History: Reports: Diabetes Mellitus Type 2 Musculoskeltal Medical History: Reports: Arthritis - Rheumatoid arthritis, lupus, vasculitis, Sjogren syndrome Psychiatric Medical History: Denies: Depression Hematology: Denies: Anemia Past Surgical History Past Surgical History: Reports: Appendectomy, Cholecystectomy, Hysterectomy Social History Information Source: Patient Lives with: Family Smoking Status: Never Smoker Electronic Cigarette use?: No Frequency of Alcohol Use: None Hx Recreational Drug Use: No Drugs: None Hx Prescription Drug Abuse: No - Advance Directive Resuscitation Status: Full Code Family History Family History: Reviewed & Not Pertinent Parental Family History Reviewed: Yes Children Family History Reviewed: Yes Sibling(s) Family History Reviewed.: Yes Medication/Allergy Home Medications: Aspirin [Aspirin 81 mg Chewable Tablet] 81 mg PO DAILY 06/02/13 Cevimeline HCl [Evoxac] 30 mg PO BID 02/26/14 Duloxetine HCl [Cymbalta 30 mg Capsule.] 60 mg PO BID 06/02/13 Simvastatin 40 mg PO DAILY 06/02/13 Gabapentin 300 mg PO Q4 06/08/13 Tizanidine HCl [Zanaflex] 2 mg PO BID 06/08/13 Hydromorphone HCl 4 mg PO BIDP PRN 09/26/15 Sertraline HCl 100 mg PO BID 09/26/15 Dronabinol [Marinol] 2.5 mg PO TIDP PRN 04/12/19 Folic Acid 1 mg PO DAILY 04/12/19 Hydroxychloroquine Sulfate [Plaquenil] 200 mg PO BID 04/12/19 Hydroxyzine HCl [Atarax 25 mg Tablet] 25 mg PO QIDP PRN 04/12/19 Insulin Aspart [Novolog Flexpen] 0 unit SUBCUT .SLD SCALE 04/12/19 Oxcarbazepine [Trileptal] 150 mg PO BID 04/12/19 Oxycodone Myristate [Xtampza ER] 36 mg PO BID 04/12/19 Quetiapine Fumarate [Seroquel 100 mg Tablet] 100 mg PO Q12 04/12/19 Telmisartan 20 mg PO DAILY 04/12/19 Methotrexate Sodium [Rheumatrex 2.5 mg Tablet] 10 mg PO TU 06/11/19 Acetaminophen [Tylenol 325 mg Tablet] 650 mg PO Q4HP PRN tablet 06/14/19 Clindamycin HCl 300 mg PO Q8 7 Days #21 capsule 06/14/19 Docusate Sodium [Colace 100 mg Capsule] 100 mg PO DAILY capsule 06/14/19 Duloxetine HCl [Cymbalta 30 mg Capsule.] 60 mg PO Q12 capsule. 06/14/19 Folic Acid [Folvite 1 mg Tablet] 1 mg PO DAILY tablet 06/14/19 Hydroxychloroquine Sulfate [Plaquenil 200 mg Tablet] 200 mg PO BID tablet 06/14/19 Insulin Lispro [Humalog Insulin (Lispro) 100 unit/mL] 0 - 12 unit SUBCUT ACHS unit 06/14/19 Methylprednisolone [Medrol Dosepack (4 mg/Tab) 21 Tab/Dosepak] 4 mg PO ASDIR PRN #21 tab.ds.pk 06/14/19 Oxcarbazepine [Trileptal 150 mg Tablet] 150 mg PO Q12 tablet 06/14/19 Quetiapine Fumarate [Seroquel 100 mg Tablet] 100 mg PO Q12H tablet 06/14/19 Levofloxacin [Levaquin 750 mg Tablet] 750 mg PO DAILY #6 tablet 11/04/19 Allergies/Adverse Reactions: amoxicillin [Amoxicillin] Allergy (Severe, Verified 03/02/20 18:11) Anaphylaxis clarithromycin [From Biaxin] Allergy (Severe, Verified 03/02/20 18:11) Severe N&V eszopiclone [From Lunesta] Allergy (Severe, Verified 03/02/20 18:11) Hyperactivity Iodinated Contrast Media [IV Dye, Iodine Containing] Allergy (Severe, Verified 03/02/20 18:11) Anaphylaxis lamotrigine [From Lamictal] Allergy (Severe, Verified 03/02/20 18:11) SEVERE RASH INSIDE AND OUT lisinopril [Lisinopril] Allergy (Severe, Verified 03/02/20 18:11) Severe cough Penicillins Allergy (Severe, Verified 03/02/20 18:11) Anaphylaxis sulfamethoxazole [From Bactrim] Allergy (Unknown, Verified 03/02/20 18:11) trimethoprim [From Bactrim] Allergy (Unknown, Verified 03/02/20 18:11) Review of Systems Constitutional: PRESENT: as per HPI Eyes: ABSENT: visual disturbances Ears: ABSENT: hearing changes Nose, Mouth, and Throat: PRESENT: sore throat. ABSENT: as per HPI, headache(s), mouth pain, vertigo, other Cardiovascular: PRESENT: as per HPI Respiratory: PRESENT: as per HPI Gastrointestinal: ABSENT: abdominal pain, constipation, diarrhea, hematemesis, hematochezia, nausea, vomiting Genitourinary: ABSENT: dysuria, hematuria Musculoskeletal: ABSENT: joint swelling Integumentary: ABSENT: rash, wounds Neurological: ABSENT: abnormal gait, abnormal speech, confusion, dizziness, focal weakness, syncope Psychiatric: ABSENT: anxiety, depression, homidical ideation, suicidal ideation Endocrine: ABSENT: cold intolerance, heat intolerance, polydipsia, polyuria Hematologic/Lymphatic: ABSENT: easy bleeding, easy bruising Physical Exam Vital Signs: Temp Pulse Resp BP Pulse Ox 98.5 F 118 H 22 H 107/73 96 03/02/20 17:29 03/02/20 17:29 03/02/20 21:01 03/02/20 21:01 03/02/20 21:01 Intake & Output 03/01/20 03/02/20 03/03/20 06:59 06:59 06:59 Weight 73.9 kg Additional comments: GENERAL APPEARANCE: Alert and oriented x3, in no acute distress HEENT: Normocephalic and atraumatic. No scleral icterus. Moist oral mucosa NECK: Supple. No lymphadenopathy or tenderness. No carotid bruit. No JVD CHEST: Symmetric. Has reproducible chest pain around mid sternum area LUNGS: Clear with good air entry bilaterally. No wheezing or crackles HEART: Regular rate and rhythm with normal S1 and S2. No murmurs, gallops, or rubs. ABDOMEN: soft, active bowel sounds, no direct or rebound tenderness. No organomegaly detected. No CVA tenderness EXTREMITIES: No cyanosis, clubbing, or edema. MUSCULOSKELETAL: No deformity, atrophy or swelling noted PSYCHIATRIC: Recent and remote memory is intact. Appropriate mood and affect. SKIN: Warm, dry, and well perfused. No lesions or rashes are noted. NEUROLOGIC: No focal sensory or motor deficits are noted. Results Laboratory Results: 03/02/20 20:10 03/02/20 20:10 03/02/20 03/02/20 03/02/20 20:10 20:10 20:10 WBC 13.8 H RBC 4.23 Hgb 12.3 Hct 36.6 MCV 86 MCH 29.1 MCHC 33.6 RDW 13.7 Plt Count 413 Seg Neutrophils % 76.9 VBG pH 7.31 VBG pCO2 51.0 VBG HCO3 25.0 VBG Base Excess -2.0 Sodium 137.1 Potassium 3.5 L Chloride 101 Carbon Dioxide 27 Anion Gap 9 BUN 14 Creatinine 0.88 Est GFR ( Amer) > 60 Glucose 147 H Lactic Acid Calcium 9.6 Total Bilirubin 0.7 AST 43 H Alkaline Phosphatase 158 H Total Protein 7.1 Albumin 4.3 03/02/20 20:10 WBC RBC Hgb Hct MCV MCH MCHC RDW Plt Count Seg Neutrophils % VBG pH VBG pCO2 VBG HCO3 VBG Base Excess Sodium Potassium Chloride Carbon Dioxide Anion Gap BUN Creatinine Est GFR ( Amer) Glucose Lactic Acid 1.0 Calcium Total Bilirubin AST Alkaline Phosphatase Total Protein Albumin 03/02/20 20:10 Troponin I < 0.012 Impressions: Chest X-Ray 03/02/20 17:41 IMPRESSION: IMAGE(S) OBTAINED DURING PROCEDURE. Assessment and Plan - Diagnosis (1) Chest pain Qualifiers: Chest pain type: unspecified Qualified Code(s): R07.9 - Chest pain, unspecified Is this a current diagnosis for this admission?: Yes Plan: Patient presents with exertional chest pain which she describes as heaviness Pain is reproducible on physical exam Multifactorial including underlying vasculitis Patient is at intermediate risk per rafael Matilde risk stratification Heart score with 4 which is moderate risk Initial cardiac enzyme was negative EKG shows Q waves on inferior leads and nonspecific T wave changes which is unchanged from her previous study Continued on aspirin, statin Continue trending cardiac enzymes every 6 hourly x2 Requested proBNP Placed on telemetry (2) Suspected COVID-19 virus infection Is this a current diagnosis for this admission?: Yes Plan: Patient presents with fever, sore throat, anosmia and dysgeusia Has already been tested at the ER Currently saturating well on room air Continue supportive treatment for fever and possible shortness of breath Placed on enhanced airborne isolation Follow-up with COVID-19 test result (3) Diabetes Qualifiers: Diabetes mellitus type: type 2 Is this a current diagnosis for this admission?: Yes Plan: Placed on sliding scale insulin, Accu-Chek and hypoglycemia protocol On diabetic diet (4) Rheumatoid arthritis Qualifiers: Rheumatoid arthritis location: multiple sites Rheumatoid factor presence: unspecified presence Qualified Code(s): M06.9 - Rheumatoid arthritis, unspecified Is this a current diagnosis for this admission?: Yes Plan: Currently not on a flareup Continue methotrexate weekly, hydroxychloroquine, prednisone and folic acid at home dose (5) Vasculitis Is this a current diagnosis for this admission?: Yes Plan: Patient reports that she has a history of Sjogren's disease Currently stable and not on a flareup Continue medications as stated above under RA (6) Leukocytosis Is this a current diagnosis for this admission?: Yes Plan: WBC count was 13.8k on presentation Likely due to long-term steroid use patient is currently on prednisone 10 mg p.o. daily Blood culture obtained at the ED and follow-up with the result Continue monitoring CBC and for any sign of infection Will defer antibiotic treatment at this point - Time Time Spent with patient: 35 or more minutes Total Critical Time (Minutes): 40 Medications reviewed and adjusted accordingly: Yes Anticipated Discharge Disposition: Home, Self Care Anticipated Discharge Timeframe: within 48 hours - Inpatient Certification Based on my medical assessment, after consideration of the patient's comorbidities, presenting symptoms, or acuity I expect that the services needed warrant INPATIENT care.: Yes I certify that my determination is in accordance with my understanding of Medic are's requirements for reasonable and necessary INPATIENT services [42 CFR 412.3e].: Yes Medical Necessity: Need Close Monitoring Due to Risk of Patient Decompensation, Need For Continuous Telemetry Monitoring, Risk of Diagnosis Which Will Require Inpatient Eval/Care/Monitoring
[2020-03-03 01:38] LABS: A TYPE INFLUENZA AG NEGATIVE (NEGATIVE); B INFLUENZA AG NEGATIVE (NEGATIVE)
[2020-03-03] MEDS: GABAPENTIN 300 MG CAPSULE PO SCH ×5 (01:54→21:08)
[2020-03-03] MEDS: DULOXETINE HCL 30 MG CAPSULE.DR PO SCH ×3 (01:55→21:08)
[2020-03-03] MEDS: OXCARBAZEPINE 150 MG TABLET PO SCH ×3 (01:55→21:08)
[2020-03-03] MEDS: QUETIAPINE FUMARATE 100 MG TABLET PO SCH ×2 (01:55→10:04)
[2020-03-03] MEDS: PANTOPRAZOLE SODIUM 40 MG TABLET.DR PO SCH (05:59)
[2020-03-03] MEDS: INSULIN REG, HUMAN 100 UNIT/ML 3 ML VIAL (PYX) SUBCUT SCH ×4 (08:26→21:18)
[2020-03-03] MEDS ORDERED: MORPHINE SULFATE SR 30 MG TABLET PO SCH ×2 (10:00→14:15)
[2020-03-03] MEDS: ENOXAPARIN SODIUM INJ 40 MG/0.4 ML DISP.SYRIN SUBCUT SCH (10:03)
[2020-03-03] MEDS: ASPIRIN 81 MG TABLET, CHEWABLE PO SCH (10:04)
[2020-03-03] MEDS: HYDROXYCHLOROQUINE SULFATE 200 MG TABLET PO SCH ×2 (10:04→17:10)
[2020-03-03] MEDS: PREDNISONE 10 MG TABLET PO SCH (10:04)
[2020-03-03] MEDS: FOLIC ACID 1 MG TABLET PO SCH (10:05)
[2020-03-03] MEDS ORDERED: HYDROXYZINE PAMOATE 25 MG CAPSULE PO PRN (13:49)
[2020-03-03] MEDS ORDERED: MORPHINE SULFATE 30 MG PO SCH (14:00)
[2020-03-03] MEDS ORDERED: (PENDING PHARMACY ID) (Sertraline Hcl [Sertraline Hcl] 100 MG Tablet) PO SCH (14:00)
[2020-03-03] MEDS ORDERED: (PENDING PHARMACY ID) (Diclofenac Sodium [Diclofenac Sodium] 100 GM Gel..Gram.) TP SCH (14:00)
[2020-03-03] MEDS ORDERED: (PENDING PHARMACY ID) (Gabapentin [Gabapentin] 600 MG Tablet) PO SCH (14:00)
[2020-03-03] MEDS ORDERED: OXCARBAZEPINE 150 MG TABLET PO SCH (14:00)
[2020-03-03] MEDS ORDERED: CEVIMELINE HCL 30 MG PO SCH ×2 (14:00→15:00)
--- NOTE | 2020-03-03 14:04 | PDOC PROGRESS REPORT ---
Subjective Date:: 03/03/20 Subjective:: AARON REGAN is a 54 year old female with a history of multiple connective tissue diseases including rheumatoid arthritis, Sjogren's disease for which she is following up with her counselling psychologist, hyperlipidemia and diabetes Now presents to the ED reporting a 3 days duration of substernal chest pain which she describes as heaviness, intermittent lasting for about 1 to 2 minutes. She states that the pain is aggravated by exertion and relieved with rest. Patient also endorses associated shortness of breath with exertion and for the past week she has been propping her head up when she sleeps. Associated with this for the past few days she has been having low-grade fever (she reports that she had a temperature of 100.3 at home today), chills, sore throat and reports that she has lost sense of smell and taste but denies any runny nose, congestion, nausea, vomiting, diarrhea. She states that she has a chronic cough and she has not noticed any significant change in the intensity of her cough recently. She denies any leg swelling, palpitation, dizziness. She states that she is status mostly at home and denies any recent sick contact history. 03/03/2020. No acute events overnight. Patient still complaining of sharp chest pain worsened by cough and movement, denies any fever, chills, nausea, vomiting. Reason For Visit: CHEST PAIN, COVID-19 SUSPECT Physical Exam Vital Signs: Temp Pulse Resp BP Pulse Ox 98.5 F 118 H 22 H 121/98 H 98 03/02/20 17:29 03/02/20 17:29 03/03/20 12:30 03/03/20 12:30 03/03/20 08:31 Intake & Output 03/02/20 03/03/20 03/04/20 06:59 06:59 06:59 Intake Total 1000 Balance 1000 Weight 73.9 kg General appearance: PRESENT: obese Head exam: PRESENT: atraumatic, normocephalic Neck exam: ABSENT: carotid bruit, JVD, lymphadenopathy, thyromegaly Respiratory exam: PRESENT: clear to auscultation keri. ABSENT: rales, rhonchi, wheezes Cardiovascular exam: PRESENT: RRR. ABSENT: diastolic murmur, rubs, systolic murmur GI/Abdominal exam: PRESENT: normal bowel sounds, soft. ABSENT: distended, guarding, mass, organolmegaly, rebound, tenderness Musculoskeletal exam: PRESENT: tenderness - Exquisite tenderness over discharge specially on parasternal region. Neurological exam: PRESENT: alert, awake, oriented to person, oriented to place, oriented to time, oriented to situation, CN II-XII grossly intact. ABSENT: motor sensory deficit Results Laboratory Results: 03/02/20 20:10 03/02/20 20:10 03/02/20 03/02/20 03/02/20 20:10 20:10 20:10 WBC 13.8 H RBC 4.23 Hgb 12.3 Hct 36.6 MCV 86 MCH 29.1 MCHC 33.6 RDW 13.7 Plt Count 413 Seg Neutrophils % 76.9 VBG pH 7.31 VBG pCO2 51.0 VBG HCO3 25.0 VBG Base Excess -2.0 Sodium 137.1 Potassium 3.5 L Chloride 101 Carbon Dioxide 27 Anion Gap 9 BUN 14 Creatinine 0.88 Est GFR ( Amer) > 60 Glucose 147 H Lactic Acid Calcium 9.6 Total Bilirubin 0.7 AST 43 H Alkaline Phosphatase 158 H Total Protein 7.1 Albumin 4.3 03/02/20 20:10 WBC RBC Hgb Hct MCV MCH MCHC RDW Plt Count Seg Neutrophils % VBG pH VBG pCO2 VBG HCO3 VBG Base Excess Sodium Potassium Chloride Carbon Dioxide Anion Gap BUN Creatinine Est GFR ( Amer) Glucose Lactic Acid 1.0 Calcium Total Bilirubin AST Alkaline Phosphatase Total Protein Albumin 03/02/20 03/02/20 03/03/20 20:10 20:10 02:35 Troponin I < 0.012 < 0.012 NT-Pro-B Natriuret Pep 84 03/03/20 08:30 Troponin I < 0.012 NT-Pro-B Natriuret Pep Impressions: Chest X-Ray 03/02/20 17:41 IMPRESSION: IMAGE(S) OBTAINED DURING PROCEDURE. Assessment and Plan - Diagnosis (1) Pericarditis Qualifiers: Pericarditis type: associated with rheumatoid arthritis Chronicity: chronic Is this a current diagnosis for this admission?: Yes Plan: High risk of pericarditis given presentation and history heart to be to surgeon as patient has fibromyalgia, multiple rheumatological disorder COVID-19 i nfection. Patient has elevated inflammatory markers which at this cannot be too helpful given the history of multiple rheumatological disorder and COVID-19 infection. Elevated CRP. EKG negative for any acute changes. Troponins negative x3. Patient already on chronic steroid therapy, methotrexate. Patient was started on ibuprofen but noted to have worsening renal function. Patient is stating that she does have history of CKD. We will try on colchicine outpatient is not tolerating NSAIDs and already on methotrexate and chronic steroid therapy. We will also get 2D echo. (2) Leukocytosis Is this a current diagnosis for this admission?: Yes Plan: WBC count was 13.8k on presentation Likely due to long-term steroid use patient is currently on prednisone 10 mg p.o. daily Blood culture obtained at the ED and follow-up with the result Continue monitoring CBC and for any sign of infection Will defer antibiotic treatment at this point (3) Suspected COVID-19 virus infection Is this a current diagnosis for this admission?: Yes Plan: Patient presents with fever, sore throat, anosmia and dysgeusia Has already been tested at the ER Currently saturating well on room air Continue supportive treatment for fever and possible shortness of breath Placed on enhanced airborne isolation Follow-up with COVID-19 test result (4) Diabetes Qualifiers: Diabetes mellitus type: type 2 Is this a current diagnosis for this admission?: Yes Plan: Placed on sliding scale insulin, Accu-Chek and hypoglycemia protocol On diabetic diet (5) Rheumatoid arthritis Qualifiers: Rheumatoid arthritis location: multiple sites Rheumatoid factor presence: unspecified presence Qualified Code(s): M06.9 - Rheumatoid arthritis, unspecified Is this a current diagnosis for this admission?: Yes Plan: Currently not on a flareup Continue methotrexate weekly, hydroxychloroquine, prednisone and folic acid at home dose (6) Vasculitis Is this a current diagnosis for this admission?: Yes Plan: Patient reports that she has a history of Sjogren's disease Currently stable and not on a flareup Continue medications as stated above under RA (7) Depression Is this a current diagnosis for this admission?: Yes Plan: Denies any homicidal or suicidal ideation. Resume home meds. Outpatient PCP and psychiatry follow-up. (8) Obesity Is this a current diagnosis for this admission?: Yes Plan: BMI 29.8. Diet and lifestyle modification recommended. (9) Chest pain Qualifiers: Chest pain type: unspecified Qualified Code(s): R07.9 - Chest pain, unspecified Is this a current diagnosis for this admission?: Yes Plan: as per problem #1. - Time Time Spent with patient: 25-34 minutes Anticipated Discharge Disposition: Home with Home Health Anticipated Discharge Timeframe: within 48 hours
[2020-03-03] MEDS ORDERED: (PENDING PHARMACY ID) (Diclofenac Sodium [Diclofenac Sodium] 100 GM Gel..Gram.) TOP SCH (15:00)
[2020-03-03] MEDS ORDERED: LIDOCAINE 5% (700 MG) TRANSDERMAL ADH..PATCH TP SCH (15:00)
[2020-03-03] MEDS: MORPHINE SULFATE SR 30 MG TABLET PO SCH ×2 (15:42→21:08)
[2020-03-03] MEDS: LIDOCAINE 5% (700 MG) TRANSDERMAL ADH..PATCH TP SCH (15:43)
[2020-03-03] MEDS ORDERED: IBUPROFEN 800 MG TABLET PO SCH (17:00)
[2020-03-03] MEDS: OMEGA-3 ACID ETHYL ESTERS 1 GM CAPSULE PO SCH (17:10)
[2020-03-03] MEDS ORDERED: DHA PO SCH (18:00)
[2020-03-03] MEDS ORDERED: EPA PO SCH (18:00)
[2020-03-03] MEDS ORDERED: HYDROXYCHLOROQUINE SULFATE 200 MG TABLET PO SCH (18:00)
[2020-03-03] MEDS ORDERED: [UNRECOGNIZED DRUG - OTHER] PO SCH (18:00)
[2020-03-03] MEDS ORDERED: FISH OIL PO SCH (18:00)
[2020-03-03] MEDS ORDERED: OMEGA PO SCH (18:00)
[2020-03-03] MEDS: HYDROXYZINE PAMOATE 25 MG CAPSULE PO SCH (21:08)
[2020-03-03] MEDS: ATORVASTATIN CALCIUM 80 MG TABLET PO SCH (21:08)
[2020-03-03] MEDS ORDERED: (PENDING PHARMACY ID) (Rosuvastatin Calcium [Crestor] 40 MG Tablet) PO SCH (22:00)
[2020-03-03] MEDS ORDERED: ATORVASTATIN CALCIUM 40 MG TABLET PO SCH (22:00)
[2020-03-04 05:51] LABS: ABSOLUTE BASOPHILS # (AUTO) 0.1 10^3/uL (0.0-0.2); ABSOLUTE EOSINOPHILS # (AUTO) 0.2 10^3/uL (0.0-0.6); ABSOLUTE LYMPHOCYTES (AUTO) 2.6 10^3/uL (0.5-4.7); ABSOLUTE MONOCYTES (AUTO) 0.9 10^3/uL (0.1-1.4); ABSOLUTE NEUT (AUTO) 5.3 10^3/uL (1.7-8.2); BASOPHILS % (AUTO) 1.1 % (0-2); EOSINOPHILS % (AUTO) 2.1 % (0-6); HEMATOCRIT 33.2 % (36.0-47.0); HEMOGLOBIN 11.1 g/dL (12.0-15.5); LYMPHOCYTES % (AUTO) 28.2 % (13-45); MEAN CORPUSCULAR HEMOGLOBIN 29.3 pg (27.0-33.4); MEAN CORPUSCULAR HGB CONC 33.5 g/dL (32.0-36.0); MEAN CORPUSCULAR VOLUME 88 fl (80-97); MONOCYTES % (AUTO) 9.9 % (3-13); PLATELET COUNT 412 10^3/uL (150-450); RED BLOOD COUNT 3.79 10^6/uL (3.72-5.28); RED CELL DISTRIBUTION WIDTH 13.5 % (11.5-14.0); SEGMENTED NEUTROPHILS % (AUTO) 58.7 % (42-78); TOTAL CELLS COUNTED % (AUTO) 100 %; WHITE BLOOD COUNT 9.1 10^3/uL (4.0-10.5)
[2020-03-04] MEDS: MORPHINE SULFATE SR 30 MG TABLET PO SCH (06:02)
[2020-03-04] MEDS: GABAPENTIN 300 MG CAPSULE PO SCH ×6 (06:02→21:50)
[2020-03-04] MEDS: PANTOPRAZOLE SODIUM 40 MG TABLET.DR PO SCH (06:02)
[2020-03-04 06:05] LABS: ALBUMIN 3.7 g/dL (3.5-5.0); ALKALINE PHOSPHATASE 109 U/L (38-126); ANION GAP 8 (5-19); ASPARTATE AMINO TRANSFERASE 18 U/L (14-36); BILIRUBIN,DIRECT 0.2 mg/dL (0.0-0.4); BILIRUBIN,TOTAL 0.3 mg/dL (0.2-1.3); BLOOD UREA NITROGEN 27 mg/dL (7-20); CALCIUM 9.6 mg/dL (8.4-10.2); CARBON DIOXIDE 26 mmol/L (22-30); CHLORIDE 106 mmol/L (98-107); GLUCOSE 199 mg/dL (75-110); TOTAL PROTEIN 6.3 g/dL (6.3-8.2)
[2020-03-04] MEDS: INSULIN REG, HUMAN 100 UNIT/ML 3 ML VIAL (PYX) SUBCUT SCH ×4 (08:28→23:54)
[2020-03-04] MEDS ORDERED: SIMVASTATIN 40 MG TABLET PO SCH (10:00)
[2020-03-04] MEDS ORDERED: TELMISARTAN 40 MG PO SCH (10:00)
[2020-03-04] MEDS ORDERED: COLCHICINE 0.6 MG TABLET PO ONE (10:34)
[2020-03-04] MEDS: FENTANYL CITRATE INJ/PF 100 MCG/2 ML AMPUL IV PRN ×2 (11:22→20:03)
[2020-03-04] MEDS: LIDOCAINE 5% (700 MG) TRANSDERMAL ADH..PATCH TP SCH (11:24)
[2020-03-04] MEDS: ENOXAPARIN SODIUM INJ 40 MG/0.4 ML DISP.SYRIN SUBCUT SCH (11:24)
[2020-03-04] MEDS: HYDROXYCHLOROQUINE SULFATE 200 MG TABLET PO SCH ×2 (11:24→17:51)
[2020-03-04] MEDS: PREDNISONE 10 MG TABLET PO SCH (11:25)
[2020-03-04] MEDS: SERTRALINE HCL 50 MG TABLET PO SCH (11:25)
[2020-03-04] MEDS: ASPIRIN 81 MG TABLET, CHEWABLE PO SCH (11:25)
[2020-03-04] MEDS: OXCARBAZEPINE 150 MG TABLET PO SCH ×2 (11:25→21:50)
[2020-03-04] MEDS: OMEGA-3 ACID ETHYL ESTERS 1 GM CAPSULE PO SCH ×2 (11:26→17:47)
[2020-03-04] MEDS: LOSARTAN POTASSIUM 50 MG TABLET PO SCH (11:26)
[2020-03-04] MEDS: DULOXETINE HCL 30 MG CAPSULE.DR PO SCH ×2 (11:26→21:50)
[2020-03-04] MEDS: FOLIC ACID 1 MG TABLET PO SCH (11:28)
--- NOTE | 2020-03-04 11:28 | PDOC PROGRESS REPORT ---
Subjective Date:: 03/04/20 Subjective:: AARON REGAN is a 54 year old female with a history of multiple connective tissue diseases including rheumatoid arthritis, Sjogren's disease for which she is following up with her outreach associate, hyperlipidemia and diabetes Now presents to the ED reporting a 3 days duration of substernal chest pain which she describes as heaviness, intermittent lasting for about 1 to 2 minutes. She states that the pain is aggravated by exertion and relieved with rest. Patient also endorses associated shortness of breath with exertion and for the past week she has been propping her head up when she sleeps. Associated with this for the past few days she has been having low-grade fever (she reports that she had a temperature of 100.3 at home today), chills, sore throat and reports that she has lost sense of smell and taste but denies any runny nose, congestion, nausea, vomiting, diarrhea. She states that she has a chronic cough and she has not noticed any significant change in the intensity of her cough recently. She denies any leg swelling, palpitation, dizziness. She states that she is status mostly at home and denies any recent sick contact history. 03/03/2020. No acute events overnight. Patient still complaining of sharp chest pain worsened by cough and movement, denies any fever, chills, nausea, vomiting. 03/04/2020. No acute events overnight, patient is still complaining of not being able to sleep much, still complaining of generalized aches and pains and chest pain worse on laying supine and better on sleeping on the side, denies any fever, chills, nausea, vomiting, diarrhea, constipation or any urinary symptoms. Reason For Visit: CHEST PAIN, COVID-19 SUSPECT Physical Exam Vital Signs: Temp Pulse Resp BP Pulse Ox 98.2 F 82 16 92/64 L 95 03/04/20 07:53 03/04/20 07:53 03/04/20 07:53 03/04/20 07:53 03/04/20 07:53 Intake & Output 03/03/20 03/04/20 03/05/20 06:59 06:59 06:59 Intake Total 1000 440 Balance 1000 440 Weight 73.9 kg 74.6 kg General appearance: PRESENT: no acute distress, obese, well-developed, well- nourished, other - Appears to be uncomfortable and in pain. Head exam: PRESENT: atraumatic, normocephalic Respiratory exam: PRESENT: clear to auscultation keri, other - Exquisite tenderness on palpation worse on bilateral parasternal regions.. ABSENT: rales, rhonchi, wheezes Cardiovascular exam: PRESENT: RRR. ABSENT: diastolic murmur, rubs, systolic murmur GI/Abdominal exam: PRESENT: normal bowel sounds, soft. ABSENT: distended, guarding, mass, organolmegaly, rebound, tenderness Musculoskeletal exam: PRESENT: tenderness - Generalized. Neurological exam: PRESENT: alert, awake, oriented to person, oriented to place, oriented to time, oriented to situation, CN II-XII grossly intact. ABSENT: motor sensory deficit Skin exam: PRESENT: dry, intact, warm. ABSENT: cyanosis, rash Results Laboratory Results: 03/04/20 04:50 03/04/20 04:50 03/03/20 03/04/20 03/04/20 08:30 04:50 04:50 WBC 9.1 RBC 3.79 Hgb 11.1 L Hct 33.2 L MCV 88 MCH 29.3 MCHC 33.5 RDW 13.5 Plt Count 412 Seg Neutrophils % 58.7 Sodium 139.6 Potassium 4.0 Chloride 106 Carbon Dioxide 26 Anion Gap 8 BUN 27 H Creatinine 1.31 H Est GFR ( Amer) 51 L Glucose 199 H Calcium 9.6 Magnesium 2.5 H Total Bilirubin 0.3 AST 18 Alkaline Phosphatase 109 C-Reactive Protein 69.7 H Total Protein 6.3 Albumin 3.7 03/02/20 20:10 Blood Blood Culture (PCR) - Final Staphylococcus Species 03/02/20 03/02/20 03/03/20 20:10 20:10 02:35 Troponin I < 0.012 < 0.012 NT-Pro-B Natriuret Pep 84 03/03/20 08:30 Troponin I < 0.012 NT-Pro-B Natriuret Pep Impressions: Chest X-Ray 03/02/20 17:41 IMPRESSION: IMAGE(S) OBTAINED DURING PROCEDURE. Assessment and Plan - Diagnosis (1) Pericarditis Qualifiers: Pericarditis type: associated with rheumatoid arthritis Chronicity: chronic Is this a current diagnosis for this admission?: Yes Plan: High risk of pericarditis given presentation and history heart to be to surgeon as patient has fibromyalgia, multiple rheumatological disorder COVID-19 infection. Patient has elevated inflammatory markers which at this cannot be too helpful given the history of multiple rheumatological disorder and COVID-19 infection. Elevated CRP. EKG negative for any acute changes. Troponins negative x3. Patient already on chronic steroid therapy, methotrexate. Patient was started on ibuprofen but noted to have worsening renal function. Patient is stating that she does have history of CKD. We will try on colchicine outpatient is not tolerating NSAIDs and already on methotrexate and chronic steroid therapy. We will also get 2D echo. (2) Leukocytosis Is this a current diagnosis for this admission?: Yes Plan: Resolved, WBC count was 13.8k on presentation Likely due to long-term steroid use patient is currently on prednisone 10 mg p.o. daily Blood culture obtained at the ED and follow-up with the result Continue monitoring CBC and for any sign of infection Will defer antibiotic treatment at this point (3) Suspected COVID-19 virus infection Is this a current diagnosis for this admission?: Yes Plan: Patient presents with fever, sore throat, anosmia and dysgeusia Has already been tested at the ER Currently saturating well on room air Continue supportive treatment for fever and possible shortness of breath Placed on enhanced airborne isolation Follow-up with COVID-19 test result (4) Diabetes Qualifiers: Diabetes mellitus type: type 2 Is this a current diagnosis for this admission?: Yes Plan: Placed on sliding scale insulin, Accu-Chek and hypoglycemia protocol On diabetic diet (5) Rheumatoid arthritis Qualifiers: Rheumatoid arthritis location: multiple sites Rheumatoid factor presence: unspecified presence Qualified Code(s): M06.9 - Rheumatoid arthritis, unspecified Is this a current diagnosis for this admission?: Yes Plan: Currently not on a flareup Continue methotrexate weekly, hydroxychloroquine, prednisone and folic acid at home dose (6) Vasculitis Is this a current diagnosis for this admission?: Yes Plan: Patient reports that she has a history of Sjogren's disease Currently stable and not on a flareup Continue medications as stated above under RA (7) Depression Is this a current diagnosis for this admission?: Yes Plan: Denies any homicidal or suicidal ideation. Resume home meds. Outpatient PCP and psychiatry follow-up. (8) Obesity Is this a current diagnosis for this admission?: Yes Plan: BMI 29.8. Diet and lifestyle modification recommended. (9) Chest pain Qualifiers: Chest pain type: unspecified Qualified Code(s): R07.9 - Chest pain, u nspecified Is this a current diagnosis for this admission?: Yes Plan: as per problem #1. (10) Fibromyalgia Is this a current diagnosis for this admission?: Yes Plan: Resume home meds. Supportive measures. - Time Time Spent with patient: 35 or more minutes Anticipated Discharge Disposition: Home, Self Care Anticipated Discharge Timeframe: within 48 hours
[2020-03-04] MEDS: NORMAL SALINE 1000 ML 1,000 ML IV PRN ×2 (15:00→20:03)
[2020-03-04] MEDS: ATORVASTATIN CALCIUM 80 MG TABLET PO SCH (21:50)
[2020-03-04] MEDS: HYDROXYZINE PAMOATE 25 MG CAPSULE PO SCH (21:50)
[2020-03-05] MEDS ORDERED: CALCIUM CARBONATE 500 MG TAB.CHEW PO PRN (01:00)
[2020-03-05] MEDS ORDERED: ONDANSETRON HCL INJ/PF 4 MG/2 ML SDV IV PRN (01:01)
[2020-03-05] MEDS: PANTOPRAZOLE SODIUM 40 MG TABLET.DR PO SCH (05:11)
[2020-03-05] MEDS: GABAPENTIN 300 MG CAPSULE PO SCH ×5 (05:11→21:58)
[2020-03-05] MEDS: FENTANYL CITRATE INJ/PF 100 MCG/2 ML AMPUL IV PRN ×3 (05:12→21:58)
[2020-03-05] MEDS: NORMAL SALINE 1000 ML 1,000 ML IV PRN ×2 (05:12→23:30)
[2020-03-05 05:46] LABS: ANION GAP 8 (5-19); BLOOD UREA NITROGEN 21 mg/dL (7-20); CALCIUM 8.5 mg/dL (8.4-10.2); CARBON DIOXIDE 25 mmol/L (22-30); CHLORIDE 106 mmol/L (98-107); GLUCOSE 200 mg/dL (75-110); POTASSIUM 3.5 mmol/L (3.6-5.0)
[2020-03-05] MEDS: INSULIN REG, HUMAN 100 UNIT/ML 3 ML VIAL (PYX) SUBCUT SCH ×4 (09:23→21:58)
[2020-03-05] MEDS: COLCHICINE 0.6 MG TABLET PO SCH (09:41)
[2020-03-05] MEDS: LOSARTAN POTASSIUM 50 MG TABLET PO SCH (09:41)
[2020-03-05] MEDS: OMEGA-3 ACID ETHYL ESTERS 1 GM CAPSULE PO SCH ×2 (09:42→17:04)
[2020-03-05] MEDS: SERTRALINE HCL 50 MG TABLET PO SCH (09:42)
[2020-03-05] MEDS: FOLIC ACID 1 MG TABLET PO SCH (09:42)
[2020-03-05] MEDS: PREDNISONE 10 MG TABLET PO SCH (09:42)
[2020-03-05] MEDS: ASPIRIN 81 MG TABLET, CHEWABLE PO SCH (09:42)
[2020-03-05] MEDS: DULOXETINE HCL 30 MG CAPSULE.DR PO SCH ×2 (09:42→21:58)
[2020-03-05] MEDS: OXCARBAZEPINE 150 MG TABLET PO SCH ×2 (09:42→21:58)
[2020-03-05] MEDS: ENOXAPARIN SODIUM INJ 40 MG/0.4 ML DISP.SYRIN SUBCUT SCH (09:43)
--- NOTE | 2020-03-05 10:36 | PDOC PROGRESS REPORT ---
Subjective Date:: 03/05/20 Subjective:: AARON REGAN is a 54 year old female with a history of multiple connective tissue diseases including rheumatoid arthritis, Sjogren's disease for which she is following up with her pickle cutter, hyperlipidemia and diabetes Now presents to the ED reporting a 3 days duration of substernal chest pain which she describes as heaviness, intermittent lasting for about 1 to 2 minutes. She states that the pain is aggravated by exertion and relieved with rest. Patient also endorses associated shortness of breath with exertion and for the past week she has been propping her head up when she sleeps. Associated with this for the past few days she has been having low-grade fever (she reports that she had a temperature of 100.3 at home today), chills, sore throat and reports that she has lost sense of smell and taste but denies any runny nose, congestion, nausea, vomiting, diarrhea. She states that she has a chronic cough and she has not noticed any significant change in the intensity of her cough recently. She denies any leg swelling, palpitation, dizziness. She states that she is status mostly at home and denies any recent sick contact history. 03/03/2020. No acute events overnight. Patient still complaining of sharp chest pain worsened by cough and movement, denies any fever, chills, nausea, vomiting. 03/04/2020. No acute events overnight, patient is still complaining of not being able to sleep much, still complaining of generalized aches and pains and chest pain worse on laying supine and better on sleeping on the side, denies any fever, chills, nausea, vomiting, diarrhea, constipation or any urinary symptoms. 03/05/2020. No acute events overnight. Patient complaining of generalized musculoskeletal pain worse in her back, however stating that her chest pain has significantly improved especially on the right side since being a started on colchicine, denies any fever, chills, nausea, vomiting, diarrhea or constipation. Reason For Visit: CHEST PAIN, COVID-19 SUSPECT Physical Exam Vital Signs: Temp Pulse Resp BP Pulse Ox 97.6 F 78 24 H 183/99 H 98 03/05/20 07:41 03/05/20 07:41 03/05/20 07:41 03/05/20 07:41 03/05/20 07:41 Intake & Output 1103/05/20 03/06/20 06:59 06:59 06:59 Intake Total 440 1978 Balance 440 1979 Weight 74.6 kg 74.4 kg General appearance: PRESENT: mild distress, obese Head exam: PRESENT: atraumatic, normocephalic Respiratory exam: PRESENT: clear to auscultation keri. ABSENT: rales, rhonchi, wheezes Cardiovascular exam: PRESENT: RRR, other - Left parasternal tenderness. ABSENT: diastolic murmur, rubs, systolic murmur GI/Abdominal exam: PRESENT: normal bowel sounds, soft. ABSENT: distended, guarding, mass, organolmegaly, rebound, tenderness Extremities exam: PRESENT: full ROM. ABSENT: calf tenderness, clubbing, pedal edema Musculoskeletal exam: PRESENT: tenderness - Generalized musculoskeletal point tenderness Neurological exam: PRESENT: alert, awake, oriented to person, oriented to place, oriented to time, oriented to situation, CN II-XII grossly intact. ABSENT: motor sensory deficit Results Laboratory Results: 03/04/20 04:50 03/05/20 04:45 03/05/20 04:45 Sodium 139.1 Potassium 3.5 L Chloride 106 Carbon Dioxide 25 Anion Gap 8 BUN 21 H Creatinine 0.93 Est GFR ( Amer) > 60 Glucose 200 H Calcium 8.5 03/02/20 20:10 Blood Blood Culture (PCR) - Final Staphylococcus Species 03/02/20 03/02/20 03/03/20 20:10 20:10 02:35 Troponin I < 0.012 < 0.012 NT-Pro-B Natriuret Pep 84 03/03/20 08:30 Troponin I < 0.012 NT-Pro-B Natriuret Pep Impressions: Chest X-Ray 03/02/20 17:41 IMPRESSION: IMAGE(S) OBTAINED DURING PROCEDURE. Assessment and Plan - Diagnosis (1) Pericarditis Qualifiers: Pericarditis type: associated with rheumatoid arthritis Chronicity: chronic Is this a current diagnosis for this admission?: Yes Plan: Improved. Reporting resolution of right-sided chest pain, still complaining of left-sided pleuritic chest pain. High risk of pericarditis given presentation and history heart to be to surgeon as patient has fibromyalgia, multiple rheumatological disorder COVID-19 infec tion. Patient has elevated inflammatory markers which at this cannot be too helpful given the history of multiple rheumatological disorder and COVID-19 infection. Elevated CRP. EKG negative for any acute changes. Troponins negative x3. Patient already on chronic steroid therapy, methotrexate. Patient was started on ibuprofen but noted to have worsening renal function. Patient is stating that she does have history of CKD. Not tolerating NSAIDs and already on methotrexate and chronic steroid therapy. Continue colchicine. Pending 2D echo. (2) Leukocytosis Is this a current diagnosis for this admission?: Yes Plan: Resolved, WBC count was 13.8k on presentation Likely due to long-term steroid use patient is currently on prednisone 10 mg p.o. daily Blood culture obtained at the ED and follow-up with the result Continue monitoring CBC and for any sign of infection Will defer antibiotic treatment at this point (3) Suspected COVID-19 virus infection Is this a current diagnosis for this admission?: Yes Plan: Patient presents with fever, sore throat, anosmia and dysgeusia Has already been tested at the ER Currently saturating well on room air Continue supportive treatment for fever and possible shortness of breath Placed on enhanced airborne isolation Follow-up with COVID-19 test result (4) Diabetes Qualifiers: Diabetes mellitus type: type 2 Is this a current diagnosis for this admission?: Yes Plan: Placed on sliding scale insulin, Accu-Chek and hypoglycemia protocol On diabetic diet (5) Rheumatoid arthritis Qualifiers: Rheumatoid arthritis location: multiple sites Rheumatoid factor presence: unspecified presence Qualified Code(s): M06.9 - Rheumatoid arthritis, unspecified Is this a current diagnosis for this admission?: Yes Plan: Currently not on a flareup Continue methotrexate weekly, hydroxychloroquine, prednisone and folic acid at home dose (6) Vasculitis Is this a current diagnosis for this admission?: Yes Plan: Patient reports that she has a history of Sjogren's disease Currently stable and not on a flareup Continue medications as stated above under RA (7) Depression Is this a current diagnosis for this admission?: Yes Plan: Denies any homicidal or suicidal ideation. Resume home meds. Outpatient PCP and psychiatry follow-up. (8) Obesity Is this a current diagnosis for this admission?: Yes Plan: BMI 29.8. Diet and lifestyle modification recommended. (9) Chest pain Qualifiers: Chest pain type: unspecified Qualified Code(s): R07.9 - Chest pain, unspecified Is this a current diagnosis for this admission?: Yes Plan: as per problem #1. (10) Fibromyalgia Is this a current diagnosis for this admission?: Yes Plan: Resume home meds. Supportive measures. Patient has been followed by pain management as outpatient. Patient is stating that she was a started on fentanyl patch however she developed allergies to the past. (11) Acute kidney injury superimposed on CKD Is this a current diagnosis for this admission?: Yes Plan: Resolved. This was likely due to ibuprofen she received inpatient. DC NSAIDs. Continue volume resuscitation guided by volume status. Avoid nephrotoxic meds. - Time Time Spent with patient: 35 or more minutes Medications reviewed and adjusted accordingly: Yes Anticipated Discharge Disposition: Home with Home Health Anticipated Discharge Timeframe: within 48 hours
[2020-03-05] MEDS ORDERED: POTASSIUM CHLORIDE 10 MEQ TABLET.ER PO ONE (11:15)
[2020-03-05] MEDS: HYDROXYCHLOROQUINE SULFATE 200 MG TABLET PO SCH ×2 (11:34→17:42)
[2020-03-05] MEDS: LIDOCAINE 5% (700 MG) TRANSDERMAL ADH..PATCH TP SCH (11:34)
[2020-03-05] MEDS ORDERED: LOPERAMIDE HCL 2 MG CAPSULE PO ONE (16:45)
[2020-03-05] MEDS: HYDROXYZINE PAMOATE 25 MG CAPSULE PO SCH (21:58)
[2020-03-05] MEDS: ATORVASTATIN CALCIUM 80 MG TABLET PO SCH (21:58)
[2020-03-06] MEDS ORDERED: LOPERAMIDE HCL 2 MG CAPSULE PO ONE (05:00)
[2020-03-06] MEDS: PANTOPRAZOLE SODIUM 40 MG TABLET.DR PO SCH (05:43)
[2020-03-06] MEDS: FENTANYL CITRATE INJ/PF 100 MCG/2 ML AMPUL IV PRN ×3 (05:43→23:38)
[2020-03-06] MEDS: GABAPENTIN 300 MG CAPSULE PO SCH ×3 (05:43→23:40)
[2020-03-06] MEDS: NORMAL SALINE 1000 ML 1,000 ML IV PRN (05:45)
[2020-03-06 08:08] LABS: ANION GAP 7 (5-19); BLOOD UREA NITROGEN 9 mg/dL (7-20); C-REACTIVE PROTEIN 12.7 mg/L (<10.0); CALCIUM 8.6 mg/dL (8.4-10.2); CARBON DIOXIDE 24 mmol/L (22-30); CHLORIDE 111 mmol/L (98-107); GLUCOSE 127 mg/dL (75-110); POTASSIUM 3.4 mmol/L (3.6-5.0)
[2020-03-06] MEDS: INSULIN REG, HUMAN 100 UNIT/ML 3 ML VIAL (PYX) SUBCUT SCH ×4 (08:41→23:22)
[2020-03-06] MEDS: COLCHICINE 0.6 MG TABLET PO SCH (09:05)
[2020-03-06] MEDS ORDERED: LOPERAMIDE HCL 2 MG CAPSULE PO PRN (09:06)
[2020-03-06] MEDS: SERTRALINE HCL 50 MG TABLET PO SCH (09:32)
[2020-03-06] MEDS: OMEGA-3 ACID ETHYL ESTERS 1 GM CAPSULE PO SCH ×2 (09:32→17:07)
[2020-03-06] MEDS: FOLIC ACID 1 MG TABLET PO SCH (09:33)
[2020-03-06] MEDS: ENOXAPARIN SODIUM INJ 40 MG/0.4 ML DISP.SYRIN SUBCUT SCH (09:33)
[2020-03-06] MEDS: ASPIRIN 81 MG TABLET, CHEWABLE PO SCH (09:33)
[2020-03-06] MEDS: OXCARBAZEPINE 150 MG TABLET PO SCH ×2 (09:33→23:40)
[2020-03-06] MEDS: PREDNISONE 10 MG TABLET PO SCH (09:33)
[2020-03-06] MEDS: HYDROXYCHLOROQUINE SULFATE 200 MG TABLET PO SCH ×2 (09:33→17:07)
[2020-03-06] MEDS: LIDOCAINE 5% (700 MG) TRANSDERMAL ADH..PATCH TP SCH (09:33)
[2020-03-06] MEDS: DULOXETINE HCL 30 MG CAPSULE.DR PO SCH ×2 (09:33→23:40)
[2020-03-06] MEDS: LOSARTAN POTASSIUM 50 MG TABLET PO SCH (10:07)
[2020-03-06] MEDS ORDERED: DICYCLOMINE HCL 10 MG CAPSULE PO ONE (12:00)
--- NOTE | 2020-03-06 12:59 | PDOC PROGRESS REPORT ---
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 She states that the pain is aggravated by exertion and relieved with rest. Patient also endorses associated shortness of breath with exertion and for the past week she has been propping her head up when she sleeps. Associated with this for the past few days she has been having low-grade fever (she reports that she had a temperature of 100.3 at home today), chills, sore throat and reports that she has lost sense of smell and taste but denies any runny nose, congestion, nausea, vomiting, diarrhea. She states that she has a chronic cough and she has not noticed any significant change in the intensity of her cough recently. She denies any leg swelling, palpitation, dizziness. She states that she is status mostly at home and denies any recent sick contact history. 03/03/2020. No acute events overnight. Patient still complaining of sharp chest pain worsened by cough and movement, denies any fever, chills, nausea, vomiting. 03/04/2020. No acute events overnight, patient is still complaining of not being able to sleep much, still complaining of generalized aches and pains and chest pain worse on laying supine and better on sleeping on the side, denies any fever, chills, nausea, vomiting, diarrhea, constipation or any urinary symptoms. 03/05/2020. No acute events overnight. Patient complaining of generalized musculoskeletal pain worse in her back, however stating that her chest pain has significantly improved especially on the right side since being a started on colchicine, denies any fever, chills, nausea, vomiting, diarrhea or constipation. 03/06/2020. No acute events overnight. Patient has significant improvement of her chest pain but unfortunately she has developed severe diarrhea due to colchicine, before starting colchicine patient was warned about side effects, stating that she would rather stop colchicine and follow-up at [facility] to see if they could do something else for her pericarditis, I suggested we could lower the dose of colchicine however patient stating that she wants to start all over. Patient is denying any fever, chills, chest pain, fever, shortness of breath, constipation or any urinary symptoms. Still complaining of persistent chronic musculoskeletal pain. Patient could be discharged home tomorrow if diarrhea is resolved. Reason For Visit: CHEST PAIN Physical Exam Vital Signs: Temp Pulse Resp BP Pulse Ox 97.8 F 71 16 147/92 H 100 03/06/20 12:49 03/06/20 12:49 03/06/20 12:49 03/06/20 12:49 03/06/20 12:49 Intake & Output 03/05/20 03/06/20 03/07/20 06:59 06:59 06:59 Intake Total 1978 2317 318 Balance 1978 2317 555 Weight 74.4 kg 74.4 kg General appearance: PRESENT: no acute distress, obese, well-developed, well- nourished Head exam: PRESENT: atraumatic, normocephalic Respiratory exam: PRESENT: clear to auscultation keri. ABSENT: rales, rhonchi, wheezes Cardiovascular exam: PRESENT: RRR, other. ABSENT: diastolic murmur, rubs, systolic murmur GI/Abdominal exam: PRESENT: normal bowel sounds, soft. ABSENT: distended, guarding, mass, organolmegaly, rebound, tenderness Extremities exam: PRESENT: tenderness Neurological exam: PRESENT: alert, awake, oriented to person, oriented to place, oriented to time, oriented to situation, CN II-XII grossly intact. ABSENT: motor sensory deficit Results Laboratory Results: 03/04/20 04:50 03/06/20 07:09 03/06/20 07:09 Sodium 142.1 Potassium 3.4 L Chloride 111 H Carbon Dioxide 24 Anion Gap 7 BUN 9 Creatinine 0.72 Est GFR ( Amer) > 60 Glucose 127 H Calcium 8.6 C-Reactive Protein 12.7 H 03/02/20 20:10 Blood Blood Culture (PCR) - Final Staphylococcus Species 03/02/20 20:10 Blood Blood Culture - Final Staphylococcus Epidermidis 03/02/20 03/02/20 03/03/20 20:10 20:10 02:35 Troponin I < 0.012 < 0.012 NT-Pro-B Natriuret Pep 84 03/03/20 08:30 Troponin I < 0.012 NT-Pro-B Natriuret Pep Impressions: Chest X-Ray 03/02/20 17:41 IMPRESSION: IMAGE(S) OBTAINED DURING PROCEDURE. Assessment and Plan - Diagnosis (1) Pericarditis Qualifiers: Pericarditis type: associated with rheumatoid arthritis Chronicity: chronic Is this a current diagnosis for this admission?: Yes Plan: Moderate improvement however patient is having severe diarrhea due to colchicine and would like her colchicine to be stopped. Reporting resolution of chest pain. High risk of pericarditis given presentation and history heart to be to surgeon as patient has fibromyalgia, multiple rheumatological disorder COVID-19 infection. Patient has elevated inflammatory markers which at this cannot be too helpful given the history of multiple rheumatological disorder and COVID-19 infection. Elevated CRP. EKG negative for any acute changes. Troponins negative x3. Patient already on chronic steroid therapy, methotrexate. Patient was started on ibuprofen but noted to have worsening renal function. Patient is stating that she does have history of CKD. Not tolerating NSAIDs and already on methotrexate and chronic steroid therapy. She could not tolerate colchicine. Pending 2D echo. Patient stating after discharge she will be going to [facility] where she has been treated before, stating that she will try to see if she can find any alternative for treating her chronic pericarditis. (2) Leukocytosis Is this a current diagnosis for this admission?: Yes Plan: Resolved, WBC count was 13.8k on presentation Likely due to long-term steroid use patient is currently on prednisone 10 mg p.o. daily Blood culture obtained at the ED and follow-up with the result Continue monitoring CBC and for any sign of infection Will defer antibiotic treatment at this point (3) Suspected COVID-19 virus infection Is this a current diagnosis for this admission?: Yes Plan: Patient presents with fever, sore throat, anosmia and dysgeusia Has already been tested at the ER Currently saturating well on room air Continue supportive treatment for fever and possible shortness of breath Placed on enhanced airborne isolation Follow-up with COVID-19 test result (4) Diabetes Qualifiers: Diabetes mellitus type: type 2 Is this a current diagnosis for this admission?: Yes Plan: Placed on sliding scale insulin, Accu-Chek and hypoglycemia protocol On diabetic diet (5) Rheumatoid arthritis Qualifiers: Rheumatoid arthritis location: multiple sites Rheumatoid factor presence: unspecified presence Qualified Code(s): M06.9 - Rheumatoid arthritis, unspecified Is this a current diagnosis for this admission?: Yes Plan: Currently not on a flareup Continue methotrexate weekly, hydroxychloroquine, prednisone and folic acid at home dose (6) Vasculitis Is this a current diagnosis for this admission?: Yes Plan: Patient reports that she has a history of Sjogren's disease Currently stable and not on a flareup Continue medications as stated above under RA (7) Depression Is this a current diagnosis for this admission?: Yes Plan: Denies any homicidal or suicidal ideation. Resume home meds. Outpatient PCP and psychiatry follow-up. (8) Obesity Is this a current diagnosis for this admission?: Yes Plan: BMI 29.8. Diet and lifestyle modification recommended. (9) Chest pain Qualifiers: Chest pain type: unspecified Qualified Code(s): R07.9 - Chest pain, unspecified Is this a current diagnosis for this admission?: Yes Plan: as per problem #1. (10) Fibromyalgia Is this a current diagnosis for this admission?: Yes Plan: Resume home meds. Supportive measures. Patient has been followed by pain management as outpatient. Patient is stating that she was a started on fentanyl patch however she devel oped allergies to the past. (11) Acute kidney injury superimposed on CKD Is this a current diagnosis for this admission?: Yes Plan: Resolved. This was likely due to ibuprofen she received inpatient. DC NSAIDs. Continue volume resuscitation guided by volume status. Avoid nephrotoxic meds. (12) Diarrhea Qualifiers: Diarrhea type: unspecified type Qualified Code(s): R19.7 - Diarrhea, unspecified Is this a current diagnosis for this admission?: Yes Plan: Most likely due to colchicine. DC colchicine. Monitor volume status and electrolytes, replace lites as needed. As needed anti-diarrheal. Will check for C. difficile. - Time Time Spent with patient: 35 or more minutes Anticipated Discharge Disposition: Home with Home Health Anticipated Discharge Timeframe: within 48 hours
--- NOTE | 2020-03-06 19:46 | XCELERA REPORT ---
[address] [address] Transthoracic Echocardiogram Report Name: AARON REGAN Age: 54 yrs Gender: Female : 1965 Patient Status: Inpatient Patient Location: [address] [place], [place] [id number] Study Date: 03/06/2020 10:07 AM Height: 62 in Weight: 164 lb BSA: 1.8 m2 Procedure: A two-dimensional transthoracic echocardiogram with color flow and Doppler was performed. Study Quality: Poor. Reason For Study: pericarditis History: pericarditis. Ordering Physician: SANNA WALKER Performed By: Jonna Alvarenga Interpretation Summary The left ventricle is normal in size. There is normal left ventricular wall thickness. LV EF is Greater than 60% Left ventricular systolic function is normal. Doppler measurements suggest impaired left ventricular relaxation, which is associated with grade I/IV or mild diastolic dysfunction The left ventricular wall motion is normal. There is no thrombus. Probably no ASD,VSD,or PFO seen. The right ventricle is not well visualized secondary to technical limitations The right atrium is normal. The left atrial size is normal. There is no evidence of mitral valve prolapse. There is no vegetation seen on the mitral valve. There is no mitral valve stenosis. There is a trace amount of mitral regurgitation There is no aortic valvular vegetation. There is no aortic valve stenosis No aortic regurgitation is present. There is no tricuspid stenosis. There is a trace to mild amount of tricuspid regurgitation Right ventricular systolic pressure is normal. RVSP is 23 mm of Hg , with RA mean of 10. There is no pulmonic valvular stenosis. There is no pulmonic valvular regurgitation. The aortic root is not well visualized but is probably normal size. The inferior vena cava appeared normal and decreased > 50% with respiration (RAP 5-10 mmHg) There is no pericardial effusion. MMode/2D Measurements & Calculations RVDd: 2.7 cm LVIDd: 4.3 cm FS: 36.0 % Ao root diam: 2.1 cm IVSd: 1.1 cm LVIDs: 2.8 cm EDV(Teich): Ao root area: LVPWd: 0.93 cm 83.9 ml 3.4 cm2 ESV(Teich): LA dimension: 3.7 cm 28.6 ml EF(Teich): 65.9 % LVLd ap4: 7.5 cm SV(MOD-sp4): EDV(MOD-sp4): 39.0 ml 64.0 ml LVLs ap4: 6.4 cm ESV(MOD-sp4): 25.0 ml EF(MOD-sp4): 60.9 % Doppler Measurements & Calculations MV E max cuong: MV P1/2t max cuong: Ao V2 max: LV V1 max P.5 cm/sec 81.4 cm/sec 132.0 cm/sec 3.5 mmHg MV A max cuong: MV P1/2t: 42.8 msec Ao max P.0 mmHg LV V1 max: 95.3 cm/sec MVA(P1/2t): 5.1 cm2 93.8 cm/sec MV E/A: 0.83 MV dec slope: 556.9 cm/sec2 MV dec time: 0.20 sec PA V2 max: TR max cuong: MV P1/2t-pr_phl: 112.7 cm/sec 182.4 cm/sec 42.8 msec PA max P.1 mmHgTR max P.3 mmHg Left Ventricle The left ventricle is normal in size. There is normal left ventricular wall thickness. LV EF is Greater than 60%. Left ventricular systolic function is normal. Doppler measurements suggest impaired left ventricular relaxation, which is associated with grade I/IV or mild diastolic dysfunction. The left ventricular wall motion is normal. There is no thrombus. Probably no ASD,VSD,or PFO seen. Right Ventricle The right ventricle is not well visualized secondary to technical limitations. Atria The right atrium is normal. The left atrial size is normal. Mitral Valve There is no evidence of mitral valve prolapse. There is no vegetation seen on the mitral valve. There is no mitral valve stenosis. There is a trace amount of mitral regurgitation. Aortic Valve There is no aortic valvular vegetation. There is no aortic valve stenosis. No aortic regurgitation is present. Tricuspid Valve There is no tricuspid stenosis. There is a trace to mild amount of tricuspid regurgitation. Right ventricular systolic pressure is normal. RVSP is 23 mm of Hg , with RA mean of 10. Pulmonic Valve There is no pulmonic valvular stenosis. There is no pulmonic valvular regurgitation. Great Vessels The aortic root is not well visualized but is probably normal size. The inferior vena cava appeared normal and decreased > 50% with respiration (RAP 5-10 mmHg). Effusions There is no pericardial effusion. : SANNA WALKER Lakshmi
[2020-03-06 20:48] LABS: C DIFFICILE GDH POSITIVE (NEGATIVE)
[2020-03-06] MEDS: HYDROXYZINE PAMOATE 50 MG CAPSULE PO SCH (23:40)
[2020-03-06] MEDS: ATORVASTATIN CALCIUM 80 MG TABLET PO SCH (23:50)
[2020-03-07] MEDS: VANCOMYCIN HCL INJ 500 MG VIAL PO SCH ×4 (01:13→18:00)
[2020-03-07] MEDS: LACTOBACILLUS ACIDOPHILUS 250 MG TAB PO SCH ×3 (01:14→17:59)
[2020-03-07 06:36] LABS: ALBUMIN 3.4 g/dL (3.5-5.0); ALKALINE PHOSPHATASE 94 U/L (38-126); ANION GAP 8 (5-19); ASPARTATE AMINO TRANSFERASE 19 U/L (14-36); BILIRUBIN,DIRECT 0.2 mg/dL (0.0-0.4); BILIRUBIN,TOTAL 0.5 mg/dL (0.2-1.3); BLOOD UREA NITROGEN 7 mg/dL (7-20); CARBON DIOXIDE 22 mmol/L (22-30); CHLORIDE 111 mmol/L (98-107); GLUCOSE 117 mg/dL (75-110); TOTAL PROTEIN 5.8 g/dL (6.3-8.2)
[2020-03-07] MEDS: PANTOPRAZOLE SODIUM 40 MG TABLET.DR PO SCH (06:37)
[2020-03-07] MEDS: GABAPENTIN 300 MG CAPSULE PO SCH ×3 (06:37→21:27)
[2020-03-07 06:52] LABS: POTASSIUM 2.9 mmol/L (3.6-5.0)
[2020-03-07] MEDS: FENTANYL CITRATE INJ/PF 100 MCG/2 ML AMPUL IV PRN ×2 (08:13→18:08)
[2020-03-07] MEDS: INSULIN REG, HUMAN 100 UNIT/ML 3 ML VIAL (PYX) SUBCUT SCH ×3 (08:18→16:46)
[2020-03-07] MEDS: POTASSIUM CHLORIDE 10 MEQ TABLET.ER PO SCH ×2 (10:41→21:29)
[2020-03-07] MEDS: POTASSI CL 20 MEQ/50 ML RIDER 20 MEQ/50 ML RTUPB IV SCH ×3 (10:41→14:28)
[2020-03-07] MEDS: OMEGA-3 ACID ETHYL ESTERS 1 GM CAPSULE PO SCH ×2 (10:42→18:00)
[2020-03-07] MEDS: DULOXETINE HCL 30 MG CAPSULE.DR PO SCH ×2 (10:42→21:28)
[2020-03-07] MEDS: ASPIRIN 81 MG TABLET, CHEWABLE PO SCH (10:42)
[2020-03-07] MEDS: HYDROXYCHLOROQUINE SULFATE 200 MG TABLET PO SCH ×2 (10:42→18:03)
[2020-03-07] MEDS: OXCARBAZEPINE 150 MG TABLET PO SCH ×2 (10:42→21:28)
[2020-03-07] MEDS: PREDNISONE 10 MG TABLET PO SCH (10:42)
[2020-03-07] MEDS: SERTRALINE HCL 50 MG TABLET PO SCH (10:43)
[2020-03-07] MEDS: LIDOCAINE 5% (700 MG) TRANSDERMAL ADH..PATCH TP SCH (10:44)
[2020-03-07] MEDS: LOSARTAN POTASSIUM 50 MG TABLET PO SCH (10:49)
[2020-03-07] MEDS: FOLIC ACID 1 MG TABLET PO SCH (10:49)
[2020-03-07] MEDS ORDERED: DIPHENHYDRAMINE HCL 50 MG/ML VIAL ONE (10:54)
[2020-03-07] MEDS: ENOXAPARIN SODIUM INJ 40 MG/0.4 ML DISP.SYRIN SUBCUT SCH (10:56)
[2020-03-07] MEDS ORDERED: DIPHENHYDRAMINE HCL 50 MG/ML VIAL IV ONE (11:30)
[2020-03-07] MEDS ORDERED: METHOTREXATE SODIUM 2.5 MG TABLET PO SCH (13:49)
--- NOTE | 2020-03-07 17:34 | PDOC PROGRESS REPORT ---
Subjective Date:: 03/07/20 Subjective:: Chest pain feels better. Had several episodes of diarrhea yesterday. Reason For Visit: CHEST PAIN Physical Exam Vital Signs: Temp Pulse Resp BP Pulse Ox 98.2 F 81 16 150/84 H 99 03/07/20 16:49 03/07/20 16:49 03/07/20 16:49 03/07/20 16:49 03/07/20 16:49 Intake & Output 03/06/20 03/07/20 03/08/20 06:59 06:59 06:59 Intake Total 2318 1325 250 Balance 2318 1325 250 Weight 74.4 kg 74.4 kg General appearance: PRESENT: no acute distress, cooperative Neck exam: ABSENT: JVD Respiratory exam: PRESENT: chest wall tenderness - Chest pain is reproducible, symmetrical, unlabored. ABSENT: tachypnea, wheezes Cardiovascular exam: PRESENT: RRR, +S1, +S2. ABSENT: tachycardia GI/Abdominal exam: PRESENT: soft. ABSENT: rebound, rigid, tenderness Neurological exam: PRESENT: alert, awake, oriented to person, oriented to place, oriented to time Psychiatric exam: ABSENT: agitated, anxious Skin exam: ABSENT: rash Results Laboratory Results: 03/04/20 04:50 03/07/20 05:28 03/06/20 03/07/20 19:28 05:28 Sodium 140.5 Potassium 2.9 L* Chloride 111 H Carbon Dioxide 22 Anion Gap 8 BUN 7 Creatinine 0.71 Est GFR ( Amer) > 60 Glucose 117 H Calcium 9.0 Total Bilirubin 0.5 AST 19 Alkaline Phosphatase 94 Total Protein 5.8 L Albumin 3.4 L Stl C.difficile Tox PCR POSITIVE 03/02/20 03/02/20 03/03/20 20:10 20:10 02:35 Troponin I < 0.012 < 0.012 NT-Pro-B Natriuret Pep 84 03/03/20 08:30 Troponin I < 0.012 NT-Pro-B Natriuret Pep Impressions: Chest X-Ray 03/02/20 17:41 IMPRESSION: IMAGE(S) OBTAINED DURING PROCEDURE. Assessment and Plan - Diagnosis (1) C. difficile colitis Is this a current diagnosis for this admission?: Yes Plan: Discontinued Imodium. Started on vancomycin p.o. (2) Hypokalemia due to excessive gastrointestinal loss of potassium Is this a current diagnosis for this admission?: Yes Plan: Potassium is 2.9 today. Secondary to multiple bouts of diarrhea. We will give IV KCl as well as p.o. repletion's. Check potassium level this evening as well as magnesium level. (3) Chest pain Qualifiers: Chest pain type: unspecified Qualified Code(s): R07.9 - Chest pain, unspecified Is this a current diagnosis for this admission?: Yes Plan: Chest pain is reproducible. Likely musculoskeletal pain. Troponins were all negative on presentation. I reviewed echocardiogram results as well as EKG imaging results on both of them did not show any evidence of pericarditis. No ST elevations or ND depressions noted on EKG. Analgesia as needed. (4) Fibromyalgia Is this a current diagnosis for this admission?: Yes (5) Leukocytosis Is this a current diagnosis for this admission?: Yes (6) Obesity Is this a current diagnosis for this admission?: Yes (7) Diabetes Qualifiers: Diabetes mellitus type: type 2 Is this a current diagnosis for this admission?: Yes (8) Rheumatoid arthritis Qualifiers: Rheumatoid arthritis location: multiple sites Rheumatoid factor presence: unspecified presence Qualified Code(s): M06.9 - Rheumatoid arthritis, un specified Is this a current diagnosis for this admission?: Yes Plan: Currently not on a flareup Continue methotrexate weekly, hydroxychloroquine, prednisone and folic acid at home dose (9) Vasculitis Is this a current diagnosis for this admission?: Yes Plan: Patient reports that she has a history of Sjogren's disease Currently stable and not on a flareup Continue medications as stated above under RA - Time Time Spent with patient: 15-24 minutes Anticipated Discharge Disposition: Home, Self Care Anticipated Discharge Timeframe: within 36 hours
[2020-03-07 19:02] LABS: POTASSIUM 4.1 mmol/L (3.6-5.0)
[2020-03-07] MEDS: ATORVASTATIN CALCIUM 80 MG TABLET PO SCH (21:27)
[2020-03-07] MEDS: HYDROXYZINE PAMOATE 50 MG CAPSULE PO SCH (21:28)
--- NOTE | 2020-03-08 00:12 | CDI QUERY ---
<CAMI ACUNA - Last Filed: 03/08/20 00:11> CDI Query CDI Review: We are seeking further clarification of documentation to reflect the severity of illness of your patient. Per Progress Notes 03/07/2020: Chest pain is reproducible. Likely musculoskeletal pain. Troponins were all negative on presentation. I reviewed echocardiogram results as well as EKG imaging results on both of them did not show any evidence of pericarditis. No ST elevations or [place] depressions noted on EKG. Analgesia as needed. Per Progress Notes -03/06/2020: Pericarditis Qualifiers: Pericarditis type: associated with rheumatoid arthritis Chronicity: chronic Is this a current diagnosis for this admission?: Yes Plan: High risk of pericarditis given presentation and history heart to be to surgeon as patient has fibromyalgia, multiple rheumatological disorder COVID-19 infection. Patient has elevated inflammatory markers which at this cannot be too helpful given the history of multiple rheumatological disorder and COVID-19 infection. Per Progress Notes 03/06/2020: Patient stating after discharge she will be going to [facility] where she has been treated before, stating that she will try to see if she can find any alternative for treating her chronic pericarditis. Based on your medical judgement, can you further clarify in the Progress Notes: Acute on chronic pericariditis Chronic Pericarditis Pericarditis resolved Pericarditis ruled out Unable to determine Other Thank you for your consideration. YANET Jean RN Clinical [employer] Work[employer] Physician Advisor <SMITH LAWS - Last Filed: 03/08/20 11:14> CDI Query Agree with Query: No - refer to note
[2020-03-08] MEDS: INSULIN REG, HUMAN 100 UNIT/ML 3 ML VIAL (PYX) SUBCUT SCH ×2 (00:26→08:04)
[2020-03-08] MEDS: VANCOMYCIN HCL INJ 500 MG VIAL PO SCH ×2 (01:22→06:02)
[2020-03-08] MEDS: FENTANYL CITRATE INJ/PF 100 MCG/2 ML AMPUL IV PRN ×2 (02:15→11:00)
[2020-03-08] MEDS: GABAPENTIN 300 MG CAPSULE PO SCH (06:02)
[2020-03-08 06:03] LABS: ANION GAP 7 (5-19); BLOOD UREA NITROGEN 8 mg/dL (7-20); CALCIUM 9.2 mg/dL (8.4-10.2); CARBON DIOXIDE 23 mmol/L (22-30); CHLORIDE 110 mmol/L (98-107); GLUCOSE 144 mg/dL (75-110); POTASSIUM 4.1 mmol/L (3.6-5.0)
[2020-03-08] MEDS ORDERED: INFLUENZA QUAD (6MOS+) 2020-21 VAC 0.5 ML SYR IM ONE (08:00)
[2020-03-08] MEDS: HYDROXYCHLOROQUINE SULFATE 200 MG TABLET PO SCH (09:29)
[2020-03-08] MEDS: OXCARBAZEPINE 150 MG TABLET PO SCH (09:30)
[2020-03-08] MEDS: SERTRALINE HCL 50 MG TABLET PO SCH (09:30)
[2020-03-08] MEDS: POTASSIUM CHLORIDE 10 MEQ TABLET.ER PO SCH (09:30)
[2020-03-08] MEDS: OMEGA-3 ACID ETHYL ESTERS 1 GM CAPSULE PO SCH (09:31)
[2020-03-08] MEDS: DULOXETINE HCL 30 MG CAPSULE.DR PO SCH (09:31)
[2020-03-08] MEDS: FOLIC ACID 1 MG TABLET PO SCH (09:31)
[2020-03-08] MEDS: LOSARTAN POTASSIUM 50 MG TABLET PO SCH (09:31)
[2020-03-08] MEDS: LACTOBACILLUS ACIDOPHILUS 250 MG TAB PO SCH (09:32)
[2020-03-08] MEDS: ENOXAPARIN SODIUM INJ 40 MG/0.4 ML DISP.SYRIN SUBCUT SCH (09:37)
[2020-03-08] MEDS: ASPIRIN 81 MG TABLET, CHEWABLE PO SCH (10:26)
[2020-03-08] MEDS: PREDNISONE 10 MG TABLET PO SCH (10:26)
[2020-03-08] MEDS: LIDOCAINE 5% (700 MG) TRANSDERMAL ADH..PATCH TP SCH (10:27)
[2020-03-08 11:09] VITALS: BP 144/76
--- NOTE | 2020-03-08 11:14 | PDOC DISCHARGE SUMMARY ---
Impression - Admit/DC Date/PCP Admission Date/Primary Care Provider: 03/05/20 16:55 TERRENCE SAMS MD Discharge Date: 03/08/20 - Discharge Diagnosis (1) C. difficile colitis Is this a current diagnosis for this admission?: Yes (2) Hypokalemia due to excessive gastrointestinal loss of potassium Is this a current diagnosis for this admission?: Yes (3) Chest pain Is this a current diagnosis for this admission?: Yes (4) Fibromyalgia Is this a current diagnosis for this admission?: Yes (5) Leukocytosis Is this a current diagnosis for this admission?: Yes (6) Obesity Is this a current diagnosis for this admission?: Yes (7) Diabetes Is this a current diagnosis for this admission?: Yes (8) Rheumatoid arthritis Is this a current diagnosis for this admission?: Yes (9) Vasculitis Is this a current diagnosis for this admission?: Yes - Additional Information Resuscitation Status: Full Code Discharge Diet: Regular Referrals: MARK PERSON MD [ACTIVE STAFF] - TERRENEC SAMS MD [Primary Care Provider] - 03/16/20 11:00 am Prescriptions: Potassium Chloride 20 meq PO DAILY #20 tablet.er Vancomycin HCl 125 mg PO Q6 8 Days #32 capsule Home Medications: Aspirin [Aspirin 81 mg Chewable Tablet] 81 mg PO DAILY 06/02/13 Cevimeline HCl [Evoxac] 30 mg PO TID 06/02/13 Simvastatin 40 mg PO DAILY 06/02/13 Gabapentin 300 mg PO TID 06/08/13 Sertraline HCl 200 mg PO DAILY 09/26/15 Methotrexate Sodium [Rheumatrex 2.5 mg Tablet] 10 mg PO TU 06/11/19 Folic Acid [Folvite 1 mg Tablet] 1 mg PO DAILY tablet 06/14/19 Hydroxychloroquine Sulfate [Plaquenil 200 mg Tablet] 200 mg PO BID tablet 06/14/19 Diclofenac Sodium 2 gm TP TID 03/03/20 Duloxetine HCl [Cymbalta 30 mg Capsule.dr] 120 mg PO DAILY 03/03/20 Hydroxyzine Pamoate 25 mg PO QIDP PRN 03/03/20 Hydroxyzine Pamoate 50 mg PO QHS 03/03/20 Morphine Sulfate [Morphine Sulfate ER] 30 mg PO TID 03/03/20 [place]-3/Dha/Epa/Fish Oil [Fish Oil 1,000 mg Softgel] 1 each PO BID 03/03/20 Oxcarbazepine [Trileptal 150 mg Tablet] 150 mg PO DAILY 03/03/20 Pantoprazole Sodium [Protonix [address] Tablet] 40 mg PO QAM 03/03/20 Prednisone [Deltasone 5 mg Tablet] 10 mg PO DAILY 03/03/20 Rosuvastatin Calcium [Crestor] 40 mg PO QHS 03/03/20 Telmisartan 40 mg PO DAILY 03/03/20 Potassium Chloride 20 meq PO DAILY #20 tablet.er 03/08/20 Vancomycin HCl 125 mg PO Q6 8 Days #32 capsule 03/08/20 History of Present Illiness History of Present Illness: According to admitting provider: AARON REGAN is a 54 year old female with a history of multiple connective tissue diseases including rheumatoid arthritis, Sjogren's disease for which she is 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 She states that the pain is aggravated by exertion and relieved with rest. Patient also endorses associated shortness of breath with exertion and for the past week she has been propping her head up when she sleeps. Associated with this for the past few days she has been having low-grade fever (she reports that she had a temperature of 100.3 at home today), chills, sore throat and reports that she has lost sense of smell and taste but denies any runny nose, congestion, nausea, vomiting, diarrhea. She states that she has a chronic cough and she has not noticed any significant change in the intensity of her cough recently. She denies any leg swelling, palpitation, dizziness. She states that she is status mostly at home and denies any recent sick contact history. Hospital Course Hospital Course: Patient was admitted for evaluation of chest pain. Chest x-ray was unremarkable. Flu test and Covid test were negative. Troponins were negative x3. EKG showed no evidence of new ischemic changes. Echocardiogram also showed heart systolic function mild grade 1 diastolic dysfunction and normal heart wall motion. No evidence of heart failure was noted. Also given patient's EKG that showed no evidence of ST elevations or IA depressions as well as normal- appearing pericardium without any pericardial effusion on echo, pericarditis was deemed to be highly unlikely and ruled out. Patient's chest pain was thought to be musculoskeletal in origin. [id number]-[id number] analgesics recommended. Patient also developed diarrhea while in the hospital. Her Imodium was discontinued and C. difficile testing was positive. She has been initiated on treatment for C. difficile colitis. She will be treated for 10 days total with oral vancomycin. I have warned her to be cautious about her morphine use to prevent any complication of her colitis. She did need aggressive IV repletion of potassium the prior day after experiencing several bouts of diarrhea 2 days ago. Yesterday she states she barely had any diarrhea. Her potassium has also remained normal. She is feeling well and ready to go home. She denies any significant abdominal pain with exception for mild epigastric pain and reflux. Has good bowel sounds on exam today and benign abdominal exam. She is ready to go home. I will send her home to complete therapy I have encouraged adequate hydration and I will send her home with potassium supplements as well. 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 Person for further care. Physical Exam Vital Signs: Temp Pulse Resp BP Pulse Ox 97.9 F 73 18 115/78 97 03/08/20 08:06 03/08/20 08:06 03/08/20 08:06 03/08/20 08:06 03/08/20 08:06 Intake & Output 03/07/20 03/08/20 03/09/20 06:59 06:59 06:59 Intake Total 1325 1140 Balance 1325 1140 Weight 74.4 kg 79 kg General appearance: PRESENT: no acute distress, cooperative Respiratory exam: PRESENT: unlabored. ABSENT: wheezes GI/Abdominal exam: PRESENT: normal bowel sounds, soft. ABSENT: distended, firm, guarding, hernia, hypoactive bowel sounds, rebound, rigid, tenderness Neurological exam: PRESENT: alert, awake, oriented to person, oriented to place, oriented to time Results Laboratory Results: WBC 9.1 10^3/uL (4.0-10.5) 03/04/20 04:50 RBC 3.79 10^6/uL (3.72-5.28) 03/04/20 04:50 Hgb 11.1 g/dL (12.0-15.5) L 03/04/20 04:50 Hct 33.2 % (36.0-47.0) L 03/04/20 04:50 MCV 88 fl (80-97) 03/04/20 04:50 MCH 29.3 pg (27.0-33.4) 03/04/20 04:50 MCHC 33.5 g/dL (32.0-36.0) 03/04/20 04:50 RDW 13.5 % (11.5-14.0) 03/04/20 04:50 Plt Count 412 10^3/uL (150-450) 03/04/20 04:50 Lymph % (Auto) 28.2 % (13-45) 03/04/20 04:50 [place] % (Auto) 9.9 % (3-13) 03/04/20 04:50 Eos % (Auto) 2.1 % (0-6) 03/04/20 04:50 Baso % (Auto) 1.1 % (0-2) 03/04/20 04:50 Absolute Neuts (auto) 5.3 10^3/uL (1.7-8.2) 03/04/20 04:50 Absolute Lymphs (auto) 2.6 10^3/uL (0.5-4.7) 03/04/20 04:50 Absolute Monos (auto) 0.9 10^3/uL (0.1-1.4) 03/04/20 04:50 Absolute Eos (auto) 0.2 10^3/uL (0.0-0.6) 03/04/20 04:50 Absolute Basos (auto) 0.1 10^3/uL (0.0-0.2) 03/04/20 04:50 Seg Neutrophils % 58.7 % (42-78) 03/04/20 04:50 D-Dimer < 0.27 ug/mL (0.00-0.50) 03/02/20 20:10 VBG pH 7.31 (7.30-7.42) 03/02/20 20:10 VBG pCO2 51.0 mmHg (35-63) 03/02/20 20:10 VBG HCO3 25.0 mmol/L (20-32) 03/02/20 20:10 VBG Base Excess -2.0 mmol/L 03/02/20 20:10 Sodium 139.6 mmol/L (137-145) 03/08/20 05:25 Potassium 4.1 mmol/L (3.6-5.0) 03/08/20 05:25 Chloride 110 mmol/L (98-107) H 03/08/20 05:25 Carbon Dioxide 23 mmol/L (22-30) 03/08/20 05:25 Anion Gap 7 (5-19) 03/08/20 05:25 BUN 8 mg/dL (7-20) 03/08/20 05:25 Creatinine 0.77 mg/dL (0.52-1.25) 03/08/20 05:25 Est GFR ( Amer) > 60 (>60) 03/08/20 05:25 Est GFR (MDRD) Non-Af > 60 (>60) 03/08/20 05:25 Glucose 144 mg/dL (75-110) H 03/08/20 05:25 Lactic Acid 1.0 mmol/L (0.7-2.1) 03/02/20 20:10 Calcium 9.2 mg/dL (8.4-10.2) 03/08/20 05:25 Magnesium 1.8 mg/dL (1.6-2.3) 03/08/20 05:25 Total Bilirubin 0.5 mg/dL (0.2-1.3) 03/07/20 05:28 Direct Bilirubin 0.2 mg/dL (0.0-0.4) 03/07/20 05:28 Neonat Total Bilirubin Not Reportable 03/07/20 05:28 Neonat Direct Bilirubin Not Reportable 03/07/20 05:28 Neonat Indirect Bili Not Reportable 03/07/20 05:28 AST 19 U/L (14-36) 03/07/20 05:28 ALT 14 U/L (<35) 03/07/20 05:28 Alkaline Phosphatase 94 U/L (38-126) 03/07/20 05:28 Troponin I < 0.012 ng/mL 03/03/20 08:30 C-Reactive Protein 12.7 mg/L (<10.0) H 03/06/20 07:09 NT-Pro-B Natriuret Pep 84 pg/mL (<125) 03/02/20 20:10 Total Protein 5.8 g/dL (6.3-8.2) L 03/07/20 05:28 Albumin 3.4 g/dL (3.5-5.0) L 03/07/20 05:28 Stl C. Difficile GDH Ag POSITIVE (NEGATIVE) 03/06/20 19:28 Stl C.difficile Tox A&B NEGATIVE (NEGATIVE) 03/06/20 19:28 Stl C.difficile Tox PCR POSITIVE (NEGATIVE) 03/06/20 19:28 COVID-19 Source See comment 03/02/20 19:55 COVID-19 (KAREN) Not Detected (Not Detect) 03/02/20 19:55 Influenza A (Rapid) NEGATIVE (NEGATIVE) 03/02/20 23:15 Influenza B (Rapid) NEGATIVE (NEGATIVE) 03/02/20 23:15 03/02/20 03/02/20 03/03/20 20:10 20:10 02:35 Troponin I < 0.012 < 0.012 NT-Pro-B Natriuret Pep 84 03/03/20 08:30 Troponin I < 0.012 NT-Pro-B Natriuret Pep Impressions: Chest X-Ray 03/02/20 17:41 IMPRESSION: IMAGE(S) OBTAINED DURING PROCEDURE. Plan Time Spent: Greater than 30 Minutes Stroke Is this a Stroke Patient?: No Acute Heart Failure Is this a Heart Failure Patient?: No
== END 2020-03-08 11:20 | disposition home or self-care (01) | DRG 313 ==
LOC: ER 17:21 → EH 22:40 → INTOOBSV 22:40 → 3W 03-03 16:35 → 4W 03-04 18:53 → OBSVTOIN 03-05 16:55
PROVIDERS: ADMIT Student in an Organized Health Care Education/Training Program; ATTEND Internal Medicine
DX: R07.89 Other chest pain (principal); A04.72 Enterocolitis due to Clostridium difficile, not specified as recurrent; N17.9 Acute kidney failure, unspecified; I77.6 Arteritis, unspecified; E87.6 Hypokalemia; M35.00 Sjogren syndrome, unspecified; M06.9 Rheumatoid arthritis, unspecified; M32.9 Systemic lupus erythematosus, unspecified; E78.5 Hyperlipidemia, unspecified; E11.9 Type 2 diabetes mellitus without complications; I10 Essential (primary) hypertension; R05 Cough; J02.9 Acute pharyngitis, unspecified; Z79.52 Long term (current) use of systemic steroids; E66.9 Obesity, unspecified; F32.9 Major depressive disorder, single episode, unspecified; M79.7 Fibromyalgia; D72.829 Elevated white blood cell count, unspecified; Z20.828 Contact with and (suspected) exposure to other viral communicable diseases; Z90.49 Acquired absence of other specified parts of digestive tract; Z79.4 Long term (current) use of insulin; Z79.899 Other long term (current) drug therapy; Z88.0 Allergy status to penicillin; Z88.2 Allergy status to sulfonamides; Z88.1 Allergy status to other antibiotic agents; Z91.041 Radiographic dye allergy status; Z23 Encounter for immunization
CPT/HCPCS: 36415; 71045; 80048; 80053; 82803; 83605; 83735; 83880; 84132; 84484; 85025; 85379; 86140; 87040; 87077; 87150; 87186; 87324; 87449; 87493; 87635; 87804; 93005; 93010; 93306; 96361; 96374; 99285; C9803; G0378; J1170; J1200; J1650; J2405; J3010; J3370; J3480; J3490; J7030; J7512; J8610

== ENCOUNTER 2020-03-20 08:56 | Day surgery (SDC) | payer BC, MEDICARE, OTHER ==
[~2020-03-20 08:56] MED LIST changes: +LIDOCAINE 2% INJ-PF (20 MG/ML) 10 ML AMPUL ONE
[2020-03-20 10:42] VITALS: BP 126/78
--- NOTE | 2020-03-20 11:04 | Operative Report ---
Operative Report DATE OF SURGERY: 03/20/20 Operative Report: The risks benefits and alternatives of the procedure explained to the patient in detail and informed consent is obtained.A GIF Olympus video scope was inserted into the patient's mouth and hypopharynx, the esophagus is identified intubated and insufflated ,the scope was then advanced through the esophagus stomach and duodenum ,retroflexion maneuver is done ,the esophagus stomach and first and second portions of the duodenum examined PREOPERATIVE DIAGNOSIS: Gastroesophageal reflux disease, epigastric pain POSTOPERATIVE DIAGNOSIS: Gastritis status post biopsy OPERATION: EGD with biopsy SURGEON: MARK PERSON ANESTHESIA: LMAC TISSUE REMOVED OR ALTERED: As noted above. COMPLICATIONS: None. ESTIMATED BLOOD LOSS: None. INTRAOPERATIVE FINDINGS: As noted above. PROCEDURE: Patient tolerated the procedure well. No immediate postprocedure complications are noted. Patient is discharged in good condition. Discharge date 03/20/2020. Discharge diet: Regular. Discharge activity: Regular. 2 to 3-week follow-up to discuss findings. Patient is instructed to call the office or proceed to the emergency room should there be any further problems questions. Wait on the pathology.
== END 2020-03-20 11:22 | disposition home or self-care (01) ==
LOC: END 08:56
PROVIDERS: ATTEND Internal Medicine Gastroenterology
DX: K29.50 Unspecified chronic gastritis without bleeding (principal); M06.9 Rheumatoid arthritis, unspecified; E66.9 Obesity, unspecified; K21.9 Gastro-esophageal reflux disease without esophagitis; F25.1 Schizoaffective disorder, depressive type; N18.9 Chronic kidney disease, unspecified; Z85.9 Personal history of malignant neoplasm, unspecified; Z92.21 Personal history of antineoplastic chemotherapy; Z79.899 Other long term (current) drug therapy; Z86.19 Personal history of other infectious and parasitic diseases
CPT/HCPCS: 43239; 88305 ×2; J2704; J3490; 731